=== PATIENT | female | born 1940 | race Caucasian/White ===

== ENCOUNTER 2017-02-22 08:49 | Emergency (ER) | payer OTHER ==
[2017-02-22 08:53] VITALS: TEMP 98.4; BMI 28.9
[2017-02-22] MEDS ORDERED: OXYMETAZOLINE 0.05% NASAL SOLUTION 15 ML BOTTLE NS ONE (09:03)
--- NOTE | 2017-02-22 09:53 | PDOC ---
History of Present Illness - General Chief Complaint: Nasal Bleeding Stated Complaint: NOSE BLEED Time Seen by Provider: 02/22/17 08:54 - History of Present Illness Initial Comments: 02/22/17 09:48 76-year-old female with a past medical history of hypertension, polymyalgia rheumatica, on ASA 81mg, lung ca and uterine ca in remission p/w nose bleeding from the R nostril since 1am. Patient denies any trauma or nose picking. She denies any clots, only drops of bright red blood. She has been using a towel to wipe the blood pressure has not placed any pressure on her nose. Does not feel the blood trickling back in her throat. She reports a nosebleed 3 weeks ago that resolved on its own after one hour. She denies any nosebleeds prior to that. She reports she was in her usual state of good health and is not on any new medications. She reports her blood pressure is typically well controlled. Denies fevers, chills, nausea, vomiting, diarrhea Denies chest pain or shortness of breath Denies headache, focal weakness or numbness, dizziness. PMD: Dr. Colindres Past History - Past Medical History Allergies/Adverse Reactions: Allergies Allergy/AdvReac Type Severity Reaction Status Date / Time No Known Allergies Allergy Verified 01/08/16 08:15 Home Medications: Ambulatory Orders Aspirin [Aspir-Low] 81 mg PO DAILY 12/06/13 Amox-Tr/K Cl [Augmentin - 875Mg Tablet] 1 tab PO BID #10 tablet 02/22/17 Anemia: No Asthma: No Cancer: Yes (UTERUS/LUNG) Cardiac Disorders: Yes (CAD,stents x2) CVA: No COPD: No CHF: No Dementia: No Diabetes: No (BORDERLINE- DIET CONTROLLED) GI Disorders: Yes (GERD) Disorders: No HTN: Yes Hypercholesterolemia: Yes Liver Disease: No Seizures: No Thyroid Disease: No - Surgical History Abdominal Surgery: Yes Appendectomy: No Cardiac Surgery: No (Angioplasty with Stents 09/2014) Cholecystectomy: Yes Lung Surgery: Yes (Left Lobectomy) Neurologic Surgery: No Orthopedic Surgery: No - Immunization History Td Vaccination: (UNKNOWN) Immunization Up to Date: Yes - Suicide/Smoking/Psychosocial Hx Smoking Status: No Smoking History: Former smoker Have you smoked in the past 12 months: No Number of Cigarettes Smoked Daily: 0 If you are a former smoker, when did you quit?: 2004 Information on smoking cessation initiated: No Hx Alcohol Use: No Drug/Substance Use Hx: No Substance Use Type: None Hx Substance Use Treatment: No Review of Systems - Review of Systems Comments:: 02/22/17 09:53 GENERAL/CONSTITUTIONAL: No fever or chills. No weakness. HEAD, EYES, EARS, NOSE AND THROAT: No change in vision. No ear pain or discharge. No sore throat. +nose bleed GASTROINTESTINAL: No nausea, vomiting, diarrhea or constipation. GENITOURINARY: No dysuria, frequency, or change in urination. CARDIOVASCULAR: No chest pain or shortness of breath. RESPIRATORY: No cough, wheezing, or hemoptysis. MUSCULOSKELETAL: No joint or muscle swelling or pain. No neck or back pain. SKIN: No rash NEUROLOGIC: No headache, vertigo, loss of consciousness, or change in strength/ sensation. ENDOCRINE: No increased thirst. No abnormal weight change. HEMATOLOGIC/LYMPHATIC: No anemia, easy bleeding, or history of blood clots. ALLERGIC/IMMUNOLOGIC: No hives or skin allergy. *Physical Exam - Vital Signs Last Vital Signs Temp Pulse Resp BP Pulse Ox 98.4 F 107 H 18 142/81 97 02/22/17 08:50 02/22/17 08:50 02/22/17 08:50 02/22/17 08:50 02/22/17 08:50 - Physical Exam Comments: 02/22/17 09:54 GENERAL: Awake, alert, and fully oriented, in no acute distress HEAD: No signs of trauma EYES: PERRLA, EOMI, sclera anicteric, conjunctiva clear ENT: Auricles normal inspection, hearing grossly normal, + bright oozing blood from R nostril, appears to be coming from anteriorly, oropharynx clear without active bleeding posteriorly. Moist mucosa NECK: Normal ROM, supple, no lymphadenopathy, JVD, or masses LUNGS: Breath sounds equal, clear to auscultation bilaterally. No wheezes, and no crackles HEART: Regular rate and rhythm, normal S1 and S2, no murmurs, rubs or gallops ABDOMEN: Soft, nontender, normoactive bowel sounds. No guarding, no rebound. No masses EXTREMITIES: Normal range of motion, no edema. No clubbing or cyanosis. No cords, erythema, or tenderness NEUROLOGICAL: Normal speech, cranial nerves intact, negative pronator drift, 5/ 5 strength in all 4 extremities, normal sensation to light touch in all 4 extremities, normal cerebellar exam, normal gait, normal reflexes and tone SKIN: Warm, Dry, normal turgor, no rashes or lesions noted. Medical Decision Making - Medical Decision Making 02/22/17 09:56 76-year-old female presents with epistaxis. Initially tachycardic in triage to 107, heart rate 94 on my evaluation. Likely anterior bleed, Afrin has been applied and clamp has been placed. Will reassess in 20 minutes. 02/22/17 10:41 Clamp initially with hemostasis, but rebled. Had patient blow her nose, bleeding still appears anterior with no bleeding in the back of the pt's oropharynx. Rhinorocket placed and inflated with sterile saline. Will observe. Also placed a call to Dr. Colindres's answering service to give him an update. 02/22/17 11:[address] No call back from Dr[address] Colindres. No bleeding since rhinorocket placed, posterior OP clear with no blood. Cuff on rhino rocket round and firm. Will DC patient to follow up with ENT in 2 days and with augmentin for ppx. I discussed the physical exam findings, ancillary test results and final diagnoses with the patient. I answered all of the patient's questions. The patient was satisfied with the care received and felt comfortable with the discharge plan and treatment plan. The patient will call their primary care physician within 24 hours to arrange follow-up and will return to the Emergency Department with any new, persistent or worsening symptoms. *DC/Admit/Observation/Transfer Diagnosis at time of Disposition: Anterior Epistaxis - Discharge Dispostion Disposition: HOME Condition at time of disposition: Stable - Prescriptions Prescriptions: Amox-Tr/K Cl [Augmentin - 875Mg Tablet] 1 tab PO BID #10 tablet - Referrals Referrals: George Colindres MD [Primary Care Provider] - Adrián Desouza MD [Staff Physician] - - Patient Instructions Printed Discharge Instructions: Nosebleed Additional Instructions: Follow up with Dr. Desouza in 2 days. Call today for an appointment. Follow up with Dr. Colindres in 2-3 days. Take your antibiotics as prescribed to prevent infection from the nose packing. Please seek medical care immediately if you begin to feel weak, unbalanced, dizzy, experience shortness of breath, have trouble standing, begin to experience an additional nose bleeding event, or have any new or concerning symptoms. - Attestations Physician Attestion: 02/22/17 11:50 I, Dr. Wilbur Lawrence MD, attest that this document has been prepared under my direction and personally reviewed by me in its entirety. I further attest, that it accurately reflects all work, treatment, procedures and medical decision -making performed by me.
[2017-02-22 11:02] VITALS: BP 101/65; PULSE 86
== END 2017-02-22 11:53 | disposition home or self-care (01) ==
LOC: FER 08:49
PROC: 2Y41X5Z Packing of Nasal Region using Packing Material (ICD-10-PCS; principal; 2017-02-22)
DX: R04.0 Epistaxis (principal); I10 Essential (primary) hypertension; M35.3 Polymyalgia rheumatica; Z79.82 Long term (current) use of aspirin; Z85.42 Personal history of malignant neoplasm of other parts of uterus; Z85.118 Personal history of other malignant neoplasm of bronchus and lung; K21.9 Gastro-esophageal reflux disease without esophagitis; E78.00 Pure hypercholesterolemia, unspecified
CPT/HCPCS: 99282-25

== ENCOUNTER 2018-04-26 09:11 | Emergency (ER) | payer OTHER ==
--- NOTE | 2018-04-26 09:18 | PDOC ---
History of Present Illness - General Chief Complaint: Eye Problem Stated Complaint: LEFT EYE REDNESS Time Seen by Provider: 04/26/18 09:13 History Source: Patient Exam Limitations: No Limitations - History of Present Illness Initial Comments: 04/26/18 09:13 77 y/o female with left eye redness and shut close this morning. No vision change or pain. Denies cold. Had a recent URI. No fever or chills. No discharge from left eye. Severity: mild Associated Symptoms: reports: denies symptoms Past History - Past Medical History Allergies/Adverse Reactions: Allergies Allergy/AdvReac Type Severity Reaction Status Date / Time No Known Allergies Allergy Verified 04/26/18 09:13 Home Medications: Ambulatory Orders Aspirin [Aspir-Low] 81 mg PO DAILY 12/06/13 Acetaminophen [Tylenol -] 1,000 mg PO Q8H PRN 04/26/18 Atorvastatin Ca [Lipitor] 10 mg PO HS 04/26/18 Benazepril HCl [Lotensin] 40 mg PO DAILY 04/26/18 Cholecalciferol (Vitamin D3) [Vitamin D] 2,000 unit PO DAILY 04/26/18 Loratadine [Claritin] 10 mg PO DAILY PRN 04/26/18 Sertraline HCl [Zoloft -] 50 mg PO DAILY 04/26/18 Tobramycin/Dexamethasone [Tobradex Eye Drops] 5 ml OP QID #5 drops.susp Anemia: No Asthma: No Cancer: Yes (UTERUS/LUNG) Cardiac Disorders: Yes (CAD,stents x2) CVA: No COPD: No CHF: No Dementia: No Diabetes: No (BORDERLINE- DIET CONTROLLED) GI Disorders: Yes (GERD) Disorders: No HTN: Yes Hypercholesterolemia: Yes Liver Disease: No Seizures: No Thyroid Disease: No - Surgical History Abdominal Surgery: Yes Appendectomy: No Cardiac Surgery: No (Angioplasty with Stents 09/2014) Cholecystectomy: Yes Lung Surgery: Yes (Left Lobectomy) Neurologic Surgery: No Orthopedic Surgery: No - Immunization History Td Vaccination: (UNKNOWN) Immunization Up to Date: Yes - Suicide/Smoking/Psychosocial Hx Smoking Status: No Smoking History: Former smoker Have you smoked in the past 12 months: No Number of Cigarettes Smoked Daily: 0 If you are a former smoker, when did you quit?: 2004 Hx Alcohol Use: No Drug/Substance Use Hx: No Substance Use Type: None Hx Substance Use Treatment: No Review of Systems - Review of Systems Able to Perform ROS?: Yes Is the patient limited Icelandic proficient: No Constitutional: No: Chills, Fever HEENTM: No: Eye Pain, Blurred Vision Respiratory: No: Cough, Shortness of Breath Cardiac (ROS): No: Chest Pain All Other Systems: Reviewed and Negative *Physical Exam - Physical Exam General Appearance: Yes: Nourished, Appropriately Dressed. No: Apparent Distress HEENT: positive: EOMI, CHELSY, Normal ENT Inspection, Normal Voice, Pharynx Normal , Other (left eye with mild erythema, no discharge noted, no acute angle glaucoma noted) Neck: positive: Trachea midline, Normal Thyroid, Supple. negative: Tender, Rigid Respiratory/Chest: positive: Lungs Clear, Normal Breath Sounds. negative: Chest Tender, Respiratory Distress, Accessory Muscle Use Cardiovascular: positive: Regular Rhythm, Regular Rate, S1, S2. negative: Edema , JVD, Murmur Vascular Pulses: Femoral (R): 4+, Femoral (L): 4+, Carotid (R): 4+, Carotid (L) : 4+, Dorsalis-Pedis (R): 4+, Doralis-Pedis (L): 4+ Gastrointestinal/Abdominal: positive: Normal Bowel Sounds, Flat, Soft. negative : Tender, Organomegaly, Pulsatile Mass Lymphatic: negative: Adenopathy, Tenderness, Other Musculoskeletal: positive: Normal Inspection. negative: CVA Tenderness Extremity: positive: Normal Capillary Refill, Normal Inspection, Normal Range of Motion Integumentary: positive: Normal Color, Dry, Warm Neurologic: positive: helix coil winder II-XII NML intact, Fully Oriented, Alert, Normal Mood/ Affect, Normal Response, Motor Strength 5/5 ED Treatment Course - ADDITIONAL ORDERS Additional order review: 04/26/18 09:16 Let eye conjunctivitis Keep clean Tobradex eye drops If worsen return to ER *DC/Admit/Observation/Transfer Diagnosis at time of Disposition: Conjunctivitis Qualifiers: Conjunctivitis type: acute Laterality: left Diagnosis at time of Disposition: (Ruled Out): Conjunctivitis due to Acanthamoeba - Discharge Dispostion Disposition: HOME Condition at time of disposition: Good Decision to Admit order: No - Referrals Referrals: George Colindres MD [Primary Care Provider] - - Patient Instructions Printed Discharge Instructions: DI for Conjunctivitis Additional Instructions: Keep clean Tobradex eye drops 1 drop 4x/day for 5 days to left eye If worsen return to ER - Post Discharge Activity
[2018-04-26 09:22] VITALS: BP 120/80; PULSE 100; TEMP 97.8; BMI 30.5
== END 2018-04-26 09:25 | disposition home or self-care (01) ==
LOC: FER 09:11
DX: B60.12 Conjunctivitis due to Acanthamoeba (principal); Z87.891 Personal history of nicotine dependence; I10 Essential (primary) hypertension; E78.00 Pure hypercholesterolemia, unspecified; K21.9 Gastro-esophageal reflux disease without esophagitis; R73.03 Prediabetes
CPT/HCPCS: 99281-25

== ENCOUNTER 2018-04-27 09:45 | Emergency (ER) | payer OTHER ==
--- NOTE | 2018-04-27 09:53 | PDOC ---
Attending Attestation - Resident Resident Name: [email or web address] - HPI HPI: 04/27/18 10:43 Pt presents to the ED complaining of a one day history of nausea, subjective fevers, myalgias, nasal discharge and sore throat. Also complains of diffuse, mild abdominal pain worse in the RLQ and diarrhea. Seen in the ED yesterday for conjunctivitis. - Physicial Exam PE: 04/27/18 10:45 Agree with resident exam. Patient is mildly tachycardic. Abdomen is soft, non distended and non tender on my exam. - Medical Decision Making 04/27/18 10:47 Pt presents to the ED complaining of subjective fever, nausea, diarrhea and non productive cough. Most likely seconardary to viral syndrome--will test for flu. Given her tachycardia and reports of fever, will check labs to evaluate for sepsis. Given her abdominal pain, will check CT abdomen pelvis to evaluate for intraabdominal pathology.
--- NOTE | 2018-04-27 10:09 | PDOC ---
History of Present Illness - General Chief Complaint: Respiratory Stated Complaint: DEHYDRATION Time Seen by Provider: 04/27/18 09:53 - History of Present Illness Initial Comments: 77 year old female with PMH of hypertension, polymyalgia rheumatica, depression , CAD (s/p stents x 2 , 2 years prior on ASA 81mg), lung ca (s/p L sided pneumonectomy) and uterine cancer (in remission) presenting with nausea, diarrhea, abdominal pain, cough, conjunctivitis, and myalgias since yesterday afternoon. Her symptoms started with some muscle pain yesterday and she began to lose energy and noticed dry heaves. Describes her abdominal pain as right lower quadrant crampy abdominal pain. She was also here yesterday for an erythematous left eye that was diagnosed as a conjunctivitis for which she is taking eye drops. Her daughter at bedside states that she felt warm this morning and received some Tylenol at 9 AM. Denies any actual vomiting, chest pain, headache, chest pain, or other symptoms. 04/27/18 10:09 Past History - Past Medical History Allergies/Adverse Reactions: Allergies Allergy/AdvReac Type Severity Reaction Status Date / Time No Known Allergies Allergy Verified 04/26/18 09:13 Home Medications: Ambulatory Orders Aspirin [Aspir-Low] 81 mg PO DAILY 12/06/13 Acetaminophen [Tylenol -] 1,000 mg PO Q8H PRN 04/26/18 Atorvastatin Ca [Lipitor] 10 mg PO HS 04/26/18 Benazepril HCl [Lotensin] 40 mg PO DAILY 04/26/18 Cholecalciferol (Vitamin D3) [Vitamin D] 2,000 unit PO DAILY 04/26/18 Loratadine [Claritin] 10 mg PO DAILY PRN 04/26/18 Sertraline HCl [Zoloft -] 50 mg PO DAILY 04/26/18 Tobramycin/Dexamethasone [Tobradex Eye Drops] 5 ml OP QID #5 drops.susp Ciprofloxacin [Cipro -] 500 mg PO Q12H 7 Days #14 tablet 04/27/18 Metronidazole 500 mg PO TID 7 Days #21 tablet 04/27/18 Anemia: No Asthma: No Cancer: Yes (UTERUS/LUNG) Cardiac Disorders: Yes (CAD,stents x2) CVA: No COPD: No CHF: No Dementia: No Diabetes: No (BORDERLINE- DIET CONTROLLED) GI Disorders: Yes (GERD) Disorders: No HTN: Yes Hypercholesterolemia: Yes Liver Disease: No Seizures: No Thyroid Disease: No - Surgical History Abdominal Surgery: Yes Appendectomy: No Cardiac Surgery: No (Angioplasty with Stents 09/2014) Cholecystectomy: Yes Lung Surgery: Yes (Left Lobectomy) Neurologic Surgery: No Orthopedic Surgery: No - Immunization History Td Vaccination: (UNKNOWN) Immunization Up to Date: Yes - Suicide/Smoking/Psychosocial Hx Smoking Status: No Smoking History: Former smoker Have you smoked in the past 12 months: No Number of Cigarettes Smoked Daily: 0 If you are a former smoker, when did you quit?: 2004 Hx Alcohol Use: No Drug/Substance Use Hx: No Substance Use Type: None Hx Substance Use Treatment: No Review of Systems - Review of Systems Constitutional: No: Chills, Diaphoresis HEENTM: No: Blurred Vision, Tearing Respiratory: No: Cough, Orthopnea, Shortness of Breath Cardiac (ROS): No: Chest Pain, Lightheadedness, Palpitations ABD/GI: Yes: Diarrhea, Nausea. No: Constipated, Vomiting : Yes: Frequency. No: Dysuria, Discharge, Hematuria Musculoskeletal: Yes: Joint Pain, Muscle Pain, Muscle Weakness. No: Back Pain Integumentary: No: Bruising, Erythema, Flushing, Lesions, Lumps Neurological: No: Headache, Numbness, Paresthesia Psychiatric: Yes: Depression. No: Anxiety Endocrine: No: Flushing, Intolerance to Heat, Increased Urine Hematologic/Lymphatic: No: Anemia, Blood Clots, Easy Bleeding *Physical Exam - Physical Exam General Appearance: Yes: Nourished, Appropriately Dressed. No: Apparent Distress HEENT: positive: EOMI, CHELSY, Normal ENT Inspection, Normal Voice, Other (dry mucous membranes) Neck: positive: Trachea midline, Normal Thyroid, Supple. negative: Tender, Rigid Respiratory/Chest: positive: Chest Tender, Lungs Clear. negative: Normal Breath Sounds (absent left sided lung sounds), Respiratory Distress, Accessory Muscle Use Cardiovascular: positive: Regular Rhythm, Regular Rate, Murmur, Tachycardia, Systolic Murmur. negative: Edema, JVD, Diastolic Murmur, Irregularly Irregular , Irregular Gastrointestinal/Abdominal: positive: Normal Bowel Sounds, Flat, Soft. negative : Tender Lymphatic: negative: Adenopathy, Tenderness Musculoskeletal: positive: Normal Inspection. negative: Other Extremity: positive: Normal Inspection. negative: Normal Range of Motion ( decreaed overall range of motion) Integumentary: positive: Normal Color, Dry, Warm Neurologic: positive: Fully Oriented, Alert, Normal Mood/Affect, Normal Response. negative: Motor Strength 5/5 (4/5) ED Treatment Course - LABORATORY CBC & Chemistry Diagram: 04/27/18 10:25 04/27/18 10:25 Medical Decision Making - Medical Decision Making 77 year old female presenting with right lower abdominal pain for the past day. WBC [address] abd/ pelvis demonstratinf right sided diverticulitis. UA/ flu negative. Patient tolerated PO flagyl and cipro. VSS after tylenol and IV fluids. Will DC with 7 days cipro/ flagyl and GI follow up. 04/27/18 13:42 *DC/Admit/Observation/Transfer Diagnosis at time of Disposition: Diverticulitis - Discharge Dispostion Disposition: HOME Condition at time of disposition: Improved Decision to Admit order: No - Prescriptions Prescriptions: Ciprofloxacin [Cipro -] 500 mg PO Q12H 7 Days #14 tablet Metronidazole 500 mg PO TID 7 Days #21 tablet - Referrals Referrals: George Colindres MD [Primary Care Provider] - Jerson Prabhakar DO [Staff Physician] - - Patient Instructions Printed Discharge Instructions: DI for Diverticulitis Additional Instructions: Please take your metronidazole 3 times a day and ciprofloxacin twice a day for 7 days. Please stay hydrated. Please folow up with the Gi doctor Vanna. Please return to our ED if you are having nausea, vomiting, diarrhea, or other symptoms. - Post Discharge Activity
[2018-04-27 10:10] VITALS: BMI 30.4
[2018-04-27] MEDS ORDERED: SODIUM CHLORIDE 0.9% 500 ML INFUS.BAG IV ONE (10:14)
[2018-04-27 10:41] LABS: HEMATOCRIT 32.9 % (32.4-45.2); HEMOGLOBIN 10.9 GM/dl (10.7-15.3); MCH 29.9 pg (25.7-33.7); MCHC 33.1 g/dl (32.0-36.0); MEAN CELL VOLUME 90.2 fl (80-96); MEAN PLT VOLUME 9.1 fl (7.5-11.1); PLATELET COUNT 264 K/MM3 (134-434); RBC 3.64 M/mm3 (3.60-5.2); RDW 13.1 % (11.6-15.6); WHITE BLOOD COUNT 14.6 K/mm3 (4.0-10.8)
[2018-04-27 10:57] LABS: INR 1.25 (0.82-1.09); PROTHROMBIN TIME (PATIENT) 13.9 SEC (10.2-13.0)
[2018-04-27 11:01] LABS: ALBUMIN 3.2 g/dl (3.5-5.0); ALK PHOS 73 U/L (32-92); ANION GAP 7 MMOL/L (8-16); BILIRUBIN,TOTAL 0.4 mg/dl (0.2-1.0); BLOOD UREA NITROGEN 19 mg/dl (7-18); CALCIUM 9.3 mg/dl (8.4-10.2); CHLORIDE 101 mmol/L (98-107); CO2 26 mmol/L (22-28); CREATININE 0.5 mg/dl (0.6-1.3); GLUCOSE,RANDOM 109 mg/dl (74-106); POTASSIUM 3.5 mmol/L (3.5-5.1); SGOT/AST 17 U/L (10-42); SGPT/ALT 11 U/L (10-40); SODIUM 134 mmol/L (136-145); TOT PROT 6.4 g/dl (6.4-8.3)
[2018-04-27] MEDS: SODIUM CHLORIDE 0.9% 500 ML INFUS.BAG IV ONE ×2 (11:15→12:06)
[2018-04-27 11:41] LABS: ANISOCYTOSIS 1+; PLATELET ESTIMATE ADEQUATE
[2018-04-27 11:42] LABS: OVALOCYTE 1+
[2018-04-27 12:15] LABS: URINE APPEARANCE Clear; URINE BILIRUBIN Negative (NEGATIVE); URINE COLOR Yellow; URINE GLUCOSE (UA) Negative (NEGATIVE); URINE KETONE Negative (NEGATIVE); URINE LEUK ESTERASE 1+ (NEGATIVE); URINE NITRITE Negative (NEGATIVE); URINE PROTEIN Negative (NEGATIVE); URINE UROBILINOGEN 0.2 (0.2-1.0)
[2018-04-27 12:46] LABS: EPI CELLS FEW /HPF; URINE RBC 0-2 /hpf (0-3)
[2018-04-27 12:54] VITALS: BP 117/50; PULSE 88; TEMP 99.3
[2018-04-27] MEDS ORDERED: CIPROFLOXACIN 500 MG TABLET (RESTRICTED TO ID) PO ONE (13:36)
[2018-04-27] MEDS ORDERED: metroNIDAZOLE 500 MG TABLET PO ONE (13:36)
[2018-04-27] MEDS ORDERED: CIPROFLOXACIN 250 MG TABLET (RESTRICTED TO ID) PO ONE (13:45)
[2018-04-27] MEDS ORDERED: metroNIDAZOLE 250 MG TABLET ONE (13:45)
== END 2018-04-27 14:15 | disposition home or self-care (01) ==
LOC: SUPCPDRO 09:45 → FER 09:45
PROC: 3E0337Z Introduction of Electrolytic and Water Balance Substance into Peripheral Vein, Percutaneous Approach (ICD-10-PCS; principal; 2018-04-27)
DX: K57.92 Diverticulitis of intestine, part unspecified, without perforation or abscess without bleeding (principal)
CPT/HCPCS: 36415; 74177-TC; 80053; 81003; 81015; 85025; 85610; 86850; 86900; 86901; 87040; 87804; 99282-25

== ENCOUNTER 2019-02-05 18:18 | Inpatient (IN) | payer OTHER ==
[2019-02-05 19:19] LABS: BASO % 0.6 % (0-2.0); EOS % 2.8 % (0-4.5); HEMATOCRIT 36.8 % (32.4-45.2); HEMOGLOBIN 11.8 GM/dl (10.7-15.3); LYMPH % 26.5 % (8-40); MCH 29.1 pg (25.7-33.7); MCHC 32.2 g/dl (32.0-36.0); MEAN CELL VOLUME 90.5 fl (80-96); MEAN PLT VOLUME 10.1 fl (7.5-11.1); MONO % 5.9 % (3.8-10.2); NEUT % 64.2 % (42.8-82.8); PLATELET COUNT 238 K/MM3 (134-434); RBC 4.06 M/mm3 (3.60-5.2); WHITE BLOOD COUNT 8.5 K/mm3 (4.0-10.8)
[2019-02-05 19:26] LABS: ALBUMIN 3.9 g/dl (3.4-5.0); BILIRUBIN,TOTAL 0.6 mg/dl (0.2-1); CALCIUM 9.8 mg/dl (8.5-10); CREATININE 0.4 mg/dl (0.55-1.3); POTASSIUM 3.9 mmol/L (3.5-5.1); TOT PROT 7.3 g/dl (6.4-8.2)
[2019-02-06] MEDS: DEXTROSE 5%-0.45% SALINE 1,000 ML IV SCH (01:40)
--- NOTE | 2019-02-06 01:57 | PDOC ---
Documentation entered by Cat Dobbs SCRIBE, acting as scribe for Kalina Sun MD. Kalina Sun MD: This documentation has been prepared by the mehuleRinku Aiswarya, SCRIBE, under my direction and personally reviewed by me in its entirety. I confirm that the documentation accurately reflects all work, treatment, procedures, and medical decision making performed by me. History of Present Illness - General Chief Complaint: Chest Pain Stated Complaint: CHEST PAIN Time Seen by Provider: 02/05/19 19:16 History Source: Patient Exam Limitations: No Limitations - History of Present Illness Initial Comments: 02/05/19 20:37 The patient is a 78 year old female, with a significant PMH of uterus and lung cancer (remission ), CAD, stents x2, GERD, diverticulitis, HTN,and HLD, who presents to the emergency department with chest pain that began today at 4 pm. The patient states she was watering the plants today when she had a sudden onset of anterior mid sternal chest pain that radiated to the left side. She endorses associated symptoms of flatulence and diarrhea ( began a few days ago) , mild relief with a Immodium. Patient notes pain is alleviated when sitting up and reports no prior episodes of chest pain in the past. She states chest pain has decreased upon arrival to the ER. The patient denies shortness of breath, headache and dizziness.Denies fever, chills, nausea, vomit, and constipation. Denies dysuria, frequency, urgency and hematuria. Allergies: NKDA Past surgical history:Abdominal ,angioplasty with stents 09/2014, cholecystectomy , left lobectomy Social history: Former smoker (quit smoking 20 years ago) PCP: Policy Specialist -Dr. Resendez. Past History - Past Medical History Allergies/Adverse Reactions: Allergies Allergy/AdvReac Type Severity Reaction Status Date / Time No Known Allergies Allergy Verified 02/05/19 18:21 Home Medications: Ambulatory Orders Aspirin [Aspir-Low] 81 mg PO DAILY 12/06/13 Acetaminophen [Tylenol -] 1,000 mg PO Q8H PRN 04/26/18 Atorvastatin Ca [Lipitor] 10 mg PO HS 04/26/18 Cholecalciferol (Vitamin D3) [Vitamin D] 2,000 unit PO DAILY 04/26/18 Loratadine [Claritin] 10 mg PO DAILY PRN 04/26/18 Sertraline HCl [Zoloft -] 50 mg PO DAILY 04/26/18 Anemia: No Asthma: No Cancer: Yes (UTERUS/LUNG) Cardiac Disorders: Yes (CAD,stents x2) CVA: No COPD: No CHF: No Dementia: No Diabetes: No (BORDERLINE- DIET CONTROLLED) GI Disorders: Yes (GERD DIVERTICULITIS) Disorders: No HTN: Yes Hypercholesterolemia: Yes Liver Disease: No Seizures: No Thyroid Disease: No - Surgical History Abdominal Surgery: Yes Appendectomy: No Cardiac Surgery: No (Angioplasty with Stents 09/2014) Cholecystectomy: Yes Lung Surgery: Yes (Left Lobectomy) Neurologic Surgery: No Orthopedic Surgery: No - Immunization History Td Vaccination: (UNKNOWN) Immunization Up to Date: Yes - Suicide/Smoking/Psychosocial Hx Smoking Status: No Smoking History: Former smoker Have you smoked in the past 12 months: No Number of Cigarettes Smoked Daily: 0 If you are a former smoker, when did you quit?: 20 YEARS AGO Information on smoking cessation initiated: No Hx Alcohol Use: No Drug/Substance Use Hx: No Substance Use Type: None Hx Substance Use Treatment: No Review of Systems - Review of Systems Able to Perform ROS?: Yes Comments:: 02/05/19 20:38 GENERAL/CONSTITUTIONAL: No fever or chills. No weakness. HEAD, EYES, EARS, NOSE AND THROAT: No change in vision. No ear pain or discharge. No sore throat. CARDIOVASCULAR: +Chest pain. No shortness of breath. RESPIRATORY: No cough, wheezing, or hemoptysis. GASTROINTESTINAL: No nausea, vomiting, diarrhea or constipation. GENITOURINARY: No dysuria, frequency, or change in urination. MUSCULOSKELETAL: No joint or muscle swelling or pain. No neck or back pain. SKIN: No rash NEUROLOGIC: No headache, vertigo, loss of consciousness, or change in strength/ sensation. ENDOCRINE: No increased thirst. No abnormal weight change. HEMATOLOGIC/LYMPHATIC: No anemia, easy bleeding, or history of blood clots. ALLERGIC/IMMUNOLOGIC: No hives or skin allergy. *Physical Exam - Vital Signs Last Vital Signs Temp Pulse Resp BP Pulse Ox 98.4 F 87 16 101/60 99 02/05/19 18:21 02/05/19 18:21 02/05/19 18:21 02/05/19 18:21 02/05/19 18:21 - Physical Exam Comments: 02/05/19 20:38 GENERAL: Awake, alert, and fully oriented, in no acute distress HEAD: No signs of trauma EYES: PERRLA, EOMI, sclera anicteric, conjunctiva clear ENT: Auricles normal inspection, hearing grossly normal, nares patent, oropharynx clear without exudates. Moist mucosa NECK: Normal ROM, supple, no lymphadenopathy, JVD, or masses LUNGS: No breath sounds to the left lung (left pneumonectomy). Right lung clear. No wheezes, and no crackles HEART: +2/6 systolic murmur left sternal border. ABDOMEN: Soft, nontender, normoactive bowel sounds. No guarding, no rebound. No masses EXTREMITIES: Normal range of motion, no edema. No clubbing or cyanosis. No cords, erythema, or tenderness NEUROLOGICAL: Cranial nerves II through XII grossly intact. Normal speech, normal gait SKIN: Warm, Dry, normal turgor, no rashes or lesions noted. ED Treatment Course - LABORATORY CBC & Chemistry Diagram: 02/05/19 18:45 02/05/19 18:45 - ADDITIONAL ORDERS Additional order review: 02/05/19 18:45 RBC 4.06 MCV 90.5 MCHC 32.2 RDW 14.0 MPV 10.1 Neutrophils % 64.2 Lymphocytes % 26.5 Monocytes % 5.9 Eosinophils % 2.8 Basophils % 0.6 - RADIOLOGY Radiology Studies Ordered: Category Date Time Status ABDOMEN & PELVIS CT WITH CONTR [CT] Stat CT Scan 02/05/19 20:57 Completed Medical Decision Making - Medical Decision Making 02/05/19 23:22 As noted above, this 78-year-old woman with a history of coronary artery disease , lung/uterine malignancy presents with several hour history of lower substernal chest pain with some radiation to the mid back but without other associated symptoms. Exam as noted. Twelve-lead electrocardiogram was performed: Normal sinus rhythm at 80 bpm; LDH voltage pattern is present. [place], intervals and waveforms show no evidence of abnormality. No significant change from previous EKG tracing. Laboratory evaluation notable for nonelevated troponin and mildly elevated lipase (423) Abdominal/pelvic CT performed to evaluate for acute early pancreatitis: Interpretation by Dr. Kaur of the radiology staff. In comparison to prior CT study of 12/3/18 is increase, bile duct dilatation (1.7 cm, previously 1.2 cm) is mild increased intrahepatic biliary dilatation as well as mild increased dilatation of the main pancreatic duct. No CBD stones or masses seen. No other significant acute abnormalities seen Results discussed with the patient and her daughter. She reports that most of her lower chest pain/back pain has resolved and she has developed no new symptoms. However, the patient has been NPO for approximately 12 hours, possibly decreasing inflammation in pancreas resulting in relief of pain. Because the issue of possible pancreatitis needs clarification , and because of her coronary artery disease requiring full rule out, admission is warranted Because gastroenterology consultation is not available at [facility] on weekends, the patient will be transferred to [facility] telemetry unit. Case discussed with BRIAN Morfin; patient admitted to Dr. diego lee *DC/Admit/Observation/Transfer Diagnosis at time of Disposition: Chest pain Qualifiers: Chest pain type: unspecified Qualified Code(s): R07.9 - Chest pain, unspecified - Discharge Dispostion Condition at time of disposition: Guarded Decision to Admit order: Yes - Referrals - Patient Instructions - Post Discharge Activity
--- NOTE | 2019-02-06 04:18 | HP ---
Admitting History and Physical - Primary Care Physician PCP: George Colindres - Admission Chief Complaint: Chest Pain, Diarrhea History of Present Illness: This is a 78 y/o woman with a PMhx of HTN, HLD, CAD s/p Stents x2, GERD, Diverticulitis, Uterine Ca, Lung Ca s/p Lobectomy (remission). Who presents to the [facility] with chest pain x 1600 yesterday. The patient states she was watering the plants yesterday, when she had a sudden onset of anterior mid sternal chest pain that radiated to the left side. She reports associated symptoms of flatulence and diarrhea (began a few days ago), mild relief with an Immodium. Patient reports the pain is alleviated when sitting up and reports no prior episodes of chest pain in the past. She states chest pain has decreased upon arrival to the ER. The patient denies shortness of breath, headache and dizziness. Denies fever, chills, nausea, vomit, and constipation. Denies dysuria, frequency,urgency and hematuria. History Source: Patient, Family Member Limitations to Obtaining History: No Limitations - Past Medical History Cardiovascular: Yes: CAD, HTN, Hyperlipdemia Pulmonary: Yes: Cancer (remission) Gastrointestinal: Yes: Diverticulitis, GERD Reproductive: Yes: Other (uterine ca (remission)) - Past Surgical History Past Surgical History: Yes: Cholecystectomy, Stent Additional Past Surgical History: Angioplasty Left Lobectomy - Smoking History Smoking history: Former smoker Have you smoked in the past 12 months: No Aproximately how many cigarettes per day: 0 If you are a former smoker, when did you quit?: 20 YEARS AGO - Alcohol/Substance Use Hx Alcohol Use: No History of Substance Use: reports: None - Social History Usual Living Arrangement: Yes: Alone ADL: Independent Occupation: retired History of Recent Travel: No Home Medications - Allergies Allergies/Adverse Reactions: Allergies Allergy/AdvReac Type Severity Reaction Status Date / Time No Known Allergies Allergy Verified 02/05/19 18:21 - Home Medications Home Medications: Ambulatory Orders Aspirin [Aspir-Low] 81 mg PO DAILY 12/06/13 Acetaminophen [Tylenol -] 1,000 mg PO Q8H PRN 04/26/18 Atorvastatin Ca [Lipitor] 10 mg PO HS 04/26/18 Cholecalciferol (Vitamin D3) [Vitamin D] 2,000 unit PO DAILY 04/26/18 Loratadine [Claritin] 10 mg PO DAILY PRN 04/26/18 Sertraline HCl [Zoloft -] 50 mg PO DAILY 04/26/18 Family Disease History - Family Disease History Family History: Unable to Obtain Review of Systems - Review of Systems Constitutional: reports: No Symptoms Eyes: reports: No Symptoms HENT: reports: No Symptoms Neck: reports: No Symptoms Cardiovascular: reports: Chest Pain Respiratory: reports: No Symptoms Gastrointestinal: reports: Diarrhea Genitourinary: reports: No Symptoms Breasts: reports: No Symptoms Reported Musculoskeletal: reports: No Symptoms Integumentary: reports: No Symptoms Neurological: reports: No Symptoms Endocrine: reports: No Symptoms Hematology/Lymphatic: reports: No Symptoms Psychiatric: reports: No Symptoms Pain Intensity: 4 Physical Examination Vital Signs: Vital Signs Temperature 98.6 F 02/06/19 00:47 Pulse Rate 79 02/06/19 00:47 Respiratory Rate 16 02/06/19 00:47 Blood Pressure 100/71 02/06/19 00:47 O2 Sat by Pulse Oximetry (%) 98 02/06/19 00:47 Constitutional: Yes: Well Nourished, No Distress, Calm, Obese Eyes: Yes: WNL, Conjunctiva Clear, EOM Intact, PERRL HENT: Yes: WNL, Atraumatic, Normocephalic Neck: Yes: WNL, Supple, Trachea Midline Cardiovascular: Yes: Regular Rate and Rhythm, Murmur, S1, S2 Respiratory: Yes: WNL, Regular, CTA Bilaterally Gastrointestinal: Yes: Normal Bowel Sounds, Soft, Abdomen, Obese. No: Tenderness, Tenderness, Epigastrium, Tenderness, Rebound Renal/: Yes: WNL Breast(s): Yes: WNL Musculoskeletal: Yes: WNL Extremities: Yes: WNL Edema: No Peripheral Pulses WNL: Yes Integumentary: Yes: WNL Neurological: Yes: WNL, Alert, Oriented ...Motor Strength: WNL Psychiatric: Yes: WNL, Alert, Oriented Labs: CBC, BMP 02/05/19 18:45 02/05/19 18:45 Laboratory Results - last 24 hr 02/05/19 02/05/19 02/05/19 18:45 18:45 18:45 WBC 8.5 RBC 4.06 Hgb 11.8 Hct 36.8 MCV 90.5 MCH 29.1 MCHC 32.2 RDW 14.0 Plt Count 238 MPV 10.1 Absolute Neuts (auto) 5.4 Neutrophils % 64.2 Lymphocytes % 26.5 Monocytes % 5.9 Eosinophils % 2.8 Basophils % 0.6 Sodium 137 Potassium 3.9 Chloride 100 Carbon Dioxide 26 Anion Gap 11 BUN 23.0 H Creatinine 0.4 L Est GFR (CKD-EPI)AfAm 114.01 Est GFR (CKD-EPI)NonAf 98.37 Random Glucose 95 Calcium 9.8 Total Bilirubin 0.6 AST 21 ALT 13 Alkaline Phosphatase 98 Creatine Kinase 38 Troponin I < 0.03 Total Protein 7.3 Albumin 3.9 Lipase 02/05/19 02/06/19 18:45 01:50 WBC RBC Hgb Hct MCV MCH MCHC RDW Plt Count MPV Absolute Neuts (auto) Neutrophils % Lymphocytes % Monocytes % Eosinophils % Basophils % Sodium Potassium Chloride Carbon Dioxide Anion Gap BUN Creatinine Est GFR (CKD-EPI)AfAm Est GFR (CKD-EPI)NonAf Random Glucose Calcium Total Bilirubin AST ALT Alkaline Phosphatase Creatine Kinase Troponin I < 0.02 Total Protein Albumin Lipase 423 H Current Medications Generic Name Dose Route Start Last Admin Trade Name Freq PRN Reason Stop Dose Admin Acetaminophen 650 mg 02/06/19 06:36 Tylenol - PO Q6H PRN PAIN LEVEL 6-10 Aspirin 81 mg 02/06/19 10:00 Ecotrin - PO DAILY HI Atorvastatin Calcium 10 mg 02/06/19 22:00 Lipitor - PO HS HI Dextrose/Sodium Chloride 1,000 mls @ 60 mls/hr 02/06/19 00:30 02/06/19 01:40 D5-1/2ns - IV 60 mls/hr ASDIR HI Administration Loratadine 10 mg 02/06/19 06:35 Claritin - PO DAILY PRN NASAL CONGESTION Non-Formulary Medication 2,000 unit 02/06/19 10:00 Cholecalciferol (Vitamin D3) [Vitamin D3] PO DAILY HI Non-Formulary Medication 240 mg 02/06/19 10:00 Diltiazem Hcl [Tiazac] PO DAILY HI Sertraline HCl 50 mg 02/06/19 10:00 Zoloft - PO DAILY HI Imaging - Results Chest X-ray: Pending Cat Scan: Report Reviewed, Image Reviewed EKG: Image Reviewed Problem List - Problems (1) Chest pain Assessment/Plan: r/o ACS HEART Score 4-5 Continue cardiac monitoring Serial Enzymes neg x1, trend Appreciate Cardiology consult Echo Asa EKG-reviewed Chest Xray-pending Code(s): R07.9 - CHEST PAIN, UNSPECIFIED Qualifiers: Chest pain type: unspecified Qualified Code(s): R07.9 - Chest pain, unspecified (2) Elevated lipase Assessment/Plan: CTAP report- CBD dilatation, increased mild intrahepatic biliary tract dilatation, mild dilatation of the pancreatic duct, small midline ventral epigastric hernia containing fat only, no evidence of pneumoperitoneum, abscess , free intraperitoneal fluid or bowel obstruction Appreciate GI consult NPO Monitor CBC, BMP Gentle IVF Code(s): R74.8 - ABNORMAL LEVELS OF OTHER SERUM ENZYMES (3) CAD (coronary artery disease) Assessment/Plan: Continue home meds EKG- reviewed Code(s): I25.10 - ATHSCL HEART DISEASE OF [place] CORONARY ARTERY W/O ANG PCTRS (4) HTN (hypertension) Assessment/Plan: stable Continue home meds Code(s): I10 - ESSENTIAL (PRIMARY) HYPERTENSION (5) HLD (hyperlipidemia) Assessment/Plan: stable Continue home meds Code(s): E78.5 - HYPERLIPIDEMIA, UNSPECIFIED Assessment/Plan This is a 78 y/o woman with a PMHx of HTN, HLD, CAD. Placed in Telemetry Observation for Chest Pain r/o ACS, Elevated Lipase, Biliary Tract Dilatation for further evaluation of their emergent condition. Plan: See Problem List FEN D51/2NS@60ml/hr Replete lytes prn NPO DVT ppx OOB SCDs Dispo: Observation Visit type - Emergency Visit Emergency Visit: Yes ED Registration Date: 02/05/19 Care time: The patient presented to the Emergency Department on the above date and was hospitalized for further evaluation of their emergent condition. - New Patient This patient is new to me today: Yes Date on this admission: 02/06/19 - Critical Care Critical Care patient: No
[2019-02-06] MEDS ORDERED: LORATADINE 10 MG TABLET PO PRN (06:35)
[2019-02-06] MEDS ORDERED: ACETAMINOPHEN 325 MG TABLET (FP) PO PRN (06:36)
[2019-02-06 07:09] LABS: BASO % 0.3 % (0-2.0); EOS % 1.9 % (0-4.5); HEMATOCRIT 33.9 % (32.4-45.2); HEMOGLOBIN 11.1 GM/dL (10.7-15.3); LYMPH % 14.9 % (8-40); MCH 29.1 pg (25.7-33.7); MCHC 32.7 g/dl (32.0-36.0); MEAN CELL VOLUME 89.1 fl (80-96); MEAN PLT VOLUME 9.8 fl (7.5-11.1); MONO % 7.7 % (3.8-10.2); NEUT % 75.2 % (42.8-82.8); PLATELET COUNT 208 K/MM3 (134-434); RDW 14.6 % (11.6-15.6); WHITE BLOOD COUNT 6.4 K/mm3 (4.0-10.0)
[2019-02-06 08:00] LABS: ANION GAP 7 MMOL/L (8-16); BLOOD UREA NITROGEN 15.5 mg/dL (7-18); CALCIUM 9.7 mg/dL (8.5-10.1); CHLORIDE 104 mmol/L (98-107); CO2 30 mmol/L (21-32); CREATININE 0.5 mg/dL (0.55-1.3); GLUCOSE,RANDOM 96 mg/dL (74-106); MAGNESIUM 2.1 mg/dL (1.8-2.4); PHOSPHOROUS 3.6 mg/dL (2.5-4.9); POTASSIUM 4.4 mmol/L (3.5-5.1); SODIUM 141 mmol/L (136-145)
--- NOTE | 2019-02-06 09:05 | HOSP ---
Physical Examination Vital Signs: Seen and examined. Denies any cp pain fever chills n/v/d. Pt resting in chair with no signs or symptoms of distress Vital Signs Temperature 98.3 F 02/06/19 06:00 Pulse Rate 83 02/06/19 06:00 Respiratory Rate 18 02/06/19 06:00 Blood Pressure 139/58 L 02/06/19 06:00 O2 Sat by Pulse Oximetry (%) 96 02/06/19 04:35 Constitutional: Yes: Well Nourished, No Distress, Calm, Obese Eyes: Yes: WNL, Conjunctiva Clear, EOM Intact, PERRL HENT: Yes: WNL, Atraumatic, Normocephalic Neck: Yes: WNL, Supple, Trachea Midline Cardiovascular: Yes: Regular Rate and Rhythm, Murmur, S1, S2 Respiratory: Yes: WNL, Regular, CTA Bilaterally Gastrointestinal: Yes: Normal Bowel Sounds, Soft, Abdomen, Obese. No: Tenderness, Tenderness, Epigastrium, Tenderness, Rebound Renal/: Yes: WNL Breast(s): Yes: WNL Musculoskeletal: Yes: WNL Extremities: Yes: WNL Edema: No Peripheral Pulses WNL: Yes Integumentary: Yes: WNL Neurological: Yes: WNL, Alert, Oriented ...Motor Strength: WNL Psychiatric: Yes: WNL, Alert, Oriented Labs: CBC, BMP 02/06/19 06:04 02/06/19 06:04
--- NOTE | 2019-02-06 09:11 | CON.CARD ---
Consult Consult Specialty:: Cardiology Referred by:: Dr. Tavarez Reason for Consultation:: Chest pain - History of Present Illness Chief Complaint: epigastric pain and "burping" History of Present Illness: 78F CAD s/p PCIs > 1 year ago, hx lung CA s/p resection, presents with epigastric pain and belching and she was concerned it "was my heart" No SOB. No recent exertional angina. Lipase elevated. CT w/ dilated hepatic ducts, increased from prior. ECG benign and TnI neg x3 - History Source History Provided By: Patient - Past Medical History Cardio/Vascular: Yes: CAD, HTN, Hyperlipdemia Pulmonary: Yes: Cancer (remission) Gastrointestinal: Yes: Diverticulitis, GERD - Past Surgical History Past Surgical History: Yes: Cholecystectomy, Stent - Alcohol/Substance Use Hx Alcohol Use: No History of Substance Use: reports: None - Smoking History Smoking history: Former smoker Have you smoked in the past 12 months: No Aproximately how many cigarettes per day: 0 If you are a former smoker, when did you quit?: 20 YEARS AGO - Social History ADL: Independent Occupation: retired History of Recent Travel: No Home Medications - Allergies Allergies/Adverse Reactions: Allergies Allergy/AdvReac Type Severity Reaction Status Date / Time No Known Allergies Allergy Verified 02/05/19 18:21 - Home Medications Home Medications: Ambulatory Orders Aspirin [Aspir-Low] 81 mg PO DAILY 12/06/13 Acetaminophen [Tylenol -] 1,000 mg PO Q8H PRN 04/26/18 Atorvastatin Ca [Lipitor] 10 mg PO HS 04/26/18 Cholecalciferol (Vitamin D3) [Vitamin D] 2,000 unit PO DAILY 04/26/18 Loratadine [Claritin] 10 mg PO DAILY PRN 04/26/18 Sertraline HCl [Zoloft -] 50 mg PO DAILY 04/26/18 Family Disease History - Family Disease History Family History: Unremarkable (not pertinent to this presentation) Review of Systems Findings/Remarks: see HPI - Review of Systems Constitutional: reports: No Symptoms, Unintentional Wgt. Loss HENT: reports: No Symptoms Neck: reports: No Symptoms Cardiovascular: reports: Chest Pain Respiratory: reports: No Symptoms Gastrointestinal: reports: Abdominal Pain, Indigestion Genitourinary: denies: No Symptoms, Burning, Discharge, Dysuria, Flank Pain, Frequency, Hematuria, Incontinence, Lesions, Menses, Pain, Testicular Mass, Testicular Pain, Testicular Swelling, Urgency, Vaginal Bleeding, Other Breasts: denies: No Symptoms Reported, See HPI, Breast Implants, Discharge from Nipple, Lumps, Pain, Skin Changes, Other Musculoskeletal: denies: No Symptoms, Back Pain, Crepitus, Decreased ROM, Extremity Pain, Joint Pain, Joint Swelling, Muscle Pain, Muscle Cramps, Muscle Weakness, Other Integumentary: denies: No Symptoms, Blister, Bruising, Change in Color, Eczema, Erythema, Incision, Lesions, Lump, Pallor, Pruritis, Rash, Wound, Other Neurological: denies: No Symptoms, Change in LOC, Change in Speech, Confusion, Dizziness, Headache, Incoordination, Numbness, Parasthesia, Pre-Existing Deficit , Seizure, Syncope, Tremors, Unsteady Gait, Weakness, Other Endocrine: denies: No Symptoms, Excessive Sweating, Flushing, Increased Hunger, Increased Thirst, Intolerance to Cold, Intolerance to Heat, Unexplained Weight Gain, Unexplained Weight Loss, Other Hematology/Lymphatic: denies: No Symptoms, Easily Bruised, Excessive Bleeding, Swollen Glands, Other - Risk Factors Known Risk Factors: Yes: Smoking, Other (known CAD s/p PCI > 1 year ago) Vital Signs: Vital Signs Temperature 98.3 F 02/06/19 06:00 Pulse Rate 83 02/06/19 06:00 Respiratory Rate 18 02/06/19 06:00 Blood Pressure 139/58 L 02/06/19 06:00 O2 Sat by Pulse Oximetry (%) 96 02/06/19 04:35 Constitutional: Yes: Calm Eyes: Yes: Conjunctiva Clear Respiratory: Yes: Other (Left old surgical incision, (Resection CA) w/ decreased breath sounds/ contra side clear, no rales or wheezing) Gastrointestinal: Yes: Soft (no rebound or guarding.) Cardiovascular: Yes: Regular Rate and Rhythm JVD: No Carotid Bruit: No Heart Sounds: Yes: S1, S2 (rrr) Murmur: Yes: Systolic Murmur Edema: No Peripheral Pulses WNL: Yes Neurological: Yes: Alert, Oriented - Other Data Labs, Other Data: CBC, BMP 02/06/19 06:04 02/06/19 06:04 Troponin, BNP 09/02/06/19 02/06/19 18:45 01:50 06:04 Troponin I < 0.03 < 0.02 < 0.02 B-Natriuretic Peptide 02/06/19 06:04 Troponin I B-Natriuretic Peptide 1578.9 H Troponin, BNP 02/05/19 02/06/19 02/06/19 18:45 01:50 06:04 Troponin I < 0.03 < 0.02 < 0.02 B-Natriuretic Peptide 02/06/19 06:04 Troponin I B-Natriuretic Peptide 1578.9 H Laboratory Tests 02/05/19 02/05/19 02/05/19 18:45 18:45 18:45 WBC Hct Plt Count AST 21 ALT 13 Alkaline Phosphatase 98 Troponin I < 0.03 Lipase 423 H 02/06/19 02/06/19 02/06/19 01:50 06:04 06:04 WBC 6.4 Hct 33.9 Plt Count 208 AST ALT Alkaline Phosphatase Troponin I < 0.02 < 0.02 Lipase NSR 80, LVH Stress Echo: Pending Imaging - Results Cat Scan: Report Reviewed, Image Reviewed EKG: Image Reviewed Assessment/Plan IMP: 1. Epigastric pain with elevated lipase and hepatic ductal dilatation 2. Chest pain secondary to above, same process, with no evidence of ACS 3. CAD w/ prior PCIs (>1 year), systolic murmur 4. HTN 5. HLD 6. Hx Lung CA REC: 1.GI eval, MRCP 2. Echo to eval murmur, suspect MR. 3. BP well controlled, cont home meds 4.No further cardiac w/u planned at this time beyond echo. Will follow, thank you
[2019-02-06] MEDS ORDERED: DILTIAZEM HCL 240 MG PO SCH (10:00)
[2019-02-06] MEDS: CHOLECALCIFEROL (VIT D3) 1,000 UNIT (25 MCG) TABLET PO SCH (10:41)
[2019-02-06] MEDS: ASPIRIN COATED 81 MG TABLET.EC PO SCH (10:41)
[2019-02-06] MEDS: SERTRALINE HCL 50 MG TABLET (FP) PO SCH (10:41)
[2019-02-06 11:55] LABS: ALBUMIN 3.5 g/dl (3.4-5.0); ALK PHOS 201 U/L (45-117); BILIRUBIN,DIRECT 0.5 mg/dL (0.0-0.2); BILIRUBIN,TOTAL 0.8 mg/dL (0.2-1); SGOT/AST 701 U/L (15-37); SGPT/ALT 455 U/L (13-61); TOT PROT 6.4 g/dl (6.4-8.2)
--- NOTE | 2019-02-06 15:15 | EKG ---
Test Reason : Blood Pressure : / mmHG Vent. Rate : 080 BPM Atrial Rate : 080 BPM P-R Int : 172 ms QRS Dur : 098 ms QT Int : 392 ms P-R-T Axes : 048 034 079 degrees QTc Int : 452 ms NORMAL SINUS RHYTHM VOLTAGE CRITERIA FOR LEFT VENTRICULAR HYPERTROPHY NONSPECIFIC ST AND T WAVE ABNORMALITY ABNORMAL ECG NO PREVIOUS ECGS AVAILABLE Confirmed by MD GUERRIER MOYSES ([id number]) on 02/06/2019 3:15:18 PM Referred By: DEB CONLEY Confirmed By:ALLIE GUERRIER MD
--- NOTE | 2019-02-06 19:43 | CON.GI ---
Consult Consult Specialty:: GI Referred by:: Hospitalist Service Reason for Consultation:: Abnormal liver chemistries, lower chest pain, elevated Lipase - History of Present Illness Chief Complaint: Lower chest pain, gas History of Present Illness: 78F in [place] up until yesterday, when she developed lower chest pain. The pain got worse after eating. She denied associated dysphagia, odynophagia, change in bowel habits. Initial LFTs were unrmearkable. They byron today. lipase was marginally elevated. CT scan revealed both increase in previously noted CBD dilatiaon as well as mildly dilated pancreatic duct. She is s/p cholecystectomy x multiple years prior. 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 Chaitanya Prieto, who has performed EGD and colonoscopies. She currently denies abdominal pain. She does complain of gas. She was evaluated by cardiology who felt that this was not cardiac in origin. - Past Medical History Cardio/Vascular: Yes: CAD, HTN, Hyperlipdemia Pulmonary: Yes: Cancer (remission) Gastrointestinal: Yes: Diverticulitis, GERD Heme/Onc: Yes: Other (Uterine cancer, Lung cancer) - Past Surgical History Past Surgical History: Yes: Cholecystectomy Additional Surgical History: Cardiac stent - Alcohol/Substance Use Hx Alcohol Use: No History of Substance Use: reports: None - Smoking History Smoking history: Former smoker Have you smoked in the past 12 months: No Aproximately how many cigarettes per day: 0 If you are a former smoker, when did you quit?: 20 YEARS AGO - Social History ADL: Independent Occupation: retired Place of : [employer] [facility] History of Recent Travel: No Home Medications - Allergies Allergies/Adverse Reactions: Allergies Allergy/AdvReac Type Severity Reaction Status Date / Time No Known Allergies Allergy Verified 02/05/19 18:21 - Home Medications Home Medications: Ambulatory Orders Aspirin [Aspir-Low] 81 mg PO DAILY 12/06/13 Acetaminophen [Tylenol -] 1,000 mg PO Q8H PRN 04/26/18 Atorvastatin Ca [Lipitor] 10 mg PO HS 04/26/18 Cholecalciferol (Vitamin D3) [Vitamin D] 2,000 unit PO DAILY 04/26/18 Loratadine [Claritin] 10 mg PO DAILY PRN 04/26/18 Sertraline HCl [Zoloft -] 50 mg PO DAILY 04/26/18 Family Disease History - Family Disease History Family Disease History: Other: Father (: 43: complications during cardiac cath), Mother (: 80: "a few things"), Brother (4, : "hrt problems"), Sister (2, 1 alive), Son (2, 1 killed), Daughter (1) Other Family History: No family history of colorectal cancer Physical Exam-GI Vital Signs: Vital Signs Temperature 98.2 F 02/06/19 14:00 Pulse Rate 66 02/06/19 14:00 Respiratory Rate 16 02/06/19 14:00 Blood Pressure 128/48 L 02/06/19 14:00 O2 Sat by Pulse Oximetry (%) 97 02/06/19 09:00 Constitutional: Yes: Calm Eyes: No: Sclera Icterus Cardiovascular: Yes: Regular Rate and Rhythm Respiratory: Yes: CTA Bilaterally Gastrointestinal Inspection: Yes: Scars (Long obliquie RUQ scar). No: Distention ...Auscultate: Yes: Normoactive Bowel Sounds ...Palpate: No: Hepatomegaly, Splenomegaly, Tenderness ...Percussion: No: Tympanitic Edema: LLE: Trace, RLE: Trace Neurological: Yes: Alert Labs: Hepatic Panel Total Bilirubin 0.8 mg/dL (0.2-1) 02/06/19 06:04 Direct Bilirubin 0.5 mg/dL (0.0-0.2) H 02/06/19 06:04 AST 701 U/L (15-37) H 02/06/19 06:04 ALT 455 U/L (13-61) H 02/06/19 06:04 Alkaline Phosphatase 201 U/L (45-117) H 02/06/19 06:04 Albumin 3.5 g/dl (3.4-5.0) 02/06/19 06:04 CBC, BMP 02/06/19 06:04 02/06/19 06:04 Problem List - Problems (1) Chest pain Assessment/Plan: Lower chest pain that worsened post prandially in setting of worsened dilated biliary tract and rising liver chemistries. Concern would be for choledocholithiasis. With dilated pancreatic duct, albeit her complaints seem to be both acute in onset and pain related, pancreatic malignancy would need to remain in differential as well. Discussed findings with Ms. Hoyos. She will be having an MRI with and without contrast with MRCP tonight. pending results, discussed the possibiltiy of needing ERCP for therapeutic purposes. For now: NPO except meds IV Hydration per primary team Initiated IV Abx and placed ID consult I discontinued tylenol in setting of rising liver chemistries Monitor daily labs: CBC/CMP Code(s): R07.9 - CHEST PAIN, UNSPECIFIED Qualifiers: Chest pain type: unspecified Qualified Code(s): R07.9 - Chest pain, unspecified
[2019-02-06] MEDS ORDERED: PIPERACILLIN/TAZOB 3.375 GM 3.375 GM in DEXTROSE 5%-WATER - 50 ML IVPB SCH (19:45)
[2019-02-06] MEDS ORDERED: PIPERACILLIN/TAZOBACTAM 3.375 GM VIAL IVPB ONE (21:22)
[2019-02-06] MEDS ORDERED: DEXTROSE 5%-WATER - 50 ML IVPB ONE (21:22)
[2019-02-06] MEDS: ATORVASTATIN CA 10 MG TABLET (FP) PO SCH (21:51)
[2019-02-06] MEDS: PIPERACILLIN/TAZOB 3.375 GM 3.375 GM in DEXTROSE 5%-WATER - 50 ML IVPB SCH (21:51)
[2019-02-07] MEDS ORDERED: PIPERACILLIN/TAZOBACTAM 3.375 GM VIAL IVPB ONE ×2 (00:57→21:55)
[2019-02-07] MEDS ORDERED: DEXTROSE 5%-WATER - 50 ML IVPB ONE ×2 (00:57→21:55)
[2019-02-07] MEDS: PIPERACILLIN/TAZOB 3.375 GM 3.375 GM in DEXTROSE 5%-WATER - 50 ML IVPB SCH ×3 (02:27→21:57)
[2019-02-07 06:48] LABS: BASO % 0.3 % (0-2.0); EOS % 3.2 % (0-4.5); HEMATOCRIT 33.1 % (32.4-45.2); HEMOGLOBIN 10.8 GM/dL (10.7-15.3); LYMPH % 16.3 % (8-40); MCH 29.1 pg (25.7-33.7); MCHC 32.7 g/dl (32.0-36.0); MEAN CELL VOLUME 89.3 fl (80-96); MEAN PLT VOLUME 9.8 fl (7.5-11.1); NEUT % 72.2 % (42.8-82.8); PLATELET COUNT 211 K/MM3 (134-434); RBC 3.71 M/mm3 (3.60-5.2); RDW 14.5 % (11.6-15.6); WHITE BLOOD COUNT 6.9 K/mm3 (4.0-10.0)
[2019-02-07 07:05] LABS: INR 1.08 (0.83-1.09); PROTHROMBIN TIME (PATIENT) 12.8 SEC (9.7-13.0)
[2019-02-07 07:14] LABS: ALBUMIN 3.2 g/dl (3.4-5.0); BILIRUBIN,TOTAL 0.9 mg/dL (0.2-1); CALCIUM 9.6 mg/dL (8.5-10.1); CREATININE 0.5 mg/dL (0.55-1.3); TOT PROT 6.2 g/dl (6.4-8.2)
--- NOTE | 2019-02-07 08:55 | PN ---
Progress Note, Physician Chief Complaint: Pt sitting at edge of bed with no complaint offered History of Present Illness: This is a 78 y/o woman with a PMhx of HTN, HLD, CAD s/p Stents x2, GERD, Diverticulitis, Uterine Ca, Lung Ca s/p Lobectomy (remission). Who presents to the [place] ED with chest pain. The patient states she was watering the plants when she had a sudden onset of anterior mid sternal chest pain that radiated to the left side. She reports associated symptoms of flatulence and diarrhea (began a few days ago), mild relief with an Immodium. Patient reports the pain is alleviated when sitting up and reports no prior episodes of chest pain in the past. She states chest pain has decreased upon arrival to the ER. The patient denies shortness of breath, headache and dizziness. Denies fever, chills, nausea, vomit, and constipation. Denies dysuria, frequency,urgency and hematuria. - Current Medication List Current Medications: Active Medications Aspirin (Ecotrin -) 81 mg PO DAILY [facility] Last Admin: 02/06/19 10:41 Dose: 81 mg Atorvastatin Calcium (Lipitor -) 10 mg PO HS [facility] Last Admin: 02/06/19 21:51 Dose: 10 mg Cholecalciferol (Vitamin D3 -) 2,000 unit PO DAILY [facility] Last Admin: 02/06/19 10:41 Dose: 2,000 unit Diltiazem HCl (Cardizem Cd -) 240 mg PO DAILY [facility] Last Admin: 02/06/19 10:42 Dose: 240 mg Dextrose/Sodium Chloride (D5-1/2ns -) 1,000 mls @ 60 mls/hr IV ASDIR [facility] Last Admin: 02/06/19 01:40 Dose: 60 mls/hr Piperacillin Sod/Tazobactam (Sod 3.375 gm/ Dextrose) 50 mls @ 100 mls/hr IVPB Q8H-IV HI; Protocol Piperacillin Sod/Tazobactam (Sod 3.375 gm/ Dextrose) 50 mls @ 100 mls/hr IVPB Q8H-IV HI; Protocol Stop: 02/07/19 10:29 Last Admin: 02/07/19 02:27 Dose: 100 mls/hr Loratadine (Claritin -) 10 mg PO DAILY PRN PRN Reason: NASAL CONGESTION Sertraline HCl (Zoloft -) 50 mg PO DAILY [facility] Last Admin: 02/06/19 10:41 Dose: 50 mg - Objective Vital Signs: Vital Signs Temperature 98 F 02/07/19 05:00 Pulse Rate 73 02/07/19 05:00 Respiratory Rate 20 02/07/19 05:00 Blood Pressure 97/57 L 02/07/19 05:00 O2 Sat by Pulse Oximetry (%) 97 02/06/19 21:00 Constitutional: Yes: Well Nourished, No Distress, Calm Eyes: Yes: WNL, Conjunctiva Clear HENT: Yes: WNL, Atraumatic, Normocephalic Neck: Yes: WNL, Supple, Trachea Midline Cardiovascular: Yes: WNL, Regular Rate and Rhythm, Murmur Respiratory: Yes: WNL, Regular, CTA Bilaterally Gastrointestinal: Yes: WNL, Normal Bowel Sounds ...Rectal Exam: Yes: Deferred Genitourinary: Yes: WNL Breast(s): Yes: WNL Musculoskeletal: Yes: WNL Extremities: Yes: WNL Edema: No Peripheral Pulses WNL: Yes Integumentary: Yes: WNL Neurological: Yes: WNL, Alert, Oriented ...Motor Strength: WNL Psychiatric: Yes: WNL Labs: CBC, BMP 02/07/19 05:40 02/07/19 05:40 INR, PTT INR 1.08 (0.83-1.09) 02/07/19 05:40 - ....Imaging MRI: Report Reviewed (MRCP/Abd) Problem List - Problems (1) Uterine cancer Code(s): C55 - MALIGNANT NEOPLASM OF UTERUS, PART UNSPECIFIED (2) Lung cancer Assessment/Plan: s/p lobectomy Code(s): C34.90 - MALIGNANT NEOPLASM OF UNSP PART OF UNSP BRONCHUS OR LUNG (3) CAD (coronary artery disease) Assessment/Plan: S/P PCIs >1 year ago No c/o chest pain, SOB. Trop neg x3 pain does not appear to be cardiac in nature appreciate cardiology consultation TTE ordered for am tele monitoring hold cardizem c/w asa when taking PO Code(s): I25.10 - ATHSCL HEART DISEASE OF [place] CORONARY ARTERY W/O ANG PCTRS (4) Elevated lipase Assessment/Plan: GI consultation appreciated MRI/MRCP results pending possible ERCP NPO trend lipase Code(s): R74.8 - ABNORMAL LEVELS OF OTHER SERUM ENZYMES (5) HTN (hypertension) Assessment/Plan: SBO 100-120's hold cardizem Code(s): I10 - ESSENTIAL (PRIMARY) HYPERTENSION (6) Diverticulitis Code(s): K57.92 - DVTRCLI OF INTEST, PART UNSP, W/O PERF OR ABSCESS W/O BLEED (7) Abdominal pain Assessment/Plan: pending further GI testing zofran prn NPO c/w zosyn appreciate ID consultation Code(s): R10.9 - UNSPECIFIED ABDOMINAL PAIN (8) HLD (hyperlipidemia) Assessment/Plan: c/w atrovastatin when no longer NPO Code(s): E78.5 - HYPERLIPIDEMIA, UNSPECIFIED (9) Prophylactic measure Assessment/Plan: FEN IVF NPO until after ERCP monitor electrolytes DVT heparin sq Dispo maintain as inpatient full code discharge planning Code(s): Z29.9 - ENCOUNTER FOR PROPHYLACTIC MEASURES, UNSPECIFIED (10) Systolic murmur Assessment/Plan: TTE ordered for am appreciate cardiology consultation Code(s): R01.1 - CARDIAC MURMUR, UNSPECIFIED Visit type - Emergency Visit Emergency Visit: Yes ED Registration Date: 02/06/19 Care time: The patient presented to the Emergency Department on the above date and was hospitalized for further evaluation of their emergent condition. - New Patient This patient is new to me today: Yes Date on this admission: 02/07/19 - Critical Care Critical Care patient: No - Discharge Referral Referred to [facility] Med P.C.: No
--- NOTE | 2019-02-07 10:09 | PN ---
Progress Note, Physician Chief Complaint: no CP or SOB TELE: NSR, rare single APCs GI input noted History of Present Illness: BP running low - Current Medication List Current Medications: Active Medications Aspirin (Ecotrin -) 81 mg PO DAILY [facility] Last Admin: 02/06/19 10:41 Dose: 81 mg Atorvastatin Calcium (Lipitor -) 10 mg PO HS [facility] Last Admin: 02/06/19 21:51 Dose: 10 mg Cholecalciferol (Vitamin D3 -) 2,000 unit PO DAILY [facility] Last Admin: 02/06/19 10:41 Dose: 2,000 unit Diltiazem HCl (Cardizem Cd -) 240 mg PO DAILY [facility] Last Admin: 02/06/19 10:42 Dose: 240 mg Dextrose/Sodium Chloride (D5-1/2ns -) 1,000 mls @ 60 mls/hr IV ASDIR [facility] Last Admin: 02/06/19 01:40 Dose: 60 mls/hr Piperacillin Sod/Tazobactam (Sod 3.375 gm/ Dextrose) 50 mls @ 100 mls/hr IVPB Q8H-IV HI; Protocol Piperacillin Sod/Tazobactam (Sod 3.375 gm/ Dextrose) 50 mls @ 100 mls/hr IVPB Q8H-IV HI; Protocol Stop: 02/07/19 10:29 Last Admin: 02/07/19 02:27 Dose: 100 mls/hr Loratadine (Claritin -) 10 mg PO DAILY PRN PRN Reason: NASAL CONGESTION Sertraline HCl (Zoloft -) 50 mg PO DAILY [facility] Last Admin: 02/06/19 10:41 Dose: 50 mg - Objective Vital Signs: Vital Signs Temperature 98.1 F 02/07/19 09:00 Pulse Rate 73 02/07/19 09:00 Respiratory Rate 20 02/07/19 09:00 Blood Pressure 101/55 L 02/07/19 09:00 O2 Sat by Pulse Oximetry (%) 97 02/07/19 09:00 Constitutional: Yes: No Distress, Calm Eyes: Yes: Conjunctiva Clear, EOM Intact Cardiovascular: Yes: Regular Rate and Rhythm Respiratory: Yes: CTA Bilaterally Gastrointestinal: Yes: Soft (no rebound or guarding.) Edema: No Neurological: Yes: Alert, Oriented ...Motor Strength: WNL Labs: CBC, BMP 02/07/19 05:40 02/07/19 05:40 INR, PTT INR 1.08 (0.83-1.09) 02/07/19 05:40 Laboratory Tests 02/05/19 02/07/19 18:45 05:40 AST 236 H ALT 306 H Alkaline Phosphatase 214 H Total Protein 6.2 L Albumin 3.2 L HDL Cholesterol 69 H Lipase 423 H - ....Imaging EKG: Image Reviewed Assessment/Plan Assessment/Plan IMP: 1. Epigastric pain with elevated lipase and hepatic ductal dilatation 2. Chest pain secondary to above, same process, with no evidence of ACS 3. CAD w/ prior PCIs (>1 year), systolic murmur 4. HTN 5. HLD 6. Hx Lung CA REC: 1.GI eval, MRCP; abx as per primary team and GI 2. Echo to eval murmur, suspect MR. Chronic valve disease may be the cause of the elevated BNP; clinically euvolemic. 3. BP running low this AM (90-100mmHg systolic). Hold Cardizem, continue tele. 4.No further cardiac w/u planned at this time beyond echo.
[2019-02-07] MEDS: DEXTROSE 5%-0.45% SALINE 1,000 ML IV SCH (11:01)
[2019-02-07] MEDS: SERTRALINE HCL 50 MG TABLET (FP) PO SCH (11:01)
[2019-02-07] MEDS: ASPIRIN COATED 81 MG TABLET.EC PO SCH (11:02)
[2019-02-07] MEDS: CHOLECALCIFEROL (VIT D3) 1,000 UNIT (25 MCG) TABLET PO SCH (11:02)
--- NOTE | 2019-02-07 16:20 | PN.GI ---
GI Progress Note Subjective: No acute events No abdominal pain MRI performed: No prelim report available for review in the [facility] system Cardiology has evaluated the patient and echo has been ordered for tomorrow morning - Objective Vital Signs: Vital Signs Temperature 98.1 F 02/07/19 09:00 Pulse Rate 73 02/07/19 09:00 Respiratory Rate 20 02/07/19 09:00 Blood Pressure 101/55 L 02/07/19 09:00 O2 Sat by Pulse Oximetry (%) 97 02/07/19 09:00 Constitutional: Calm Eyes: No: Sclera Icterus Cardiovascular: Yes: Regular Rate and Rhythm Respiratory: Yes: CTA Bilaterally Gastrointestinal Inspection: No: Distention ...Auscultate: Yes: Normoactive Bowel Sounds ...Palpate: No: Tenderness Edema: LLE: 1+, RLE: 1+ Neurological: Yes: Alert Labs: CBC, BMP 02/07/19 05:40 02/07/19 05:40 INR, PTT INR 1.08 (0.83-1.09) 02/07/19 05:40 Problem List - Problems (1) Chest pain Assessment/Plan: Atypical post-prandial chest pain associated with dyspeptic symptoms and elevated transaminases / ALP. Also with increased biliary ductal dilatation. Suspicion for biliary source of pain. Acuity of complaints points towards passage of / retained CBD stone / sludge. Discussed with Carson Romain and we discussed potential ERCP for further evaluation. Discussed potential risks of the procedure like but not limited to bleeding, perforation requiring surgery to repair, infection, sedation medication effects, Pancreatitis (5-10% of the cases) all of which could be potentiallly life threatening. She has agreed to the procedure if it was felt to be clinically indicated. For now: Await MRI/MRCP result Monitor liver chemistries Await echo result. Ordered for tomorrow morning by cardiologiy Clear liquid trial today. NPO after midnight except meds IV Abx Held aspirin for now Code(s): R07.9 - CHEST PAIN, UNSPECIFIED Qualifiers: Chest pain type: unspecified Qualified Code(s): R07.9 - Chest pain, unspecified
--- NOTE | 2019-02-07 17:54 | PN ---
Progress Note (short form) - Note Progress Note: ID CONSULT DICTATED R/O BILIARY SEPSIS AWAIT C/S CONTINUE EMPIRIC ZOSYN
[2019-02-07] MEDS: ATORVASTATIN CA 10 MG TABLET (FP) PO SCH (21:57)
--- NOTE | 2019-02-07 22:39 | CONS ---
DATE OF CONSULTATION: DATE OF DICTATION: 02/07/2019 The patient is an 78-year-old female who is evaluated for possible biliary sepsis, admitted to the hospital on for chest pain postprandial chest discomfort. She was admitted to the hospital, where initial workup revealed elevated liver enzymes. She underwent a CAT scan of the abdomen and pelvis, which showed increased extrahepatic and intrahepatic biliary tract dilatation. The patient is status post cholecystectomy. Concern was expressed over the possibility of biliary tract disease. She was admitted to the hospital and seen in consultation by GI and cardiology. Her hospital course was significant for continued abdominal discomfort. She denied any associated fever or chills. No complaints of nausea or vomiting. An MRCP was ordered and showed no evidence of choledocholithiasis. There was, however, increased extrahepatic and intrahepatic biliary tract dilatation, as seen on the CAT scan. Cultures were obtained and she was empirically treated with Zosyn. At the present time, she is awake and alert, she has no complaints of abdominal pain, denies any nausea or vomiting. No complaints of fever or chills. Past medical history positive for lung cancer, uterine cancer, coronary artery disease, gastroesophageal reflux, hypertension, hyperlipidemia, diverticulitis. PAST SURGICAL HISTORY: Status post coronary artery stent, cholecystectomy, and lung lobectomy. No known allergies. Medications at the present time include Lipitor, Cardizem, Claritin, Zoloft, Zosyn. SOCIAL HISTORY: Resides in the community. She is a former smoker. SYSTEMS REVIEW: Neurologic: No loss of consciousness, seizure activity, or focal weakness. Cardiac: As per HPI. Respiratory: Negative for cough or sputum production. Gastrointestinal: Negative vomiting or diarrhea. Genitourinary: Negative for urinary tract infection. LABORATORY DATA: White count 6.9, hematocrit 33.1, platelets 211. BUN 12, creatinine 0.5, total bilirubin 0.9, alkaline phosphatase 214, AST 236, ALT 306. PHYSICAL EXAMINATION: General: She is awake and alert, she is not acutely toxic appearing. Vital Signs: Temperature 98.1. Blood pressure 101/55. Pulse 73, regular. Respirations 20 per minute. Eyes: Sclerae anicteric. Heart Sounds: S1, S2. Lungs: Clear. Abdomen: Obese. No tenderness elicited. No epigastric or right upper quadrant tenderness. No rebound or rigidity. Extremities: Positive for edema. IMPRESSION: 1. Abdominal pain syndrome, elevated liver enzymes. Rule out biliary tract disease. 2. Rule out sepsis secondary to biliary tract source. Await culture results. Empiric coverage of biliary tract pathogens with Zosyn pending sepsis workup. Serial liver function tests. GI followup. TERESO GE M.D. [id number]
[2019-02-08] MEDS ORDERED: DEXTROSE 5%-WATER - 50 ML IVPB ONE ×2 (02:10→10:12)
[2019-02-08] MEDS ORDERED: PIPERACILLIN/TAZOBACTAM 3.375 GM VIAL IVPB ONE ×2 (02:10→10:12)
[2019-02-08] MEDS: PIPERACILLIN/TAZOB 3.375 GM 3.375 GM in DEXTROSE 5%-WATER - 50 ML IVPB SCH ×2 (02:28→10:16)
[2019-02-08] MEDS: DEXTROSE 5%-0.45% SALINE 1,000 ML IV SCH (02:34)
[2019-02-08 05:01] LABS: URINE APPEARANCE CLEAR; URINE BILIRUBIN NEGATIVE (NEGATIVE); URINE COLOR YELLOW; URINE GLUCOSE (UA) NEGATIVE (NEGATIVE); URINE KETONE NEGATIVE (NEGATIVE); URINE LEUK ESTERASE NEGATIVE (NEGATIVE); URINE NITRITE NEGATIVE (NEGATIVE); URINE PROTEIN NEGATIVE (NEGATIVE)
[2019-02-08 07:01] LABS: BASO % 0.3 % (0-2.0); EOS % 2.1 % (0-4.5); HEMATOCRIT 34.9 % (32.4-45.2); HEMOGLOBIN 11.4 GM/dL (10.7-15.3); LYMPH % 13.8 % (8-40); MCH 29.2 pg (25.7-33.7); MCHC 32.6 g/dl (32.0-36.0); MEAN CELL VOLUME 89.6 fl (80-96); MEAN PLT VOLUME 9.8 fl (7.5-11.1); MONO % 8.5 % (3.8-10.2); NEUT % 75.3 % (42.8-82.8); PLATELET COUNT 216 K/MM3 (134-434); RDW 14.5 % (11.6-15.6); WHITE BLOOD COUNT 8.1 K/mm3 (4.0-10.0)
[2019-02-08 07:19] LABS: ALBUMIN 3.4 g/dl (3.4-5.0); BILIRUBIN,TOTAL 0.8 mg/dL (0.2-1); BLOOD UREA NITROGEN 8.5 mg/dL (7-18); CALCIUM 9.6 mg/dL (8.5-10.1); CREATININE 0.5 mg/dL (0.55-1.3); POTASSIUM 3.9 mmol/L (3.5-5.1); TOT PROT 6.4 g/dl (6.4-8.2)
--- NOTE | 2019-02-08 07:53 | PN ---
Progress Note, Physician Chief Complaint: Pt sitting at edge of bed with no complaint offered History of Present Illness: This is a 78 y/o woman with a PMhx of HTN, HLD, CAD s/p Stents x2, GERD, Diverticulitis, Uterine Ca, Lung Ca s/p Lobectomy (remission). Who presents to the [place] ED with chest pain. The patient states she was watering the plants when she had a sudden onset of anterior mid sternal chest pain that radiated to the left side. She reports associated symptoms of flatulence and diarrhea (began a few days ago), mild relief with an Immodium. Patient reports the pain is alleviated when sitting up and reports no prior episodes of chest pain in the past. She states chest pain has decreased upon arrival to the ER. The patient denies shortness of breath, headache and dizziness. Denies fever, chills, nausea, vomit, and constipation. Denies dysuria, frequency,urgency and hematuria. - Current Medication List Current Medications: Active Medications Atorvastatin Calcium (Lipitor -) 10 mg PO HS [facility] Last Admin: 02/07/19 21:57 Dose: 10 mg Cholecalciferol (Vitamin D3 -) 2,000 unit PO DAILY [facility] Last Admin: 02/07/19 11:02 Dose: 2,000 unit Diltiazem HCl (Cardizem Cd -) 240 mg PO DAILY [facility] Last Admin: 02/07/19 11:02 Dose: Not Given Dextrose/Sodium Chloride (D5-1/2ns -) 1,000 mls @ 60 mls/hr IV ASDIR [facility] Last Admin: 02/08/19 02:34 Dose: 60 mls/hr Piperacillin Sod/Tazobactam (Sod 3.375 gm/ Dextrose) 50 mls @ 100 mls/hr IVPB Q8H-IV HI; Protocol Last Admin: 02/08/19 02:28 Dose: 100 mls/hr Loratadine (Claritin -) 10 mg PO DAILY PRN PRN Reason: NASAL CONGESTION Sertraline HCl (Zoloft -) 50 mg PO DAILY [facility] Last Admin: 02/07/19 11:01 Dose: 50 mg - Objective Vital Signs: Vital Signs Temperature 99.2 F 02/08/19 04:47 Pulse Rate 98 H 02/08/19 04:47 Respiratory Rate 20 09/16/19 04:47 Blood Pressure 132/61 09/16/19 04:47 O2 Sat by Pulse Oximetry (%) 97 02/07/19 21:00 Constitutional: Yes: Well Nourished, No Distress, Calm Eyes: Yes: WNL, Conjunctiva Clear HENT: Yes: WNL, Atraumatic, Normocephalic Neck: Yes: WNL, Supple, Trachea Midline Cardiovascular: Yes: WNL, Regular Rate and Rhythm, Murmur (systolic) Respiratory: Yes: WNL, Regular, CTA Bilaterally Gastrointestinal: Yes: WNL, Normal Bowel Sounds ...Rectal Exam: Yes: Deferred Genitourinary: Yes: WNL Breast(s): Yes: WNL Musculoskeletal: Yes: WNL (BL knees), Joint Stiffness Edema: No Peripheral Pulses WNL: Yes Integumentary: Yes: WNL Neurological: Yes: WNL, Alert, Oriented ...Motor Strength: WNL Psychiatric: Yes: WNL Labs: CBC, BMP 02/08/19 06:00 02/08/19 06:00 INR, PTT INR 1.08 (0.83-1.09) 02/07/19 05:40 - ....Imaging MRI: Report Reviewed (No MRCP evidenc e of choleducolitsiasis) Problem List - Problems (1) Uterine cancer Code(s): C55 - MALIGNANT NEOPLASM OF UTERUS, PART UNSPECIFIED (2) Lung cancer Assessment/Plan: s/p lobectomy Code(s): C34.90 - MALIGNANT NEOPLASM OF UNSP PART OF UNSP BRONCHUS OR LUNG (3) CAD (coronary artery disease) Assessment/Plan: S/P PCIs >1 year ago No c/o chest pain, SOB. Trop neg x3 pain does not appear to be cardiac in nature appreciate cardiology consultation tele monitoring hold cardizem c/w asa when taking PO TTE resulted: EF 65-700%, mod to severe MR/TR ST ordered for AM Code(s): I25.10 - ATHSCL HEART DISEASE OF [place] CORONARY ARTERY W/O ANG PCTRS (4) Elevated lipase Assessment/Plan: GI consultation appreciated MRCP negative possible ERCP NPO trend lipase, 363 Code(s): R74.8 - ABNORMAL LEVELS OF OTHER SERUM ENZYMES (5) HTN (hypertension) Assessment/Plan: SBO 100-120's hold cardizem Code(s): I10 - ESSENTIAL (PRIMARY) HYPERTENSION (6) Diverticulitis Code(s): K57.92 - DVTRCLI OF INTEST, PART UNSP, W/O PERF OR ABSCESS W/O BLEED (7) Abdominal pain Assessment/Plan: resolved zofran prn resume diet and then NPO after MN for ST c/w zosyn appreciate ID consultation Code(s): R10.9 - UNSPECIFIED ABDOMINAL PAIN (8) HLD (hyperlipidemia) Assessment/Plan: c/w atrovastatin when no longer NPO Code(s): E78.5 - HYPERLIPIDEMIA, UNSPECIFIED (9) Prophylactic measure Assessment/Plan: FEN IVF NPO after MN for ST monitor electrolytes DVT heparin sq Dispo maintain as inpatient full code discharge planning Code(s): Z29.9 - ENCOUNTER FOR PROPHYLACTIC MEASURES, UNSPECIFIED (10) Systolic murmur Assessment/Plan: TTE resulted: EF 65-700%, mod to severe MR/TR ST ordered for AM appreciate cardiology consultation Code(s): R01.1 - CARDIAC MURMUR, UNSPECIFIED Visit type - Emergency Visit Emergency Visit: Yes ED Registration Date: 02/06/19 Care time: The patient presented to the Emergency Department on the above date and was hospitalized for further evaluation of their emergent condition. - New Patient This patient is new to me today: No - Critical Care Critical Care patient: No - Discharge Referral Referred to [facility] Med P.C.: No
[2019-02-08] MEDS ORDERED: LIDOCAINE 5% TOPICAL PATCH TP ONE ×2 (08:59)
--- NOTE | 2019-02-08 09:11 | PN ---
Progress Note, Physician Chief Complaint: cp History of Present Illness: pt denies abd pain at any time to me. states she went to ER due to L shoulder pain radiating to sternum--similar to prior UA pain no more cp since admit denies sob including at time of cp episode no palp, diaph - Current Medication List Current Medications: Active Medications Atorvastatin Calcium (Lipitor -) 10 mg PO HS [facility] Last Admin: 02/07/19 21:57 Dose: 10 mg Cholecalciferol (Vitamin D3 -) 2,000 unit PO DAILY HI Last Admin: 02/07/19 11:02 Dose: 2,000 unit Diltiazem HCl (Cardizem Cd -) 240 mg PO DAILY [facility] Last Admin: 02/07/19 11:02 Dose: Not Given Dextrose/Sodium Chloride (D5-1/2ns -) 1,000 mls @ 60 mls/hr IV ASDIR HI Last Admin: 02/08/19 02:34 Dose: 60 mls/hr Piperacillin Sod/Tazobactam (Sod 3.375 gm/ Dextrose) 50 mls @ 100 mls/hr IVPB Q8H-IV HI; Protocol Last Admin: 02/08/19 02:28 Dose: 100 mls/hr Lidocaine (Lidoderm Patch -) 1 patch TP DAILY [facility] Lidocaine (Lidoderm Patch -) 1 patch TP DAILY ONE Stop: 02/08/19 09:00 Loratadine (Claritin -) 10 mg PO DAILY PRN PRN Reason: NASAL CONGESTION Miscellaneous (Lidoderm Patch Removal) 1 each MC ONCE@2200 ONE Stop: 02/08/19 22:01 Miscellaneous (Lidoderm Patch Removal) 1 each MC DAILY@2200 [facility] Sertraline HCl (Zoloft -) 50 mg PO DAILY [facility] Last Admin: 02/07/19 11:01 Dose: 50 mg - Objective Vital Signs: Vital Signs Temperature 99.2 F 02/08/19 04:47 Pulse Rate 98 H 02/08/19 04:47 Respiratory Rate 18 02/08/19 08:05 Blood Pressure 132/61 02/08/19 04:47 O2 Sat by Pulse Oximetry (%) 96 02/08/19 08:05 Constitutional: Yes: Well Nourished, No Distress, Calm Cardiovascular: Yes: Regular Rate and Rhythm, JVD, Murmur (HSM apex), S1, S2. No: Gallop Respiratory: Yes: Regular, CTA Bilaterally. No: Accessory Muscle Use, Rales, Wheezes Extremities: No: Cold Edema: No Neurological: Yes: Alert, Oriented Psychiatric: No: Agitated Labs: CBC, BMP 02/08/19 06:00 02/08/19 06:00 INR, PTT INR 1.08 (0.83-1.09) 02/07/19 05:40 Assessment/Plan tele: NSR IMP: -Epigastric pain with elevated lipase and hepatic ductal dilatation. MRCP no stones, biliary duct and pancreatic duct dilatation -Chest pain, similar to prior angina sx's (remote). no isch ECG changes, trop neg x 3 -CAD w/ prior PCIs (remote) -[id number] MR (chronic, normal LV size/fxn on serial echoes), + JVD on exam though no sob, lungs clear on CXR -HTN -HLD -Hx Lung CA -arthritis REC: -rec pharm MPI -GI followup--hold aspirin until clear there are no invasive procedures planned -follow up echo (note known history of significant MR as above) -BP running low this AM (90-100mmHg systolic)--held Cardizem
[2019-02-08] MEDS: CHOLECALCIFEROL (VIT D3) 1,000 UNIT (25 MCG) TABLET PO SCH (10:16)
[2019-02-08] MEDS: SERTRALINE HCL 50 MG TABLET (FP) PO SCH (10:16)
[2019-02-08] MEDS: LIDOCAINE 5% TOPICAL PATCH TP SCH (12:40)
--- NOTE | 2019-02-08 13:18 | PN ---
Progress Note (short form) - Note Progress Note: GI f/u Patient seen and examined Labs reviewed Patient feels well. No chset discomfort or abdominal sx Vital Signs Temp 99 F 02/08/19 10:00 Pulse 95 H 02/08/19 10:00 Resp 18 02/08/19 10:00 BP 137/64 02/08/19 10:00 Pulse Ox 96 02/08/19 08:05 NAD Anicteric abd soft NT ND CBC, BMP 02/08/19 06:00 02/08/19 06:00 Hepatic Panel Total Bilirubin 0.8 mg/dL (0.2-1) 02/08/19 06:00 Direct Bilirubin 0.5 mg/dL (0.0-0.2) H 02/06/19 06:04 AST 100 U/L (15-37) H 02/08/19 06:00 ALT 205 U/L (13-61) H 02/08/19 06:00 Alkaline Phosphatase 200 U/L (45-117) H 02/08/19 06:00 Albumin 3.4 g/dl (3.4-5.0) 02/08/19 06:00 MRCP report reviewed, dilated CBD and PD, small pancreatic cysts, no biliary obstruction identified. Impression: seems likely to have been a passed stone. - continue to trend LFTs until they normalize - will stop abx - resume diet
--- NOTE | 2019-02-08 15:27 | ECHO ---
Name: YAZMIN MCKEON Exam:Adult Echocardiogram Study Date: 02/08/2019 02:16 PM Age: 78 yrs Reason For Study: systolic murmur Height: 62 in Weight: 164 lb BSA: 1.8 m2 MMode/2D Measurements & Calculations IVSd: 0.99 cm Ao root diam: 3.2 cm LVIDd: 5.6 cm LA dimension: 4.2 cm LVIDs: 3.4 cm ACS: 1.4 cm LVPWd: 1.2 cm IVSs: 1.1 cm LVPWs: 1.6 cm EDV(Teich): 154.4 ml ESV(Teich): 46.4 ml LVOT diam: 1.8 cm Doppler Measurements & Calculations MV E max rodo: 114.0 cm/sec Ao V2 max: 184.6 cm/sec MV A max rodo: 123.4 cm/sec Ao max P.6 mmHg MV E/A: 0.92 Ao V2 mean: 120.2 cm/sec Ao mean P.8 mmHg Ao V2 VTI: 29.6 cm JAYRO(I,D): 1.7 cm2 JAYRO(V,D): 1.5 cm2 LV V1 max P.0 mmHg MR max rodo: 592.9 cm/sec LV V1 mean P.2 mmHg MR max P.7 mmHg LV V1 max: 111.9 cm/sec LV V1 mean: 69.3 cm/sec LV V1 VTI: 19.3 cm SV(LVOT): 49.3 ml TR max rodo: 281.4 cm/sec TR max P.8 mmHg Med Peak E' Rodo: 5.5 cm/sec Med E/e': 20.8 Lat Peak E' Rodo: 8.8 cm/sec Lat E/e': 13.0 Procedure A complete two-dimensional transthoracic echocardiogram was performed (2D, M-mode, Doppler and color flow Doppler). Left Ventricle The left ventricle is normal in size. Left ventricular systolic function is normal. Ejection Fraction = 65- 70%. No regional wall motion abnormalities noted. Right Ventricle The right ventricle is normal size. The right ventricular systolic function is normal. Atria The left atrium is mildly dilated. The right atrium is mildly dilated. Mitral Valve There is moderate to severe mitral annular calcification. There is moderate to severe mitral regurgit ation. Tricuspid Valve The tricuspid valve is normal in structure and function. There is moderate to severe tricuspid regurg itation. Pulmonary artery systolic pressure is at least 39 mmHg if RA pressure is assumed 3 mmHg. Aortic Valve There is mild to moderate aortic sclerosis.;. No aortic regurgitation is present. Pulmonic Valve The pulmonic valve is not well visualized. Great Vessels The aortic root is normal size. Pericardium/Pleura There is no pericardial effusion. Interpretation Summary The left ventricle is normal in size. Left ventricular systolic function is normal. No regional wall motion abnormalities noted. Ejection Fraction = 65-70%. The right ventricular systolic function is normal. The left atrium is mildly dilated. There is moderate to severe mitral annular calcification. There is moderate to severe mitral regurgitation. There is moderate to severe tricuspid regurgitation. Pulmonary artery systolic pressure is at least 39 mmHg if RA pressure is assumed 3 mmHg There is mild to moderate aortic sclerosis. There is no pericardial effusion. Sanford Ocampo MD 02/08/2019 03:27 PM
[2019-02-08] MEDS ORDERED: ACETAMINOPHEN 325 MG TABLET (FP) PO PRN (15:32)
[2019-02-08] MEDS: LIDOCAINE PATCH REMOVAL MC SCH (21:58)
[2019-02-08] MEDS: ATORVASTATIN CA 10 MG TABLET (FP) PO SCH (21:58)
[2019-02-08] MEDS ORDERED: LIDOCAINE PATCH REMOVAL MC ONE (22:00)
[2019-02-09] MEDS: DEXTROSE 5%-0.45% SALINE 1,000 ML IV SCH (01:07)
[2019-02-09] MEDS ORDERED: PT OWN MED DRAWER 7, Y5N ONE (08:16)
[2019-02-09] MEDS ORDERED: REGADENOSON 0.4 MG/5 ML PRE-FILLED SYRINGE IVPUSH ONE ×2 (08:59→09:15)
--- NOTE | 2019-02-09 12:10 | PN ---
Progress Note (short form) - Note Progress Note: s: no chest pain, palps, dizziness, dyspnea, arm pain. feels at baseline. Current Medications Acetaminophen (Tylenol -) 650 mg PO Q6H PRN PRN Reason: Fever Or Pain Last Admin: 02/08/19 16:00 Dose: 650 mg Atorvastatin Calcium (Lipitor -) 10 mg PO HS COUNTS INCLUDE 234 BEDS AT THE [facility] Last Admin: 02/08/19 21:58 Dose: 10 mg Cholecalciferol (Vitamin D3 -) 2,000 unit PO DAILY COUNTS INCLUDE 234 BEDS AT THE [facility] Last Admin: 02/08/19 10:16 Dose: 2,000 unit Diltiazem HCl (Cardizem Cd -) 240 mg PO DAILY COUNTS [facility]CLUDE 234 BEDS AT THE [facility] Last Admin: 02/07/19 11:02 Dose: Not Given Dextrose/Sodium Chloride (D5-1/2ns -) 1,000 mls @ 60 mls/hr IV ASDIR COUNTS INCLUDE 234 BEDS AT THE [facility] Last Admin: 02/09/19 01:07 Dose: 60 mls/hr Lidocaine (Lidoderm Patch -) 1 patch TP DAILY COUNTS [facility]CLUDE 234 BEDS AT THE [facility] Last Admin: 02/08/19 12:40 Dose: 1 patch Loratadine (Claritin -) 10 mg PO DAILY PRN PRN Reason: NASAL CONGESTION Miscellaneous (Lidoderm Patch Removal) 1 each MC DAILY@2200 COUNTS [facility]CLUDE 234 BEDS AT THE [facility] Last Admin: 02/08/19 21:58 Dose: 1 each Sertraline HCl (Zoloft -) 50 mg PO DAILY COUNTS INCLUDE 234 BEDS AT THE [facility] Last Admin: 02/08/19 10:16 Dose: 50 mg Vital Signs Period Temp Pulse Resp BP Sys/Santa Pulse Ox Last 24 Hr 98.4 F-100.1 F 90-97 20-20 108-139/58-87 98-98 Constitutional: Yes: Well Nourished, No Distress, Calm Cardiovascular: Yes: Regular Rate and Rhythm, JVD, Murmur (HSM apex), S1, S2. No: Gallop Respiratory: Yes: Regular, CTA Bilaterally. No: Accessory Muscle Use, Rales, Wheezes Extremities: No: Cold Edema: No Neurological: Yes: Alert, Oriented Psychiatric: No: Agitated no jaundice, diaphoresis Assessment/Plan tele: OREN echo 01/2019 nl LV/RV function, LA mildly dilated, mod to severe MAC, mod to severe MR, mod to severe TR, PASP at least 39 mmHg IMP: -Epigastric pain with elevated lipase and hepatic ductal dilatation. MRCP no stones, biliary duct and pancreatic duct dilatation -Chest pain, similar to prior angina sx's (remote). no isch ECG changes, trop neg x 3 -CAD w/ prior PCIs (remote) -[id number] MR (chronic, normal LV size/fxn on serial echoes), + JVD on exam though no sob, lungs clear on CXR -HTN -HLD -Hx Lung CA -arthritis REC: -pharm MPI done this AM - pending -GI followup- restart aspirin if no procedures are planned -follow up echo shows moderate to severe MR with nl LV function - outpatient follow up -BP stable, cardizem was held. monitor BP
[2019-02-09 12:23] LABS: BASO % 0.7 % (0-2.0); EOS % 0.4 % (0-4.5); HEMATOCRIT 34.5 % (32.4-45.2); HEMOGLOBIN 11.3 GM/dL (10.7-15.3); LYMPH % 15.6 % (8-40); MCH 29.4 pg (25.7-33.7); MCHC 32.8 g/dl (32.0-36.0); MEAN CELL VOLUME 89.8 fl (80-96); MEAN PLT VOLUME 9.7 fl (7.5-11.1); MONO % 7.4 % (3.8-10.2); NEUT % 75.9 % (42.8-82.8); PLATELET COUNT 222 K/MM3 (134-434); RBC 3.84 M/mm3 (3.60-5.2); RDW 14.6 % (11.6-15.6); WHITE BLOOD COUNT 8.7 K/mm3 (4.0-10.0)
[2019-02-09] MEDS: LIDOCAINE 5% TOPICAL PATCH TP SCH (12:44)
[2019-02-09] MEDS: CHOLECALCIFEROL (VIT D3) 1,000 UNIT (25 MCG) TABLET PO SCH (12:44)
[2019-02-09] MEDS: SERTRALINE HCL 50 MG TABLET (FP) PO SCH (12:45)
[2019-02-09 12:57] LABS: ALBUMIN 3.5 g/dl (3.4-5.0); BILIRUBIN,TOTAL 0.7 mg/dL (0.2-1); BLOOD UREA NITROGEN 12.2 mg/dL (7-18); CREATININE 0.5 mg/dL (0.55-1.3); MAGNESIUM 1.9 mg/dL (1.8-2.4)
--- NOTE | 2019-02-09 13:37 | PN ---
Progress Note, Physician Chief Complaint: denies any pain, denies nausea or vomiting. reports eating better today. History of Present Illness: Patient is a 78 y/o woman with a PMhx of HTN, HLD, CAD s/p Stents x 2, GERD, Diverticulitis, Uterine Ca, Lung Ca s/p Lobectomy (remission). Who presents to the [place] ED with chest pain. The patient states she was watering the plants when she had a sudden onset of anterior mid sternal chest pain that radiated to the left side. She reports associated symptoms of flatulence and diarrhea (began a few days ago), mild relief with an Immodium. Patient reports the pain is alleviated when sitting up and reports no prior episodes of chest pain in the past. She is s/p stress test and her results are pending. She is comfortable at rest and tolerating room air. - Current Medication List Current Medications: Active Medications Acetaminophen (Tylenol -) 650 mg PO Q6H PRN PRN Reason: Fever Or Pain Last Admin: 02/08/19 16:00 Dose: 650 mg Atorvastatin Calcium (Lipitor -) 10 mg PO HS [facility] Last Admin: 02/08/19 21:58 Dose: 10 mg Cholecalciferol (Vitamin D3 -) 2,000 unit PO DAILY [facility] Last Admin: 02/09/19 12:44 Dose: 2,000 unit Diltiazem HCl (Cardizem Cd -) 240 mg PO DAILY [facility] Last Admin: 02/07/19 11:02 Dose: Not Given Lidocaine (Lidoderm Patch -) 1 patch TP DAILY [facility] Last Admin: 02/09/19 12:44 Dose: 1 patch Loratadine (Claritin -) 10 mg PO DAILY PRN PRN Reason: NASAL CONGESTION Miscellaneous (Lidoderm Patch Removal) 1 each MC DAILY@2200 [facility] Last Admin: 02/08/19 21:58 Dose: 1 each Sertraline HCl (Zoloft -) 50 mg PO DAILY [facility] Last Admin: 02/09/19 12:45 Dose: 50 mg - Objective Vital Signs: Vital Signs Temperature 99.0 F 02/09/19 06:00 Pulse Rate 94 H 02/09/19 06:00 Respiratory Rate 20 02/09/19 09:00 Blood Pressure 131/67 02/09/19 06:00 O2 Sat by Pulse Oximetry (%) 98 02/09/19 09:00 Constitutional: Yes: Well Nourished, No Distress Eyes: Yes: WNL HENT: Yes: Atraumatic Neck: Yes: Supple Cardiovascular: Yes: Regular Rate and Rhythm Respiratory: Yes: Regular, CTA Bilaterally Gastrointestinal: Yes: Normal Bowel Sounds ...Rectal Exam: Yes: Deferred Musculoskeletal: Yes: WNL Extremities: Yes: WNL Edema: Yes Edema: LLE: Trace, RLE: Trace Peripheral Pulses WNL: Yes Integumentary: Yes: WNL Neurological: Yes: Alert, Oriented Psychiatric: Yes: Alert, Oriented Labs: CBC, BMP 02/09/19 11:55 02/09/19 11:55 INR, PTT INR 1.08 (0.83-1.09) 02/07/19 05:40 Problem List - Problems (1) Chest pain Assessment/Plan: chest pain resolved troponins negative Code(s): R07.9 - CHEST PAIN, UNSPECIFIED Qualifiers: Chest pain type: unspecified Qualified Code(s): R07.9 - Chest pain, unspecified (2) Abdominal pain Assessment/Plan: resolved. tolerating diet. Code(s): R10.9 - UNSPECIFIED ABDOMINAL PAIN (3) CAD (coronary artery disease) Assessment/Plan: S/P PCIs >1 year ago No c/o chest pain, SOB. Trop neg x3 appreciate cardiology consultation tele monitoring hold cardizem c/w asa when taking PO TTE resulted: EF 65-700%, mod to severe MR/TR ST pending. Code(s): I25.10 - ATHSCL HEART DISEASE OF [place] CORONARY ARTERY W/O ANG PCTRS (4) HLD (hyperlipidemia) Assessment/Plan: on statin therapy Code(s): E78.5 - HYPERLIPIDEMIA, UNSPECIFIED (5) HTN (hypertension) Assessment/Plan: monitor bp. restart cardizem per cardiology. Code(s): I10 - ESSENTIAL (PRIMARY) HYPERTENSION (6) Systolic murmur Assessment/Plan: TTE resulted: EF 65-700%, mod to severe MR/TR stress test done and pending appreciate cardiology consultation Code(s): R01.1 - CARDIAC MURMUR, UNSPECIFIED (7) Elevated LFTs Assessment/Plan: trending down. no abdominal pain will need outpatient follow up. Code(s): R94.5 - ABNORMAL RESULTS OF LIVER FUNCTION STUDIES (8) Prophylactic measure Assessment/Plan: low salt diet monitor electrolytes SCDs Dispo maintain as inpatient full code Code(s): Z29.9 - ENCOUNTER FOR PROPHYLACTIC MEASURES, UNSPECIFIED Visit type - Emergency Visit Emergency Visit: Yes ED Registration Date: 02/06/19 Care time: The patient presented to the Emergency Department on the above date and was hospitalized for further evaluation of their emergent condition. - New Patient This patient is new to me today: Yes Date on this admission: 02/09/19 - Critical Care Critical Care patient: No - Discharge Referral Referred to [facility] Med P.C.: No
--- NOTE | 2019-02-09 14:50 | PN.GI ---
GI Progress Note Subjective: No acute events No abdominal pain Tolerating PO - Objective Vital Signs: Vital Signs Temperature 99.0 F 02/09/19 06:00 Pulse Rate 94 H 02/09/19 06:00 Respiratory Rate 20 02/09/19 09:00 Blood Pressure 131/67 02/09/19 06:00 O2 Sat by Pulse Oximetry (%) 98 02/09/19 09:00 Constitutional: Calm Eyes: No: Sclera Icterus Cardiovascular: Yes: Regular Rate and Rhythm Respiratory: Yes: CTA Bilaterally Gastrointestinal Inspection: No: Distention ...Auscultate: Yes: Normoactive Bowel Sounds ...Palpate: Yes: Soft. No: Tenderness Edema: No (No LE edema) Labs: CBC, BMP 02/09/19 11:55 02/09/19 11:55 INR, PTT INR 1.08 (0.83-1.09) 02/07/19 05:40 Problem List - Problems (1) Chest pain Assessment/Plan: Abnl LFTs: Suspected passed CBD stone. LFTs continue to normalize If continued clinical improvement, OK with D/C home and will plan for referral for outpatient EUS If recurrent episodes of abdominal pain with rise in LFTs, will need ERCP to assess biliary tract I discontinued acetaminophen Code(s): R07.9 - CHEST PAIN, UNSPECIFIED Qualifiers: Chest pain type: unspecified Qualified Code(s): R07.9 - Chest pain, unspecified
[2019-02-09] MEDS: LIDOCAINE PATCH REMOVAL MC SCH (22:39)
[2019-02-09] MEDS: ATORVASTATIN CA 10 MG TABLET (FP) PO SCH (22:39)
[2019-02-10 08:05] LABS: BASO % 0.4 % (0-2.0); EOS % 1.4 % (0-4.5); HEMATOCRIT 32.8 % (32.4-45.2); HEMOGLOBIN 10.8 GM/dL (10.7-15.3); LYMPH % 14.1 % (8-40); MCH 29.7 pg (25.7-33.7); MEAN PLT VOLUME 9.9 fl (7.5-11.1); MONO % 9.4 % (3.8-10.2); NEUT % 74.7 % (42.8-82.8); PLATELET COUNT 209 K/MM3 (134-434); RBC 3.65 M/mm3 (3.60-5.2); RDW 14.4 % (11.6-15.6); WHITE BLOOD COUNT 8.6 K/mm3 (4.0-10.0)
[2019-02-10 09:02] LABS: BILIRUBIN,TOTAL 0.6 mg/dL (0.2-1); BLOOD UREA NITROGEN 16.7 mg/dL (7-18); CALCIUM 9.5 mg/dL (8.5-10.1); CREATININE 0.4 mg/dL (0.55-1.3); MAGNESIUM 1.9 mg/dL (1.8-2.4); POTASSIUM 4.5 mmol/L (3.5-5.1); TOT PROT 6.2 g/dl (6.4-8.2)
--- NOTE | 2019-02-10 09:37 | PN.GI ---
GI Progress Note Subjective: Pt seen/examined, feeling well, tolerating regular diet. Denies chest or abdominal pain. Denies n/v. - Objective Vital Signs: Vital Signs Temperature 98 F 02/10/19 08:40 Pulse Rate 102 H 02/10/19 08:40 Respiratory Rate 18 02/10/19 08:40 Blood Pressure 98/58 L 02/10/19 08:40 O2 Sat by Pulse Oximetry (%) 97 02/09/19 21:00 Constitutional: Well Nourished, No Distress, Calm Cardiovascular: Yes: WNL, Regular Rate and Rhythm Respiratory: Yes: WNL, Regular, CTA Bilaterally ...Palpate: Yes: Other (Abd soft, nt, nd) Labs: CBC, BMP 02/10/19 06:49 02/10/19 06:49 INR, PTT INR 1.08 (0.83-1.09) 02/07/19 05:40 Problem List - Problems (1) Elevated LFTs Assessment/Plan: 78yo female h/o CAD s/p PCI presenting with atypical lower chest pain with elevated LFTs. MRCP revealing dilated CBD and PD, small pancreatic cysts, no CBD stones seen. LFTs downtrending. Possibly passed stone. -Continue to monitor LFT trend to ensure normalization -Diet as tolerated -DC planning per primary team. Recommend outpatient GI follow up. Code(s): R94.5 - ABNORMAL RESULTS OF LIVER FUNCTION STUDIES
[2019-02-10] MEDS: LIDOCAINE 5% TOPICAL PATCH TP SCH (09:47)
[2019-02-10] MEDS: CHOLECALCIFEROL (VIT D3) 1,000 UNIT (25 MCG) TABLET PO SCH (09:47)
[2019-02-10] MEDS: SERTRALINE HCL 50 MG TABLET (FP) PO SCH (09:47)
[2019-02-10] MEDS ORDERED: LIDOCAINE 5% TOPICAL PATCH TP SCH (11:30)
--- NOTE | 2019-02-10 15:05 | DS ---
Physical Exam: SUBJECTIVE: Patient seen and examined at the bedside. denies pain, denies any malaise verbalized understanding that she should have her liver enzymes monitored closely with her PCP and see a GI specialist. She agrees to follow up with cardiology also. OBJECTIVE: Vital Signs Period Temp Pulse Resp BP Sys/Santa Pulse Ox Last 24 Hr 98 F-99.1 F 93-110 18-20 90-119/58-73 97-97 PHYSICAL EXAM GENERAL: The patient is awake, alert, and fully oriented, in no acute distress. HEAD: Normal with no signs of trauma. EYES: PERRL, extraocular movements intact, sclera anicteric, conjunctiva clear. ENT: Ears normal, nares patent, oropharynx clear without exudates, moist mucous membranes. NECK: Trachea midline, full range of motion, supple. LUNGS: Breath sounds equal, clear to auscultation bilaterally, no wheezes, no crackles, no accessory muscle use. HEART: Regular rate and rhythm ABDOMEN: Soft, nontender, nondistended, normoactive bowel sounds, no guarding, no rebound, no hepatosplenomegaly, no masses. EXTREMITIES: no edema. NEUROLOGICAL: Normal speech, gait not observed. PSYCH: Normal mood, normal affect. SKIN: Warm, dry, normal turgor, no rashes or lesions noted. LABS Laboratory Results - last 24 hr 02/10/19 02/10/19 06:49 06:49 WBC 8.6 RBC 3.65 Hgb 10.8 Hct 32.8 MCV 90.0 MCH 29.7 MCHC 33.0 RDW 14.4 Plt Count 209 MPV 9.9 Absolute Neuts (auto) 6.5 Neutrophils % 74.7 Lymphocytes % 14.1 Monocytes % 9.4 Eosinophils % 1.4 D Basophils % 0.4 Nucleated RBC % 0 Sodium 141 Potassium 4.5 Chloride 104 Carbon Dioxide 31 Anion Gap 5 L BUN 16.7 Creatinine 0.4 L Est GFR (CKD-EPI)AfAm 114.01 Est GFR (CKD-EPI)NonAf 98.37 Random Glucose 93 Calcium 9.5 Magnesium 1.9 Total Bilirubin 0.6 AST 28 ALT 87 H Alkaline Phosphatase 136 H Total Protein 6.2 L Albumin 3.0 L HOSPITAL COURSE: Date of Admission:02/06/19 Date of Discharge: 02/10/19 Minutes to complete discharge: 60 Discharge Summary Reason For Visit: CHEST PAIN Current Active Problems Abdominal pain (Acute) CAD (coronary artery disease) (Acute) Chest pain (Acute) Elevated LFTs (Acute) Elevated lipase (Acute) HLD (hyperlipidemia) (Acute) HTN (hypertension) (Acute) Lung cancer (Acute) Prophylactic measure (Acute) Systolic murmur (Acute) Uterine cancer (Acute) Condition: Good - Instructions Diet, Activity, Other Instructions: Please follow up with Dr. Colindres for a repeat liver enzymes next week. You have been referred to gastroentrology as your MRCP revealed dilated common bile duct. and small pancreatic cysts. Please follow up with cardiology. Thank you for allowing us to care for you Referrals: George Colindres MD [Primary Care Provider] - Marco Rendon MD [Staff Physician] - Chaitanya Prieto MD [Staff Physician] - Disposition: HOME - Home Medications Comprehensive Discharge Medication List: Ambulatory Orders Aspirin [Aspir-Low] 81 mg PO DAILY 12/06/13 Acetaminophen [Tylenol .Extra-Strength -] 1,000 mg PO Q8H PRN 04/26/18 Atorvastatin Ca [Lipitor] 10 mg PO HS 04/26/18 Cholecalciferol (Vitamin D3) [Vitamin D3] 2,000 unit PO DAILY 04/26/18 Loratadine [Claritin] 10 mg PO DAILY PRN 04/26/18 Sertraline HCl [Zoloft -] 50 mg PO DAILY 04/26/18 Diltiazem Cd [Cardizem Cd -] 240 mg PO DAILY cap.cd.24h 02/10/19 Problem List - Problems (1) Chest pain Assessment/Plan: chest pain resolved troponins negative Code(s): R07.9 - CHEST PAIN, UNSPECIFIED Qualifiers: Chest pain type: unspecified Qualified Code(s): R07.9 - Chest pain, unspecified (2) Abdominal pain Assessment/Plan: resolved. tolerating diet. Code(s): R10.9 - UNSPECIFIED ABDOMINAL PAIN (3) CAD (coronary artery disease) Assessment/Plan: S/P PCIs >1 year ago No c/o chest pain, SOB. Trop neg x3 appreciate cardiology consultation tele monitoring hold cardizem c/w asa when taking PO TTE resulted: EF 65-700%, mod to severe MR/TR ST shows mild areas of ischemia, cardiology consulted and cleared for d/c. outpatient cardiology follow up. She see Dr. Rendon. Code(s): I25.10 - ATHSCL HEART DISEASE OF [place] CORONARY ARTERY W/O ANG PCTRS (4) HLD (hyperlipidemia) Assessment/Plan: on statin therapy Code(s): E78.5 - HYPERLIPIDEMIA, UNSPECIFIED (5) HTN (hypertension) Assessment/Plan: monitor bp. restart cardizem per cardiology. Code(s): I10 - ESSENTIAL (PRIMARY) HYPERTENSION (6) Systolic murmur Assessment/Plan: TTE resulted: EF 65-700%, mod to severe MR/TR appreciate cardiology consultation Code(s): R01.1 - CARDIAC MURMUR, UNSPECIFIED (7) Elevated LFTs Assessment/Plan: trending down. no abdominal pain will need outpatient follow up. cleared for d/c by GI with follow up outpatient Code(s): R94.5 - ABNORMAL RESULTS OF LIVER FUNCTION STUDIES (8) Prophylactic measure Code(s): Z29.9 - ENCOUNTER FOR PROPHYLACTIC MEASURES, UNSPECIFIED This patient is new to me today: No Emergency Visit: Yes ED Registration Date: 02/06/19 Care time: The patient presented to the Emergency Department on the above date and was hospitalized for further evaluation of their emergent condition. Critical Care patient: No - Discharge Referral Referred to [facility] No
--- NOTE | 2019-02-10 15:31 | PN ---
Progress Note (short form) - Note Progress Note: s: no chest pain, palps, dizziness, dyspnea, arm pain. feels at baseline. Current Medications Generic Name Dose Route Start Last Admin Trade Name Jeannette PRN Reason Stop Dose Admin Atorvastatin Calcium 10 mg 02/06/19 22:00 02/09/19 22:39 Lipitor - PO 10 mg HS HI Administration Cholecalciferol 2,000 unit 02/06/19 10:00 02/10/19 09:47 Vitamin D3 - PO 2,000 unit DAILY [facility] Administration Diltiazem HCl 240 mg 02/06/19 10:00 02/10/19 09:47 Cardizem Cd - PO 240 mg DAILY [facility] Administration Lidocaine 2 patch 02/10/19 11:30 02/10/19 12:06 Lidoderm Patch - TP 2 patch DAILY [facility] Administration Loratadine 10 mg 02/06/19 06:35 Claritin - PO DAILY PRN NASAL CONGESTION Miscellaneous 1 each 02/10/19 22:00 Lidoderm Patch Removal MC DAILY@2200 HI Sertraline HCl 50 mg 02/06/19 10:00 02/10/19 09:47 Zoloft - PO 50 mg DAILY [facility] Administration Vital Signs Period Temp Pulse Resp BP Sys/Santa Pulse Ox Last 24 Hr 98 F-99.1 F 93-110 18-20 90-119/58-73 97-97 Constitutional: Yes: Well Nourished, No Distress, Calm Cardiovascular: Yes: Regular Rate and Rhythm, JVD, Murmur (HSM apex), S1, S2. No: Gallop Respiratory: Yes: Regular, CTA Bilaterally. No: Accessory Muscle Use, Rales, Wheezes Extremities: No: Cold Edema: No Neurological: Yes: Alert, Oriented Psychiatric: No: Agitated no jaundice, diaphoresis CBC, BMP 02/10/19 06:49 02/10/19 06:49 Assessment/Plan tele: echo 01/2019 nl LV/RV function, LA mildly dilated, mod to severe MAC, mod to severe MR, mod to severe TR, PASP at least 39 mmHg IMP: -Epigastric pain with elevated lipase and hepatic ductal dilatation. MRCP no stones, biliary duct and pancreatic duct dilatation -Chest pain, similar to prior angina sx's (remote). no isch ECG changes, trop neg x 3 -CAD w/ prior PCIs (remote) -[id number] MR (chronic, normal LV size/fxn on serial echoes), + JVD on exam though no sob, lungs clear on CXR -HTN -HLD -Hx Lung CA -arthritis REC: -pharm MPI done here shows low risk findings, continue medical management -GI followup- restart aspirin if no procedures are planned -follow up echo shows moderate to severe MR with nl LV function - outpatient follow up -BP stable -cardiac abdi ok for dc
[2019-02-10 15:39] VITALS: BP 137/89; PULSE 96; TEMP 98.6
[2019-02-10] MEDS ORDERED: LIDOCAINE PATCH REMOVAL MC SCH (22:00)
== END 2019-02-10 16:44 | disposition home or self-care (01) | DRG 445 ==
LOC: FER 18:18 → J4W 02-06 01:01 → OBSVTOIN 02-06 07:00
PROVIDERS: ADMIT Internal Medicine; ATTEND Nurse Practitioner Family
DX: K83.8 Other specified diseases of biliary tract (principal); K86.2 Cyst of pancreas; R10.9 Unspecified abdominal pain; C55 Malignant neoplasm of uterus, part unspecified; I25.10 Atherosclerotic heart disease of native coronary artery without angina pectoris; I10 Essential (primary) hypertension; E78.5 Hyperlipidemia, unspecified; Z85.118 Personal history of other malignant neoplasm of bronchus and lung; K80.50 Calculus of bile duct without cholangitis or cholecystitis without obstruction; I34.0 Nonrheumatic mitral (valve) insufficiency; K86.89 Other specified diseases of pancreas; R79.89 Other specified abnormal findings of blood chemistry; R94.5 Abnormal results of liver function studies; Z98.61 Coronary angioplasty status; K21.9 Gastro-esophageal reflux disease without esophagitis; R74.0 Nonspecific elevation of levels of transaminase and lactic acid dehydrogenase [LDH]; R07.89 Other chest pain; E66.9 Obesity, unspecified; Z68.30 Body mass index [BMI] 30.0-30.9, adult
CPT/HCPCS: 36415; 71045-TC-FY; 74177-TC; 74183-TC; 78452-TC; 80048; 80053; 80061; 80076; 81003; 82550; 83690; 83721; 83735; 83880; 84100; 84443; 84484; 85025; 85610; 86850; 86900; 86901; 93005; 93017; 93306-TC; 99284-25; A9502; A9579; G0378; J2785

== ENCOUNTER 2019-12-28 09:46 | Inpatient (IN) | payer OTHER ==
--- NOTE | 2019-12-28 09:56 | PDOC ---
Rapid Medical Evaluation Time Seen by Provider: 12/28/19 09:51 Medical Evaluation: Allergies Allergy/AdvReac Type Severity Reaction Status Date / Time No Known Allergies Allergy Verified 12/28/19 09:54 12/28/19 09:54 I have performed a brief in-person evaluation of this patient. The patient presents with a chief complaint of:SOB on and off x several days w/ palpitations, no CP. H/o HTN, HLD, CAD w/ stents (cards is [place]), on asa, lung ca s/p resection, uterine ca s/p surgery. PMD: Dr Colindres Pertinent physical exam findings:stable, NAD I have ordered the following:ekg/cxr/labs The patient will proceed to the ED for further evaluation. Discharge Disposition - Diagnosis SOB (shortness of breath) - Referrals - Patient Instructions - Post Discharge Activity
--- NOTE | 2019-12-28 10:44 | PDOC ---
Documentation entered by Issa Ambrocio SCRIBE, acting as scribe for Stef Royal MD. Stef Royal MD: This documentation has been prepared by the Lolly joaquin Xhesika, SCRIBE, under my direction and personally reviewed by me in its entirety. I confirm that the documentation accurately reflects all work, treatment, procedures, and medical decision making performed by me. History of Present Illness - General Chief Complaint: Shortness of Breath Stated Complaint: SOB Time Seen by Provider: 12/28/19 09:51 History Source: Patient Exam Limitations: No Limitations - History of Present Illness Initial Comments: 12/28/19 10:23 The patient is a 79 year old female, with a significant PMH of uterus and lung cancer (left lobectomy, in remission ), CAD, stents x2, GERD, diverticulitis, HTN,and HLD, who presents to the emergency department with intermittent SOB and palpitations for the past several days. Pt states 4-5 days ago she felt tired walking around but, today when she woke up she endorsed SOB when walking a short distance from her bed, prompting her arrival to the ED. The patient denies chest pain, abdominal pain, headache and dizziness. Denies fever, chills, nausea, vomit, diarrhea and constipation. Denies dysuria, frequency, urgency, hematuria or rectal bleeding. Allergies: NKDA Past surgical history:Abdominal ,angioplasty with stents 09/2014, cholecystectomy, left lobectomy Social history: Former smoker (quit smoking 20 years ago) PCP: Dr. Col[facility] Coach: Dr. Rendon. Past History - Medical History Allergies/Adverse Reactions: Allergies Allergy/AdvReac Type Severity Reaction Status Date / Time No Known Allergies Allergy Verified 12/28/19 09:54 Home Medications: Ambulatory Orders Aspirin [Aspir-Low] 81 mg PO DAILY 12/06/13 Acetaminophen [Tylenol .Extra-Strength -] 1,000 mg PO Q8H PRN 04/26/18 Atorvastatin Ca [Lipitor] 10 mg PO HS 04/26/18 Cholecalciferol (Vitamin D3) [Vitamin D3] 2,000 unit PO DAILY 04/26/18 Loratadine [Claritin] 10 mg PO DAILY PRN 04/26/18 Sertraline HCl [Zoloft -] 50 mg PO DAILY 04/26/18 Diltiazem Cd [Cardizem Cd -] 240 mg PO DAILY cap.cd.24h 02/10/19 Benazepril HCl 40 mg PO DAILY 12/29/19 Anemia: No Asthma: No Cancer: Yes (UTERUS/LUNG) Cardiac Disorders: Yes (CAD,stents x2) CVA: No COPD: No CHF: No Dementia: No Diabetes: No (BORDERLINE- DIET CONTROLLED) GI Disorders: Yes (GERD DIVERTICULITIS) Disorders: No HTN: Yes Hypercholesterolemia: Yes Liver Disease: No Seizures: No Thyroid Disease: No - Surgical History Abdominal Surgery: Yes Appendectomy: No Cardiac Surgery: No (Angioplasty with Stents 09/2014) Cholecystectomy: Yes Lung Surgery: Yes (Left Lobectomy) Neurologic Surgery: No Orthopedic Surgery: No - Immunization History Td Vaccination: (UNKNOWN) Immunization Up to Date: Yes - Psycho-Social/Smoking History Smoking Status: No Smoking History: Never smoked Have you smoked in the past 12 months: No Number of Cigarettes Smoked Daily: 0 If you are a former smoker, when did you quit?: 20 YEARS AGO - Substance Abuse Hx (Audit-C & DAST Scrn) How often the patient has a drink containing alcohol: Never Score: In Men: 4 or > Positive; In Women: 3 or > Positive: 0 Screen Result (Pos requires Nsg. Audit-10AR): Negative In the last yr the pt used illegal drug/Rx for NonMed reason: No Score: Yes response is considered Positive: 0 Screen Result (Positive result requires Nsg. DAST-10): Negative Review of Systems - Review of Systems Able to Perform ROS?: Yes Comments:: 12/28/19 10:27 Constitutional - Pt denies Fever, Chills, weakness, HEENT: denies vision changes, sore throat Respiratory: Denies cough, hemoptysis. +intermittent SOB Cardiac: denies chest pain, light headedness, leg swelling. + Palpitations Abd/GI: denies abd pain, nausea, vomiting, blood per rectum, melena, diarrhea : denies dysuria, frequency, discharge Musculskelatal - denies back pain, joint swelling skin - denies bruising, erythema, rash neurological: denies headache, numbness, focal weakness, tingling, ataxia, weakness hematologic: denies anemia, easy bruising, easy bleeding *Physical Exam - Vital Signs Last Vital Signs Temp Pulse Resp BP Pulse Ox 98.2 F 91 H 20 166/97 95 12/28/19 09:55 12/28/19 09:55 12/28/19 09:55 12/28/19 09:55 12/28/19 09:55 - Physical Exam 12/28/19 10:37 GENERAL: The patient is awake, alert, and fully oriented, Nontoxic - in no acute distress. HEAD: Normocephalic, atraumatic. EYES: extraocular movements intact, sclera anicteric, conjunctiva clear. ENT: Normal voice, Moist mucous membranes. NECK: Normal range of motion, supple without lymphadenopathy, JVD, or masses. LUNGS: deminished breath sounds to the L lung HEART: +irregular heart rate. no murmur, rub or gallop. ABDOMEN: Soft, nontender, normoactive bowel sounds. No guarding, no rebound. No masses. EXTREMITIES: Normal range of motion, no edema. No clubbing or cyanosis. No cords, erythema, or tenderness. NEUROLOGICAL: No facial asymmetry. PSYCH: Normal mood, normal affect. SKIN: Warm, Dry, normal turgor, no rashes or lesions noted. Heart Score/ECG Review - ECG Impressions Comment:: 12/28/19 10:42 Twelve-lead EKG was performed and reviewed by me. Irregularly irregular, rate of 103 T wave inversions and slight depressions in the lateral leads ED Treatment Course - LABORATORY CBC & Chemistry Diagram: 12/31/19 06:00 12/31/19 06:00 Medical Decision Making - Medical Decision Making 12/28/19 10:40 suspect new onset afib vs chf will obtain cxr, labs, pt placed on cardiac montiro ekg noted for afib, rate controlled at 103 pt noted mildly hypoxic, corrects with 2 L of NC 12/28/19 16:02 pts increasd WOB after CT there was possible R heart strai on bedside echo, so we obtained a CTA. after CTA, pt had increased WOB due to laying down - placed on bipap to assist wob pt admitted for further manbagement Discharge - Discharge Information Problems reviewed: Yes Clinical Impression/Diagnosis: SOB (shortness of breath), Hypoxia Atrial fibrillation Qualifiers: Atrial fibrillation type: unspecified Qualified Code(s): I48.91 - Unspecified atrial fibrillation CHF (congestive heart failure) Qualifiers: Heart failure type: unspecified Heart failure chronicity: acute Qualified Code(s): I50.9 - Heart failure, unspecified Condition: Guarded - Follow up/Referral - Patient Discharge Instructions - Post Discharge Activity
[2019-12-28 10:48] LABS: BASO % 0.7 % (0-2.0); EOS % 0.5 % (0-4.5); HEMATOCRIT 36.7 % (32.4-45.2); HEMOGLOBIN 11.9 GM/dL (10.7-15.3); LYMPH % 14.6 % (8-40); MCHC 32.4 g/dl (32.0-36.0); MEAN CELL VOLUME 92.5 fl (80-96); MEAN PLT VOLUME 10.5 fl (7.5-11.1); MONO % 6.9 % (3.8-10.2); NEUT % 77.3 % (42.8-82.8); PLATELET COUNT 206 K/MM3 (134-434); RBC 3.97 M/mm3 (3.60-5.2); RDW 14.7 % (11.6-15.6); WHITE BLOOD COUNT 9.2 K/mm3 (4.0-10.0)
[2019-12-28 11:09] LABS: ALBUMIN 3.8 g/dl (3.4-5.0); ALK PHOS 104 U/L (45-117); ANION GAP 6 MMOL/L (8-16); BILIRUBIN,TOTAL 0.8 mg/dL (0.2-1); BLOOD UREA NITROGEN 14.9 mg/dL (7-18); CALCIUM 10.2 mg/dL (8.5-10.1); CHLORIDE 106 mmol/L (98-107); CO2 28 mmol/L (21-32); CREATININE 0.6 mg/dL (0.55-1.3); GLUCOSE,RANDOM 105 mg/dL (74-106); POTASSIUM 4.1 mmol/L (3.5-5.1); SGOT/AST 14 U/L (15-37); SGPT/ALT 18 U/L (13-61); SODIUM 139 mmol/L (136-145); TOT PROT 7.1 g/dl (6.4-8.2)
--- NOTE | 2019-12-28 12:02 | PDOC ---
History of Present Illness - General History Source: Patient Exam Limitations: No Limitations - History of Present Illness Initial Comments: 12/28/19 12:15 The patient is a 79 year old female, with a significant PMH of uterus and lung cancer (left lobectomy, in remission ), CAD, stents x2, GERD, diverticulitis, HTN,and HLD, who presents to the emergency department with intermittent SOB and palpitations for the past several days. Pt states 4-5 days ago she felt tired walking around but, today when she woke up she endorsed SOB when walking a short distance from her bed, prompting her arrival to the ED. The patient denies chest pain, abdominal pain, headache and dizziness. Denies fever, chills, nausea, vomit, diarrhea and constipation. Denies dysuria, frequency, urgency, hematuria or rectal bleeding. <Larry Oviedo - Last Filed: 12/28/19 12:15> <Stef Royal - Last Filed: 12/28/19 17:23> - General Chief Complaint: Shortness of Breath Stated Complaint: SOB Time Seen by Provider: 12/28/19 09:51 Past History - Medical History Anemia: No Asthma: No Cancer: Yes (UTERUS/LUNG) Cardiac Disorders: Yes (CAD,stents x2) CVA: No COPD: No CHF: No Dementia: No Diabetes: No (BORDERLINE- DIET CONTROLLED) GI Disorders: Yes (GERD DIVERTICULITIS) Disorders: No HTN: Yes Hypercholesterolemia: Yes Liver Disease: No Seizures: No Thyroid Disease: No - Surgical History Abdominal Surgery: Yes Appendectomy: No Cardiac Surgery: No (Angioplasty with Stents 09/2014) Cholecystectomy: Yes Lung Surgery: Yes (Left Lobectomy) Neurologic Surgery: No Orthopedic Surgery: No - Immunization History Td Vaccination: (UNKNOWN) Immunization Up to Date: Yes - Psycho-Social/Smoking History Smoking Status: No Smoking History: Never smoked Have you smoked in the past 12 months: No Number of Cigarettes Smoked Daily: 0 If you are a former smoker, when did you quit?: 20 YEARS AGO - Substance Abuse Hx (Audit-C & DAST Scrn) How often the patient has a drink containing alcohol: Never Score: In Men: 4 or > Positive; In Women: 3 or > Positive: 0 Screen Result (Pos requires Nsg. Audit-10AR): Negative In the last yr the pt used illegal drug/Rx for NonMed reason: No Score: Yes response is considered Positive: 0 Screen Result (Positive result requires Nsg. DAST-10): Negative <Larry Oviedo - Last Filed: 12/28/19 12:15> <Stef Royal - Last Filed: 12/28/19 17:23> - Medical History Allergies/Adverse Reactions: Allergies Allergy/AdvReac Type Severity Reaction Status Date / Time No Known Allergies Allergy Verified 12/28/19 09:54 Home Medications: Ambulatory Orders Aspirin [Aspir-Low] 81 mg PO DAILY 12/06/13 Acetaminophen [Tylenol .Extra-Strength -] 1,000 mg PO Q8H PRN 04/26/18 Atorvastatin Ca [Lipitor] 10 mg PO HS 04/26/18 Cholecalciferol (Vitamin D3) [Vitamin D3] 2,000 unit PO DAILY 04/26/18 Loratadine [Claritin] 10 mg PO DAILY PRN 04/26/18 Sertraline HCl [Zoloft -] 50 mg PO DAILY 04/26/18 Diltiazem Cd [Cardizem Cd -] 240 mg PO DAILY cap.cd.24h 02/10/19 *Physical Exam - Vital Signs Last Vital Signs Temp Pulse Resp BP Pulse Ox 98.2 F 100 H 24 H 124/85 99 12/28/19 09:55 12/28/19 10:10 12/28/19 10:10 12/28/19 10:10 12/28/19 10:10 <Larry Oviedo - Last Filed: 12/28/19 12:15> - Vital Signs Last Vital Signs Temp Pulse Resp BP Pulse Ox 98.2 F 92 H 19 142/90 100 12/28/19 09:55 12/28/19 13:02 12/28/19 13:02 12/28/19 13:02 12/28/19 13:02 <Stef Royal - Last Filed: 12/28/19 17:23> ED Treatment Course - LABORATORY CBC & Chemistry Diagram: 12/28/19 10:15 12/28/19 10:15 - ADDITIONAL ORDERS Additional order review: Laboratory Results 12/28/19 10:15 Sodium 139 Potassium 4.1 Chloride 106 Carbon Dioxide 28 Anion Gap 6 L BUN 14.9 Creatinine 0.6 Est GFR (CKD-EPI)AfAm 99.07 Est GFR (CKD-EPI)NonAf 85.48 Random Glucose 105 Calcium 10.2 H Total Bilirubin 0.8 AST 14 L ALT 18 Alkaline Phosphatase 104 Creatine Kinase 32 Troponin I < 0.02 Total Protein 7.1 Albumin 3.8 12/28/19 10:15 RBC 3.97 MCV 92.5 MCHC 32.4 RDW 14.7 MPV 10.5 Neutrophils % 77.3 Lymphocytes % 14.6 Monocytes % 6.9 Eosinophils % 0.5 Basophils % 0.7 <Larry Oviedo - Last Filed: 12/28/19 12:15> - LABORATORY CBC & Chemistry Diagram: 12/28/19 10:15 12/28/19 10:15 - ADDITIONAL ORDERS Additional order review: Laboratory Results 12/28/19 10:15 Sodium 139 Potassium 4.1 Chloride 106 Carbon Dioxide 28 Anion Gap 6 L BUN 14.9 Creatinine 0.6 Est GFR (CKD-EPI)AfAm 99.07 Est GFR (CKD-EPI)NonAf 85.48 Random Glucose 105 Calcium 10.2 H Total Bilirubin 0.8 AST 14 L ALT 18 Alkaline Phosphatase 104 Creatine Kinase 32 Troponin I < 0.02 B-Natriuretic Peptide 4601.7 H Total Protein 7.1 Albumin 3.8 12/28/19 10:15 RBC 3.97 MCV 92.5 MCHC 32.4 RDW 14.7 MPV 10.5 Neutrophils % 77.3 Lymphocytes % 14.6 Monocytes % 6.9 Eosinophils % 0.5 Basophils % 0.7 - Medications Given in the ED: ED Medications Discontinued Medications Generic Name Dose Route Start Last Admin Trade Name Marcioq PRN Reason Stop Dose Admin Furosemide 40 mg 12/28/19 15:24 12/28/19 16:05 Lasix Injection - IVPUSH 12/28/19 15:25 40 mg ONCE ONE Administration Ondansetron HCl 4 mg 12/28/19 16:07 12/28/19 16:30 Zofran Injection IVPUSH 12/28/19 16:08 4 mg ONCE ONE Administration <Stef Royal - Last Filed: 12/28/19 17:23> Discharge <Larry Oviedo - Last Filed: 12/28/19 12:15> - Discharge Information Problems reviewed: Yes - Admission Yes <Stef Royal - Last Filed: 12/28/19 17:23> - Discharge Information Clinical Impression/Diagnosis: SOB (shortness of breath), Hypoxia Atrial fibrillation Qualifiers: Atrial fibrillation type: unspecified Qualified Code(s): I48.91 - Unspecified atrial fibrillation CHF (congestive heart failure) Qualifiers: Heart failure type: unspecified Heart failure chronicity: acute Qualified Code(s): I50.9 - Heart failure, unspecified Condition: Guarded
[2019-12-28 12:35] LABS: N-TERMINAL BNP 4601.7 pg/ml (5-450)
--- NOTE | 2019-12-28 14:14 | EKG ---
Test Reason : Blood Pressure : / mmHG Vent. Rate : 103 BPM Atrial Rate : 089 BPM P-R Int : 000 ms QRS Dur : 092 ms QT Int : 346 ms P-R-T Axes : 000 029 218 degrees QTc Int : 453 ms ATRIAL FIBRILLATION WITH RAPID VENTRICULAR RESPONSE WITH PREMATURE VENTRICULAR OR ABERRANTLY CONDUCTED COMPLEXES ABNORMAL ECG WHEN COMPARED WITH ECG OF 05-FEB-2019 18:35, ATRIAL FIBRILLATION HAS REPLACED SINUS RHYTHM T WAVE INVERSION NOW EVIDENT IN INFERIOR LEADS T WAVE INVERSION NOW EVIDENT IN ANTEROLATERAL LEADS Confirmed by Delvin Balbuena ([id number]) on 12/28/2019 2:13:41 PM Referred By: Confirmed By:Delvin Balbuena
[2019-12-28] MEDS ORDERED: FUROSEMIDE 40 MG/4 ML INJECTABLE VIAL IVPUSH ONE (15:24)
[2019-12-28] MEDS ORDERED: FUROSEMIDE 40 MG/4 ML INJECTABLE VIAL ONE (15:47)
[2019-12-28] MEDS ORDERED: ONDANSETRON 4 MG/2 ML VIAL IVPUSH ONE (16:07)
--- NOTE | 2019-12-28 16:14 | PN ---
Teaching Attending Note Name of Resident: Archie Roblero ATTENDING PHYSICIAN STATEMENT I saw and evaluated the patient. I reviewed the resident's note and discussed the case with the resident. I agree with the resident's findings and plan as documented. SUBJECTIVE: 79 year old pleasant obese female with known history of diverticuliti s, CAD sp cardiac stenting x 2, cholecystectomy, GERD, hyperlipidemia, uterine and lung CA sp left lobectomy who presents to the ED complaining of worsening shortness of breath x few days, worse with any activity. She denied cindy chest pains, cough, fever At the ED she was in severe respiratory distress needing bilevel positive airway pressure support. bus monitor showed atrial fibrillation in rapid ventricular response. OBJECTIVE: Gen appears appropriate for stated age, in moderate resp distress HEENT: EOMI, no oral lesions neck: supple, no JVD elevation Chest: ronchi and crackles on right with radiation to the left lung field CVS: Tachycardic, irregular, no murmurs abd; soft, nontender, nondistended, +BS ext; trace edema, feet are warm and dry dough sheeter; normal strength bilateral upper and lower extremities. Cranial nerves III=- XII intact ASSESSMENT AND PLAN: 1. SOB secondary to CHF Exacerbation - oxygen support (unable to tolerate bipap, now on mask and saturating well) - cardiology consultation - serial troponins - continuous cardiac monitoring - last echo 01/2019 - cont aspirin, lipid profile, check lipid profile - cont statin 2. Atrial fibrillation in RVR - [id number] score=5 - start apixaban if no CI 3. Lung CA sp left lobectomy in remission - there is mild pleural effusion and a lung nodule seen on imaging - pulm consultation 4. DVT prophylaxis - apixaban SAM Draper and Dr Roblero
--- NOTE | 2019-12-28 16:54 | HP ---
Admitting History and Physical - Admission History of Present Illness: 79 year old female with PMH of Uterine CA (resection 40 years ago), Lung CA (resection 30 years ago), CAD (2x stents 4-5 years ago, not on AC), HTN, and HLD presented to the ER with 4 days of SOB with acutely worsening SOB, palpitations, and nausea since this morning. Ambulates with a cane, endorses decreased level of exertion (SOB at minimal exertion), orthopnea, PND, and uses 1 pillow at night. Was found to have AFib on CXR, CTA was negative for PE but did show evidence of mild pulmonary congestion, and a small R sided pleural effusion. She was found to have a BNP of 4.6k - Past Medical History Cardiovascular: Yes: CAD, HTN, Hyperlipdemia Pulmonary: Yes: Cancer (remission) Gastrointestinal: Yes: Diverticulitis, GERD Heme/Onc: Yes: Other (Uterine cancer, Lung cancer) - Past Surgical History Past Surgical History: Yes: Cholecystectomy - Smoking History Smoking history: Never smoked Have you smoked in the past 12 months: No Aproximately how many cigarettes per day: 0 If you are a former smoker, when did you quit?: 20 YEARS AGO - Alcohol/Substance Use Hx Alcohol Use: No History of Substance Use: reports: None - Social History ADL: Independent Occupation: retired History of Recent Travel: No Home Medications - Allergies Allergies/Adverse Reactions: Allergies Allergy/AdvReac Type Severity Reaction Status Date / Time No Known Allergies Allergy Verified 01/06/20 09:11 - Home Medications Home Medications: Ambulatory Orders Acetaminophen [Tylenol .Extra-Strength -] 1,000 mg PO Q8H PRN 04/26/18 Atorvastatin Ca [Lipitor] 10 mg PO HS 04/26/18 Cholecalciferol (Vitamin D3) [Vitamin D3] 2,000 unit PO DAILY 04/26/18 Loratadine [Claritin] 10 mg PO DAILY PRN 04/26/18 Sertraline HCl [Zoloft -] 50 mg PO DAILY 04/26/18 Diltiazem Cd [Cardizem Cd -] 240 mg PO DAILY cap.cd.24h 02/10/19 Benazepril HCl 40 mg PO DAILY 12/29/19 Apixaban [Eliquis -] 5 mg PO BID #60 tablet 01/01/20 Furosemide [Lasix] 40 mg PO DAILY #30 tablet 01/11/20 Physical Examination Vital Signs: Vital Signs Temperature 98.2 F 12/28/19 09:55 Pulse Rate 92 H 12/28/19 13:02 Respiratory Rate 19 12/28/19 13:02 Blood Pressure 142/90 12/28/19 13:02 O2 Sat by Pulse Oximetry (%) 100 12/28/19 13:02 Eyes: Yes: WNL, Conjunctiva Clear, EOM Intact HENT: Yes: Atraumatic Neck: Yes: Trachea Midline Cardiovascular: Yes: Pulse Irregular Respiratory: Yes: Poor Air Entry (No air entry on the L (Hx of lobectomy)), Rales (Crackles at L base) Gastrointestinal: Yes: WNL, Normal Bowel Sounds, Soft Extremities: Yes: WNL Edema: No Neurological: Yes: WNL ...Motor Strength: WNL Labs: CBC, BMP 12/28/19 10:15 12/28/19 10:15 Assessment/Plan 79 year old female with PMH of Uterine CA, Lung CA, CAD (2x stents 4-5 years ago, not on AC), HTN, and HLD presented to the ER with 4 days of SOB with acutely worsening SOB, palpitations, and nausea since this morning. Found to have AFib on EKG, admitted for management of AFib and suspected CHF exacerbation. #SOB - Will consider CHF exacerbation due to elevated BNP, mild congestion on CT, and crackles on physical exam - Last Echo 02/11 with EF 65-70% and severe MR, TR - Lasix 40mg IV daily, will monitor response - Tele monitoring, daily weighs, I/Os #Afib - CHADs VASc 5, not currently on AC - Tele monitoring - Echo as per Cardio, Cardiac consult (Dr. Rendon) - TSH - Continue home Cardizem #Pleural Effusion - Small, will consult pulm for recs regarding drainage vs observation #Hx of HTN/HLD - Continue home meds #FEN - Na controlled diet #Prophylaxis - Lovenox #Dispo - Tele monitoring Visit type - Medication Review Med list reviewed for High Risk Meds patients 65 and older: Yes - Emergency Visit Emergency Visit: No - New Patient This patient is new to me today: No - Critical Care Critical Care patient: No ATTENDING PHYSICIAN STATEMENT I saw and evaluated the patient. I reviewed the resident's note and discussed the case with the resident. I agree with the resident's findings and plan as documented. SUBJECTIVE: OBJECTIVE: ASSESSMENT AND PLAN:
[2019-12-28] MEDS ORDERED: dilTIAZem HCL 60 MG TABLET PO ONE ×2 (18:24)
--- NOTE | 2019-12-28 18:34 | HP ---
CHIEF COMPLAINT: Heart palpitations and shortness of breath PCP: Dr. George Colindres HISTORY OF PRESENT ILLNESS: 79 year old female patient with past medical history that includes Lung Cancer s/p Left Lobectomy, Uterine Cancer s/p Hysterectomy, CAD with 2 stents on Aspirin, GERD, Diverticulitis, HTN, and HLD, who presented to the Emergency Room with shortness of breath and palpitations that have been on and off for the past several days. The palpitations last only a few seconds when they occur. The patient reports feeling shortness of breath that is worse when she lies down compared to when she sits up during her episodes; however, she denies having any problems with shortness of breath before these episodes of palpitations began. At her baseline, she reports having no shortness of breath on exertion and having no shortness of breath when lying down at night. She sleeps on 1 pillow. When asked about obstructive sleep apnea symptoms, the patient also reports dozing off during the day sometimes, as well as some fatigue, but denied waking up gasping for air or snoring. When asked about her history of lung cancer, the patient reports that she sees the Oncologist Dr. Reyes every [address] months, [address] Reyes did not tell her that she has any problems found from her last visit. She denies any recent weight loss. ECG found AFib with RVR. Labs showed a BNP of 4,601. CXR showed coarse lung changes in the right lung and opacification of the left hemithorax. CT Chest/Thorax found a small right pleural effusion and a nonspecific 1.7 x 1.3 cm right lower lobe pulmonary nodule. ER course was notable for: (1) Oxygen (2) AFib with RVR on ECG (3) BNP 4,601 (4) CXR (5) CT Chest/Thorax (6) Lasix Recent Travel: PAST MEDICAL HISTORY: Hx of Lung Cancer, Hx of Uterine Cancer, CAD, GERD, Hx of Diverticulitis, HTN, HLD PAST SURGICAL HISTORY: Cholecystectomy Hysterectomy Left Lung Lobectomy 2 stents in cardiac cath Social History: Smoking: Smoked in past. 30-40 pack year smoking history Alcohol: Denies Drugs: Denies Allergies No Known Allergies Allergy (Verified 12/28/19 09:54) HOME MEDICATIONS: Home Medications Medication Instructions Recorded Aspirin [Aspir-Low] 81 mg PO DAILY 12/06/13 Acetaminophen [Tylenol 1,000 mg PO Q8H PRN 04/26/18 .Extra-Strength -] Atorvastatin Ca [Lipitor] 10 mg PO HS 04/26/18 Cholecalciferol (Vitamin D3) 2,000 unit PO DAILY 04/26/18 [Vitamin D3] Loratadine [Claritin] 10 mg PO DAILY PRN 04/26/18 Sertraline HCl [Zoloft -] 50 mg PO DAILY 04/26/18 Diltiazem Cd [Cardizem Cd -] 240 mg PO DAILY cap.cd.24h 02/10/19 REVIEW OF SYSTEMS CONSTITUTIONAL: Absent: fever, chills, weight change CARDIOVASCULAR: Absent: peripheral edema RESPIRATORY: shortness of breath worse when lying down Absent: GASTROINTESTINAL: Absent: nausea, vomiting, diarrhea, constipation GENITOURINARY: Absent: dysuria ENDOCRINE: Absent: unexplained weight gain, unexplained weight loss NEUROLOGIC: Absent: headache Obstructive Sleep Apnea Screen: fatigue, dozing off during the day Absent: snoring, waking up gasping for air PHYSICAL EXAMINATION Vital Signs - 24 hr 12/28/19 12/28/19 12/28/19 09:55 10:10 13:02 Temperature 98.2 F Pulse Rate 91 H 100 H Pulse Rate [ 100 H 92 H Apical] Respiratory 20 24 H 19 Rate Blood Pressure 166/97 Blood Pressure 124/85 142/90 [Left Arm] O2 Sat by Pulse 95 90 L 100 Oximetry (%) 12/28/19 12/28/19 12/28/19 16:05 17:00 17:29 Temperature Pulse Rate Pulse Rate [ 106 H 94 H Apical] Respiratory 32 H 22 H Rate Blood Pressure Blood Pressure 175/84 H 140/72 [Left Arm] O2 Sat by Pulse 100 100 99 Oximetry (%) GENERAL: Awake, alert, and fully oriented, in no acute distress. HEAD: Normal with no signs of trauma. EYES: Pupils equal, round and reactive to light, extraocular movements intact, s clera anicteric, conjunctiva clear. No lid lag. EARS, NOSE, THROAT: Ears normal, nares patent, oropharynx clear without exudates. Moist mucous membranes. NECK: Normal range of motion, supple without lymphadenopathy, JVD, or masses. LUNGS: Breath sounds equal, clear to auscultation bilaterally. No wheezes, and no crackles. No accessory muscle use. HEART: Regular rate and rhythm, normal S1 and S2 without murmur, rub or gallop. ABDOMEN: Soft, nontender, not distended, normoactive bowel sounds, no guarding, no rebound, no masses. No hepatomegaly or splenomegaly. MUSCULOSKELETAL: Normal range of motion at all joints. No bony deformities or tenderness. No CVA tenderness. UPPER EXTREMITIES: 2+ pulses, warm, well-perfused. No cyanosis. No clubbing. No peripheral edema. LOWER EXTREMITIES: 2+ pulses, warm, well-perfused. No calf tenderness. No peripheral edema. NEUROLOGICAL: Cranial nerves II-XII intact. Normal speech. Normal gait. PSYCHIATRIC: Cooperative. Good eye contact. Appropriate mood and affect. SKIN: Warm, dry, normal turgor, no rashes or lesions noted, normal capillary refill. Laboratory Results - last 24 hr 12/28/19 12/28/19 10:15 10:15 WBC 9.2 RBC 3.97 Hgb 11.9 Hct 36.7 MCV 92.5 MCH 30.0 MCHC 32.4 RDW 14.7 Plt Count 206 MPV 10.5 Absolute Neuts (auto) 7.1 Neutrophils % 77.3 Lymphocytes % 14.6 Monocytes % 6.9 Eosinophils % 0.5 Basophils % 0.7 Nucleated RBC % 0 Sodium 139 Potassium 4.1 Chloride 106 Carbon Dioxide 28 Anion Gap 6 L BUN 14.9 Creatinine 0.6 Est GFR (CKD-EPI)AfAm 99.07 Est GFR (CKD-EPI)NonAf 85.48 Random Glucose 105 Calcium 10.2 H Total Bilirubin 0.8 AST 14 L ALT 18 Alkaline Phosphatase 104 Creatine Kinase 32 Troponin I < 0.02 B-Natriuretic Peptide 4601.7 H Total Protein 7.1 Albumin 3.8 ASSESSMENT/PLAN: 79 year old female patient with past medical history that includes Lung Cancer s/p Left Lobectomy, Uterine Cancer s/p Hysterectomy, CAD with 2 stents on Aspirin, GERD, Diverticulitis, HTN, and HLD, who presented to the Emergency Room with shortness of breath and palpitations that have been on and off for the past several days. 1. New onset CHF > BNP 4,601 > Shortness of breath worse when lying down > CT Chest/Thorax found a small right pleural effusion > Afebrile with a WBC count within normal limits - Daily Weights - Strict I/O's - Cardio consultation - ECHO as per Cardio - Lasix 2. AFib with RVR > Heart rate was tachycardic when the patient came to the ER > Heart rate is now 92 > ECG found AFib with RVR > CHADSVASC score 5 - Continue Diltiazem - Apixaban 5mg BID (if no contraindications for this dose) - Tele 3. Right Pleural Effusion Possibly Secondary to Right Pulmonary Nodule found on CT > 1.7 x 1.3 cm Right Pulmonary Nodule found on CT Chest/Thorax - Consult Pulmonology regarding if a thoracocentesis to look for malignancy on cytology should be done inpatient or outpatient or not at all 4. Right Pulmonary Nodule on CT - Outpatient follow up with Dr. Reyes 5. HTN - Continue Diltiazem 6. HLD - Continue Lipitor # FEN - Monitor Electrolytes. Sodium Controlled Diet. DVT PPx - Lovenox Family Medical History Family Hx Coronary Artery Disease: Father, Brother Visit type - Medication Review Med list reviewed for High Risk Meds patients 65 and older: Yes - Emergency Visit Emergency Visit: Yes ED Registration Date: 12/28/19 Care time: The patient presented to the Emergency Department on the above date and was hospitalized for further evaluation of their emergent condition. - New Patient This patient is new to me today: Yes Date on this admission: 12/28/19 - Critical Care Critical Care patient: No ATTENDING PHYSICIAN STATEMENT I saw and evaluated the patient. I reviewed the resident's note and discussed the case with the resident. I agree with the resident's findings and plan as documented. SUBJECTIVE: OBJECTIVE: ASSESSMENT AND PLAN:
[2019-12-28] MEDS ORDERED: dilTIAZem HCL 60 MG TABLET ONE (18:47)
[2019-12-28] MEDS ORDERED: ATORVASTATIN CA 10 MG TABLET (FP) ONE (22:41)
[2019-12-28] MEDS: ATORVASTATIN CA 10 MG TABLET (FP) PO SCH (22:48)
[2019-12-29 02:07] LABS: INR 1.11 (0.83-1.09); PROTHROMBIN TIME (PATIENT) 13.1 SEC (9.7-13.0)
[2019-12-29 02:10] LABS: ACTIVATED PTT 28.7 SECONDS (25.2-36.5)
[2019-12-29 03:42] VITALS: BMI 29.5
[2019-12-29 07:52] LABS: BASO % 0.4 % (0-2.0); EOS % 0.8 % (0-4.5); HEMATOCRIT 36.6 % (32.4-45.2); HEMOGLOBIN 11.7 GM/dL (10.7-15.3); LYMPH % 11.1 % (8-40); MCH 29.5 pg (25.7-33.7); MEAN CELL VOLUME 92.3 fl (80-96); MEAN PLT VOLUME 10.6 fl (7.5-11.1); MONO % 8.8 % (3.8-10.2); NEUT % 78.9 % (42.8-82.8); PLATELET COUNT 213 K/MM3 (134-434); RBC 3.96 M/mm3 (3.60-5.2); RDW 14.9 % (11.6-15.6); WHITE BLOOD COUNT 10.6 K/mm3 (4.0-10.0)
[2019-12-29 08:37] LABS: CHLORIDE 105 mmol/L (98-107); POTASSIUM 4.7 mmol/L (3.5-5.1); SODIUM 141 mmol/L (136-145)
[2019-12-29 08:56] LABS: ALBUMIN 3.6 g/dl (3.4-5.0); ALK PHOS 97 U/L (45-117); ANION GAP 7 MMOL/L (8-16); BILIRUBIN,TOTAL 0.8 mg/dL (0.2-1); BLOOD UREA NITROGEN 17.8 mg/dL (7-18); CALCIUM 9.8 mg/dL (8.5-10.1); CO2 29 mmol/L (21-32); CREATININE 0.6 mg/dL (0.55-1.3); GLUCOSE,RANDOM 92 mg/dL (74-106); PHOSPHOROUS 3.9 mg/dL (2.5-4.9); SGOT/AST 19 U/L (15-37); SGPT/ALT 23 U/L (13-61); TOT PROT 6.8 g/dl (6.4-8.2)
[2019-12-29] MEDS: CHOLECALCIFEROL (VIT D3) 1,000 UNIT (25 MCG) TABLET PO SCH (09:01)
[2019-12-29] MEDS: SERTRALINE HCL 50 MG TABLET (FP) PO SCH (09:01)
[2019-12-29] MEDS: FUROSEMIDE 40 MG/4 ML INJECTABLE VIAL IVPUSH SCH (09:01)
[2019-12-29] MEDS ORDERED: ENOXAPARIN NA (PORCINE) 40 MG/0.4 ML DISP.SYRIN SQ SCH (10:00)
[2019-12-29] MEDS ORDERED: ASPIRIN COATED 81 MG TABLET.EC PO SCH (10:00)
--- NOTE | 2019-12-29 11:10 | PN ---
Progress Note (short form) - Note Progress Note: PULMONARY CONSULTATION DICTATED 12/29/19 IMP ACUTE RESPIRATORY FAILURE ACUTE ON CHRONIC CHF AFIB WITH RVR H/O LUNG CA S/P L PNEUMONECTOMY H/O UTERINE CA HTN HLD RLL NODULE R/O MALIGNANT GERD PLAN SUPPLEMENTAL O2 NIPPV NEEDED LASIX RATE CONTROL DAILY WTS AC MONITOR LYTES,RENAL FUNCTION ECHO PET SCAN OUTPATIENT DR KRAUS Problem List - Problems (1) Atrial fibrillation Code(s): I48.91 - UNSPECIFIED ATRIAL FIBRILLATION Qualifiers: Atrial fibrillation type: unspecified Qualified Code(s): I48.91 - Unspecified atrial fibrillation (2) CHF (congestive heart failure) Code(s): I50.9 - HEART FAILURE, UNSPECIFIED Qualifiers: Heart failure type: unspecified Heart failure chronicity: acute Qualified Code(s): I50.9 - Heart failure, unspecified (3) Hypoxia Code(s): R09.02 - HYPOXEMIA (4) SOB (shortness of breath) Code(s): R06.02 - SHORTNESS OF BREATH (5) CAD (coronary artery disease) Code(s): I25.10 - ATHSCL HEART DISEASE OF [place] CORONARY ARTERY W/O ANG PCTRS (6) HLD (hyperlipidemia) Code(s): E78.5 - HYPERLIPIDEMIA, UNSPECIFIED (7) HTN (hypertension) Code(s): I10 - ESSENTIAL (PRIMARY) HYPERTENSION (8) Lung cancer Code(s): C34.90 - MALIGNANT NEOPLASM OF UNSP PART OF UNSP BRONCHUS OR LUNG (9) Uterine cancer Code(s): C55 - MALIGNANT NEOPLASM OF UTERUS, PART UNSPECIFIED
--- NOTE | 2019-12-29 12:04 | CON.CARD ---
Cardiology Consult (text) - Consultation Consultation Note: Consult Specialty:: Cardiology Referred by:: Medicine Reason for Consultation:: new afib, CHF - History of Present Illness Chief Complaint: palps, dyspnea History of Present Illness: 79f h/o CAD s/p PCI, hx lung cancer s/p resection p/w palpitations, dyspnea. Sees Dr. Rendon for cardio. Had been under a lot of stress the last few days so assumed she was stressed out when feeling racing heart but then had a hard time breathing even walking around in the house so came to the ER. No orthopnea, edema, chest pain. Noted to have afib with RVR. Was initially on Bipap in the ER, now breathing improved. patient notes no prior history of afib, not on blood thinners in the past. no history of significant bleeding. - History Source History Provided By: Patient - Past Medical History Cardio/Vascular: Yes: CAD, HTN, Hyperlipdemia Pulmonary: Yes: Cancer (remission) Gastrointestinal: Yes: Diverticulitis, GERD - Past Surgical History Past Surgical History: Yes: Cholecystectomy, Stent - Alcohol/Substance Use Hx Alcohol Use: No History of Substance Use: reports: None - Smoking History Smoking history: Former smoker Have you smoked in the past 12 months: No Aproximately how many cigarettes per day: 0 If you are a former smoker, when did you quit?: 20 YEARS AGO - Social History ADL: Independent Occupation: retired History of Recent Travel: No Home Medications - Allergies Allergies/Adverse Reactions: Allergies Allergy/AdvReac Type Severity Reaction Status Date / Time No Known Allergies Allergy Verified 12/28/19 09:54 Home Medications Medication Instructions Recorded Aspirin [Aspir-Low] 81 mg PO DAILY 12/06/13 Acetaminophen [Tylenol 1,000 mg PO Q8H PRN 04/26/18 .Extra-Strength -] Atorvastatin Ca [Lipitor] 10 mg PO HS 04/26/18 Cholecalciferol (Vitamin D3) 2,000 unit PO DAILY 04/26/18 [Vitamin D3] Loratadine [Claritin] 10 mg PO DAILY PRN 04/26/18 Sertraline HCl [Zoloft -] 50 mg PO DAILY 04/26/18 Diltiazem Cd [Cardizem Cd -] 240 mg PO DAILY cap.cd.24h 02/10/19 Family Disease History - Family Disease History Family History: Unremarkable (not pertinent to this presentation) Review of Systems Findings/Remarks: see HPI - Review of Systems Constitutional: reports: No Symptoms, Unintentional Wgt. Loss HENT: reports: No Symptoms Neck: reports: No Symptoms Cardiovascular: reports: Chest Pain Respiratory: reports: No Symptoms Gastrointestinal: reports: Abdominal Pain, Indigestion Genitourinary: denies: No Symptoms, Burning, Discharge, Dysuria, Flank Pain, Frequency, Hematuria, Incontinence, Lesions, Menses, Pain, Testicular Mass, Testicular Pain, Testicular Swelling, Urgency, Vaginal Bleeding, Other Breasts: denies: No Symptoms Reported, See HPI, Breast Implants, Discharge from Nipple, Lumps, Pain, Skin Changes, Other Musculoskeletal: denies: No Symptoms, Back Pain, Crepitus, Decreased ROM, Extremity Pain, Joint Pain, Joint Swelling, Muscle Pain, Muscle Cramps, Muscle Weakness, Other Integumentary: denies: No Symptoms, Blister, Bruising, Change in Color, Eczema, Erythema, Incision, Lesions, Lump, Pallor, Pruritis, Rash, Wound, Other Neurological: denies: No Symptoms, Change in LOC, Change in Speech, Confusion, Dizziness, Headache, Incoordination, Numbness, Parasthesia, Pre-Existing Deficit, Seizure, Syncope, Tremors, Unsteady Gait, Weakness, Other Endocrine: denies: No Symptoms, Excessive Sweating, Flushing, Increased Hunger, Increased Thirst, Intolerance to Cold, Intolerance to Heat, Unexplained Weight Gain, Unexplained Weight Loss, Other Hematology/Lymphatic: denies: No Symptoms, Easily Bruised, Excessive Bleeding, Swollen Glands, Other - Risk Factors Known Risk Factors: Yes: Smoking, Other (known CAD s/p PCI > 1 year ago) Vital Signs Period Temp Pulse Resp BP Sys/Santa Pulse Ox Last 24 Hr 97.9 F-98.7 F 61-106 18-32 101-175/48-90 95-100 Constitutional: Yes: Calm Eyes: Yes: Conjunctiva Clear Respiratory: Yes: Other (Left old surgical incision, (Resection CA) w/ decreased breath sounds/ contra side clear, no rales or wheezing) Gastrointestinal: Yes: Soft (no rebound or guarding.) Cardiovascular: Yes: Regular Rate and Rhythm JVD: No Carotid Bruit: No Heart Sounds: Yes: S1, S2 (rrr) Murmur: Yes: Systolic Murmur Edema: No Peripheral Pulses WNL: Yes Neurological: Yes: Alert, Oriented no jaundice, diaphoresis not agitated Laboratory Last Values WBC 10.6 K/mm3 (4.0-10.0) H 12/29/19 06:14 RBC 3.96 M/mm3 (3.60-5.2) 12/29/19 06:14 Hgb 11.7 GM/dL (10.7-15.3) 12/29/19 06:14 Hct 36.6 % (32.4-45.2) 12/29/19 06:14 MCV 92.3 fl (80-96) 12/29/19 06:14 MCH 29.5 pg (25.7-33.7) 12/29/19 06:14 MCHC 32.0 g/dl (32.0-36.0) 12/29/19 06:14 RDW 14.9 % (11.6-15.6) 12/29/19 06:14 Plt Count 213 K/MM3 (134-434) 12/29/19 06:14 MPV 10.6 fl (7.5-11.1) 12/29/19 06:14 Absolute Neuts (auto) 8.3 K/mm3 (1.5-8.0) H 12/29/19 06:14 Neutrophils % 78.9 % (42.8-82.8) 12/29/19 06:14 Lymphocytes % 11.1 % (8-40) D 12/29/19 06:14 Monocytes % 8.8 % (3.8-10.2) 12/29/19 06:14 Eosinophils % 0.8 % (0-4.5) 12/29/19 06:14 Basophils % 0.4 % (0-2.0) 12/29/19 06:14 Nucleated RBC % 0 % (0-0) 12/29/19 06:14 PT with INR 13.10 SEC (9.7-13.0) H 12/29/19 01:30 INR 1.11 (0.83-1.09) H 12/29/19 01:30 PTT (Actin FS) 28.7 SECONDS (25.2-36.5) 12/29/19 01:30 Sodium 141 mmol/L (136-145) 12/29/19 06:14 Potassium 4.7 mmol/L (3.5-5.1) 12/29/19 06:14 Chloride 105 mmol/L (98-107) 12/29/19 06:14 Carbon Dioxide 29 mmol/L (21-32) 12/29/19 06:14 Anion Gap 7 MMOL/L (8-16) L 12/29/19 06:14 BUN 17.8 mg/dL (7-18) 12/29/19 06:14 Creatinine 0.6 mg/dL (0.55-1.3) 12/29/19 06:14 Est GFR (CKD-EPI)AfAm 99.07 12/29/19 06:14 Est GFR (CKD-EPI)NonAf 85.48 12/29/19 06:14 Random Glucose 92 mg/dL (74-106) 12/29/19 06:14 Calcium 9.8 mg/dL (8.5-10.1) 12/29/19 06:14 Phosphorus 3.9 mg/dL (2.5-4.9) 12/29/19 06:14 Magnesium 2.0 mg/dL (1.8-2.4) 12/29/19 06:14 Total Bilirubin 0.8 mg/dL (0.2-1) 12/29/19 06:14 AST 19 U/L (15-37) 12/29/19 06:14 ALT 23 U/L (13-61) 12/29/19 06:14 Alkaline Phosphatase 97 U/L (45-117) 12/29/19 06:14 Creatine Kinase 42 U/L (26-192) 12/29/19 06:14 Troponin I < 0.02 ng/ml (0.00-0.05) 12/29/19 06:14 B-Natriuretic Peptide 4601.7 pg/ml (5-450) H 12/28/19 10:15 Total Protein 6.8 g/dl (6.4-8.2) 12/29/19 06:14 Albumin 3.6 g/dl (3.4-5.0) 12/29/19 06:14 TSH 1.47 uIU/ml (0.358-3.74) 12/29/19 06:14 COVID-19 (DELILAH) Not detected (Not Detected) 12/28/19 18:05 CTA chest: no PE, s/p L side pneumonectomy, mild interstitial pulmonary vascular congestion with associated small right pleural effusion, cardiomegaly, pulm nodule EKG: afib, anterolateral TWI (new) echo 01/2019 nl LV/RV function, LA mildly dilated, mod to severe MAC, mod to severe MR, mod to severe TR, PASP at least 39 mmHg mibi 01/2019 med sized, mild severity reversible defect in mid anterior wall and small fixed defect in mid inferior wall with mild marylou-infarct ischemia, nl wall motion tele: afib, rate controlled 79f h/o CAD s/p PCI, hx lung cancer s/p resection p/w palpitations, dyspnea, new afib, CHF afib - cont cardizem - monitoring on tele - rates improved - check echo - start eliquis 5 mg BID (age >80, however Cr <1.5 and wt >60 kg) acute on chronic diastolic HF - repeat echo ordered - nl EF in 2018 - cont IV lasix HTN - cont cardizem HLD - cont statin CAD - cont statin, dc aspirin, starting AC as above history of lung cancer - manage per primary
[2019-12-29] MEDS: APIXABAN 5 MG TABLET PO SCH (12:24)
[2019-12-29 13:46] LABS: URINE APPEARANCE CLEAR; URINE BILIRUBIN NEGATIVE (NEGATIVE); URINE COLOR YELLOW; URINE GLUCOSE (UA) NEGATIVE (NEGATIVE); URINE KETONE NEGATIVE (NEGATIVE); URINE LEUK ESTERASE NEGATIVE (NEGATIVE); URINE NITRITE NEGATIVE (NEGATIVE); URINE PROTEIN NEGATIVE (NEGATIVE); URINE UROBILINOGEN 0.2 mg/dL (0.2-1.0)
[2019-12-29] MEDS: ACETAMINOPHEN 500 MG TABLET (FP) PO PRN (13:48)
--- NOTE | 2019-12-29 14:27 | PN ---
Physical Exam: SUBJECTIVE: Patient seen and examined at bedside in the morning. The patient reports no chest pain, abdominal pain, numbness, weakness, or diaphoresis. The patient says that her palpitations and shortness of breath only started for the first time 2 days ago. She continues to feel the palpitations again when she moves, but reports that she doesn't feel palpitations when she doesn't move, so she tries to stay still. The tele monitor shows that she is still in atrial fibrillation, but at a rate of 83 bpm while I was in the room. OBJECTIVE: Vital Signs Period Temp Pulse Resp BP Sys/[place] Pulse Ox Last 24 Hr 97.9 F-98.7 F 61-106 18-32 101-175/48-84 95-100 GENERAL: Awake, alert, and fully oriented, in no acute distress. Mild fatigue. HEAD: Normal with no signs of trauma. EYES: Extraocular movements intact. No lid lag. EARS, NOSE, THROAT: Ears normal, nares patent, oropharynx clear without exudates. Moist mucous membranes. NECK: Normal range of motion, supple without lymphadenopathy or masses. LUNGS: No breath sounds in left lung. Decreased breath sounds in right lung. No accessory muscle use. HEART: Systolic murmur heard best at apex. Irregular rhythm, normal S1 and S2. JVD present on hepatojugular reflex test. ABDOMEN: Soft, nontender, High BMI but nondistended, normoactive bowel sounds, no guarding, no rebound, no masses. MUSCULOSKELETAL: Normal range of motion at all joints. No bony deformities or tenderness. UPPER EXTREMITIES: 2+ pulses, warm, well-perfused. No cyanosis. No clubbing. Mild to minimal peripheral edema. LOWER EXTREMITIES: 2+ pulses, warm, well-perfused. No calf tenderness. Mild to minimal peripheral edema. NEUROLOGICAL: Normal speech. Normal gait. PSYCHIATRIC: Cooperative. Good eye contact. Appropriate mood and affect. SKIN: Warm, dry, normal turgor, no rashes or lesions noted, normal capillary refill. Laboratory Results - last 24 hr 12/28/19 12/28/19 12/29/19 11:00 18:05 01:30 WBC RBC Hgb Hct MCV MCH MCHC RDW Plt Count MPV Absolute Neuts (auto) Neutrophils % Lymphocytes % Monocytes % Eosinophils % Basophils % Nucleated RBC % PT with INR 13.10 H INR 1.11 H PTT (Actin FS) 28.7 Sodium Potassium Chloride Carbon Dioxide Anion Gap BUN Creatinine Est GFR (CKD-EPI)AfAm Est GFR (CKD-EPI)NonAf Random Glucose Calcium Phosphorus Magnesium Total Bilirubin AST ALT Alkaline Phosphatase Creatine Kinase Troponin I Total Protein Albumin TSH Urine Color Yellow Urine Appearance Clear Urine pH 5.0 Ur Specific [place] 1.009 L Urine Protein Negative Urine Glucose (UA) Negative Urine Ketones Negative Urine Blood Negative Urine Nitrite Negative Urine Bilirubin Negative Urine Urobilinogen 0.2 Ur Leukocyte Esterase Negative COVID-19 (DELILAH) Not detected 12/29/19 12/29/19 12/29/19 01:30 06:14 06:14 WBC 10.6 H RBC 3.96 Hgb 11.7 Hct 36.6 MCV 92.3 MCH 29.5 MCHC 32.0 RDW 14.9 Plt Count 213 MPV 10.6 Absolute Neuts (auto) 8.3 H Neutrophils % 78.9 Lymphocytes % 11.1 D Monocytes % 8.8 Eosinophils % 0.8 Basophils % 0.4 Nucleated RBC % 0 PT with INR INR PTT (Actin FS) Sodium 141 Potassium 4.7 Chloride 105 Carbon Dioxide 29 Anion Gap 7 L BUN 17.8 Creatinine 0.6 Est GFR (CKD-EPI)AfAm 99.07 Est GFR (CKD-EPI)NonAf 85.48 Random Glucose 92 Calcium 9.8 Phosphorus 3.9 Magnesium 2.0 Total Bilirubin 0.8 AST 19 ALT 23 Alkaline Phosphatase 97 Creatine Kinase 42 42 Troponin I < 0.02 < 0.02 Total Protein 6.8 Albumin 3.6 TSH 1.47 Urine Color Urine Appearance Urine pH Ur Specific [place] Urine Protein Urine Glucose (UA) Urine Ketones Urine Blood Urine Nitrite Urine Bilirubin Urine Urobilinogen Ur Leukocyte Esterase COVID-19 (DELILAH) Active Medications Generic Name Dose Route Start Last Admin Trade Name Freq PRN Reason Stop Dose Admin Acetaminophen 1,000 mg 12/28/19 17:59 12/29/19 13:48 Tylenol - PO 1,000 mg Q8H PRN Administration PAIN LEVEL 7 - 10 Apixaban 5 mg 12/29/19 12:15 12/29/19 12:24 Eliquis - PO 5 mg BID HI Administration Atorvastatin Calcium 10 mg 12/28/19 22:00 12/28/19 22:48 Lipitor - PO 10 mg HS HI Administration Cholecalciferol 2,000 unit 12/29/19 10:00 12/29/19 09:01 Vitamin D3 - PO 2,000 unit DAILY HI Administration Diltiazem HCl 240 mg 12/29/19 10:00 12/29/19 09:01 Cardizem Cd - PO 240 mg DAILY HI Administration Furosemide 40 mg 12/29/19 10:00 12/29/19 09:01 Lasix Injection - IVPUSH 40 mg DAILY HI Administration Sertraline HCl 50 mg 12/29/19 10:00 12/29/19 09:01 Zoloft - PO 50 mg DAILY HI Administration ASSESSMENT/PLAN: 79 year old female patient with past medical history that includes Lung Cancer s/p Left Lung Resection (all of the left lung per the patient), Uterine Cancer s/p Hysterectomy, CAD with 2 stents on Aspirin, GERD, Diverticulitis, HTN, and HLD, who presented to the Emergency Room with shortness of breath and palpitations that have been on and off for the past several days. 1. New onset CHF > BNP 4,601 > Shortness of breath worse when lying down > CT Chest/Thorax found a small right pleural effusion > Afebrile with a WBC count within normal limits > ECHO from 01/2019 showed mod-severe MAC, mod-severe MR, mod-severe TR, PASP at least 39 mmHg - Daily weights - Strict I/O's - Lasix - ECHO ordered 2. AFib likely secondary to valvular problems vs pulmonary HTN > AFib on the tele monitors > heart rate 83 bpm > CHADSVASC score 5 - Diltiazem - Apixaban 3. Right Pulmonary Nodule on CT - Outpatient PET scan per Pulm 4. HTN - Diltiazem 5. HLD - Lipitor # FEN - Monitor Electrolytes. Sodium Controlled Diet. DVT PPx - Eliquis Dispo - Waiting for ECHO to be done. Possible question if the patient has AFib secondary to Valvular Dysfunction, which would change the patient's anticoagulation choice for her AFib. Visit type - Emergency Visit Emergency Visit: Yes ED Registration Date: 12/28/19 Care time: The patient presented to the Emergency Department on the above date and was hospitalized for further evaluation of their emergent condition. - New Patient This patient is new to me today: No - Critical Care Critical Care patient: No - Discharge Referral Referred to [facility] Med P.C[facility] No - Medication Review Med list reviewed for High Risk Meds patients 65 and older: Yes ATTENDING PHYSICIAN STATEMENT I saw and evaluated the patient. I reviewed the resident's note and discussed the case with the resident. I agree with the resident's findings and plan as documented. SUBJECTIVE: OBJECTIVE: ASSESSMENT AND PLAN:
--- NOTE | 2019-12-29 14:46 | PN ---
Teaching Attending Note Name of Resident: Norman Draper ATTENDING PHYSICIAN STATEMENT I saw and evaluated the patient. I reviewed the resident's note and discussed the case with the resident. I agree with the resident's findings and plan as documented. SUBJECTIVE: Patient states her breathing is much better no longer having palpitations OBJECTIVE: Vital Signs Period Temp Pulse Resp BP Sys/Santa Pulse Ox Last 24 Hr 97.9 F-98.7 F 61-106 18-32 101-175/48-84 95-100 GENERAL: Awake, alert, and fully oriented, in no acute distress. HEAD: Normal with no signs of trauma. EYES: Pupils equal, round and reactive to light, extraocular movements intact, sclera anicteric, conjunctiva clear. No lid lag. EARS, NOSE, THROAT: Ears normal, nares patent, oropharynx clear without exudates. Moist mucous membranes. NECK: Normal range of motion,, +JVD, LUNGS: No lung sounds on L side, Scattered crackles on R. Side HEART: Irregular Regular rate and rhythm, ABDOMEN: Soft, nontender, not distended, normoactive bowel sounds, no guarding, no rebound, no masses. No hepatomegaly or splenomegaly. MUSCULOSKELETAL: Normal range of motion at all joints. No bony deformities or tenderness. No CVA tenderness. UPPER EXTREMITIES: 2+ pulses, warm, well-perfused. No cyanosis. No clubbing. Cap refill <2 seconds. No peripheral edema. LOWER EXTREMITIES: 2+ pulses, warm, well-perfused. No calf tenderness. No peripheral edema. NEUROLOGICAL: Cranial nerves II-XII intact. Normal speech. Normal gait. PSYCHIATRIC: Cooperative. Good eye contact. Appropriate mood and affect. SKIN: Warm, dry, normal turgor, no rashes or lesions noted. ASSESSMENT AND PLAN: 79 y/o F with extensive medical history who presents with shortness of breath and palpitations New Onset A. Fib Currently on rate control with Cardizem continue AC with Eliquis Shortness of breath: Multifactorial: RVR, Pulm HTN Patient's respiratory status improved with lasix administration likely due R Heart failure in setting of elevated PASP- [place] WHO Cat III in setting of hx of pneumonectomy pending Echo to assess R Heart pressures Lung Nodule 1.7 x 1.3 Given Hx of Lung Ca concern for recurrence Patient will need 3 month follow up with repeat Bx and likely biopsy which she can complete as an outpatient. Appreciate Deyanira schafers
[2019-12-30] MEDS: ATORVASTATIN CA 10 MG TABLET (FP) PO SCH ×2 (00:25→23:23)
[2019-12-30] MEDS: APIXABAN 5 MG TABLET PO SCH ×3 (00:25→23:23)
[2019-12-30 07:57] LABS: HEMATOCRIT 33.8 % (32.4-45.2); HEMOGLOBIN 10.9 GM/dL (10.7-15.3); MCH 29.9 pg (25.7-33.7); MCHC 32.3 g/dl (32.0-36.0); MEAN CELL VOLUME 92.4 fl (80-96); MEAN PLT VOLUME 10.5 fl (7.5-11.1); PLATELET COUNT 189 K/MM3 (134-434); RBC 3.65 M/mm3 (3.60-5.2); RDW 14.5 % (11.6-15.6); WHITE BLOOD COUNT 7.5 K/mm3 (4.0-10.0)
[2019-12-30 08:14] LABS: BLOOD UREA NITROGEN 26.6 mg/dL (7-18); CALCIUM 9.5 mg/dL (8.5-10.1); CREATININE 0.5 mg/dL (0.55-1.3); POTASSIUM 4.2 mmol/L (3.5-5.1)
[2019-12-30] MEDS: CHOLECALCIFEROL (VIT D3) 1,000 UNIT (25 MCG) TABLET PO SCH (09:04)
[2019-12-30] MEDS: SERTRALINE HCL 50 MG TABLET (FP) PO SCH (09:04)
[2019-12-30] MEDS: FUROSEMIDE 40 MG/4 ML INJECTABLE VIAL IVPUSH SCH (09:04)
--- NOTE | 2019-12-30 10:07 | PN ---
Progress Note, Physician History of Present Illness: pulmonary alert,comfortable,ambulating with PT,dyspnea improving - Current Medication List Current Medications: Active Medications Acetaminophen (Tylenol -) 1,000 mg PO Q8H PRN PRN Reason: PAIN LEVEL 7 - 10 Last Admin: 12/29/19 13:48 Dose: 1,000 mg Documented by: Apixaban (Eliquis -) 5 mg PO BID [facility] Last Admin: 12/30/19 09:04 Dose: 5 mg Documented by: Atorvastatin Calcium (Lipitor -) 10 mg PO HS [facility] Last Admin: 12/30/19 00:25 Dose: 10 mg Documented by: Cholecalciferol (Vitamin D3 -) 2,000 unit PO DAILY [facility] Last Admin: 12/30/19 09:04 Dose: 2,000 unit Documented by: Diltiazem HCl (Cardizem Cd -) 240 mg PO DAILY [facility] Last Admin: 12/30/19 09:04 Dose: 240 mg Documented by: Furosemide (Lasix Injection -) 40 mg IVPUSH DAILY [facility] Last Admin: 12/30/19 09:04 Dose: 40 mg Documented by: Sertraline HCl (Zoloft -) 50 mg PO DAILY [facility] Last Admin: 12/30/19 09:04 Dose: 50 mg Documented by: - Objective Vital Signs: Vital Signs Temperature 98.1 F 12/30/19 10:00 Pulse Rate 96 H 12/30/19 10:00 Respiratory Rate 20 12/30/19 10:00 Blood Pressure 143/53 L 12/30/19 10:00 O2 Sat by Pulse Oximetry (%) 98 12/30/19 10:00 Constitutional: Yes: Well Nourished, Calm Eyes: Yes: WNL HENT: Yes: WNL Neck: Yes: WNL Cardiovascular: Yes: Pulse Irregular, S1, S2 Respiratory: Yes: Diminished Gastrointestinal: Yes: Normal Bowel Sounds, Soft Extremities: Yes: WNL Edema: No Labs: CBC, BMP 12/30/19 05:45 12/30/19 05:45 INR, PTT INR 1.11 (0.83-1.09) H 12/29/19 01:30 Problem List - Problems (1) Atrial fibrillation Code(s): I48.91 - UNSPECIFIED ATRIAL FIBRILLATION Qualifiers: Atrial fibrillation type: unspecified Qualified Code(s): I48.91 - Unspecified atrial fibrillation (2) CHF (congestive heart failure) Code(s): I50.9 - HEART FAILURE, UNSPECIFIED Qualifiers: Heart failure type: unspecified Heart failure chronicity: acute Qualified Code(s): I50.9 - Heart failure, unspecified (3) Hypoxia Code(s): R09.02 - HYPOXEMIA (4) SOB (shortness of breath) Code(s): R06.02 - SHORTNESS OF BREATH (5) CAD (coronary artery disease) Code(s): I25.10 - ATHSCL HEART DISEASE OF [place] CORONARY ARTERY W/O ANG PCTRS (6) HLD (hyperlipidemia) Code(s): E78.5 - HYPERLIPIDEMIA, UNSPECIFIED (7) HTN (hypertension) Code(s): I10 - ESSENTIAL (PRIMARY) HYPERTENSION (8) Lung cancer Code(s): C34.90 - MALIGNANT NEOPLASM OF UNSP PART OF UNSP BRONCHUS OR LUNG (9) Uterine cancer Code(s): C55 - MALIGNANT NEOPLASM OF UTERUS, PART UNSPECIFIED Assessment/Plan MP ACUTE RESPIRATORY FAILURE ACUTE ON CHRONIC CHF AFIB WITH RVR H/O LUNG CA S/P L PNEUMONECTOMY H/O UTERINE CA HTN HLD RLL NODULE R/O MALIGNANT GERD PULMONARY HTN PLAN SUPPLEMENTAL O2 NIPPV NEEDED LASIX RATE CONTROL DAILY WTS AC MONITOR LYTES,RENAL FUNCTION PET SCAN OUTPATIENT DR KRAUS Problem List - Problems (1) Atrial fibrillation Code(s): I48.91 - UNSPECIFIED ATRIAL FIBRILLATION Qualifiers: Atrial fibrillation type: unspecified Qualified Code(s): I48.91 - Unspecified atrial fibrillation (2) CHF (congestive heart failure) Code(s): I50.9 - HEART FAILURE, UNSPECIFIED Qualifiers: Heart failure type: unspecified Heart failure chronicity: acute Qualified Code(s): I50.9 - Heart failure, unspecified (3) Hypoxia Code(s): R09.02 - HYPOXEMIA (4) SOB (shortness of breath) Code(s): R06.02 - SHORTNESS OF BREATH (5) CAD (coronary artery disease) Code(s): I25.10 - ATHSCL HEART DISEASE OF [place] CORONARY ARTERY W/O ANG PCTRS (6) HLD (hyperlipidemia) Code(s): E78.5 - HYPERLIPIDEMIA, UNSPECIFIED (7) HTN (hypertension) Code(s): I10 - ESSENTIAL (PRIMARY) HYPERTENSION (8) Lung cancer Code(s): C34.90 - MALIGNANT NEOPLASM OF UNSP PART OF UNSP BRONCHUS OR LUNG (9) Uterine cancer Code(s): C55 - MALIGNANT NEOPLASM OF UTERUS, PART UNSPECIFIED
--- NOTE | 2019-12-30 12:30 | PN ---
Progress Note (short form) - Note Progress Note: s: no cp palps dizzy; sob/bhat improving but still on o2 via nc Current Medications Generic Name Dose Route Start Last Admin Trade Name Jeannette PRN Reason Stop Dose Admin Acetaminophen 1,000 mg 12/28/19 17:59 12/29/19 13:48 Tylenol - PO 1,000 mg Q8H PRN Administration PAIN LEVEL 7 - 10 Apixaban 5 mg 12/29/19 12:15 12/30/19 09:04 Eliquis - PO 5 mg BID HI Administration Atorvastatin Calcium 10 mg 12/28/19 22:00 12/30/19 00:25 Lipitor - PO 10 mg HS HI Administration Cholecalciferol 2,000 unit 12/29/19 10:00 12/30/19 09:04 Vitamin D3 - PO 2,000 unit DAILY HI Administration Diltiazem HCl 240 mg 12/29/19 10:00 12/30/19 09:04 Cardizem Cd - PO 240 mg DAILY HI Administration Furosemide 40 mg 12/29/19 10:00 12/30/19 09:04 Lasix Injection - IVPUSH 40 mg DAILY HI Administration Sertraline HCl 50 mg 12/29/19 10:00 12/30/19 09:04 Zoloft - PO 50 mg DAILY HI Administration Vital Signs Period Temp Pulse Resp BP Sys/Santa Pulse Ox Last 24 Hr 78 F-98.4 F 67-96 18-20 105-143/53-64 98-100 Constitutional: Yes: Calm Eyes: Yes: Conjunctiva Clear Respiratory: Yes: Other (Left old surgical incision, (Resection CA) w/ decreased breath sounds/ contra side clear, no rales or wheezing) Gastrointestinal: Yes: Soft (no rebound or guarding.) Cardiovascular: Yes: Regular Rate and Rhythm JVD: No Heart Sounds: Yes: S1, S2 (rrr) Murmur: Yes: Systolic Murmur Edema: No Peripheral Pulses WNL: Yes Neurological: Yes: Alert, Oriented no jaundice, diaphoresis not agitated CBC, BMP 12/30/19 05:45 12/30/19 05:45 CTA chest: no PE, s/p L side pneumonectomy, mild interstitial pulmonary vascular congestion with associated small right pleural effusion, cardiomegaly, pulm nodule EKG: afib, anterolateral TWI (new) echo 01/2019 nl LV/RV function, LA mildly dilated, mod to severe MAC, mod to severe MR, mod to severe TR, PASP at least 39 mmHg mibi 01/2019 med sized, mild severity reversible defect in mid anterior wall and small fixed defect in mid inferior wall with mild marylou-infarct ischemia, nl wall motion tele: afib, rate controlled a/p: 79f h/o CAD s/p PCI, hx lung cancer s/p resection p/w palpitations, dyspnea, new afib, CHF afib - cont cardizem, rate controlled - check echo - started eliquis 5 mg BID (age >80, however Cr <1.5 and wt >60 kg) acute on chronic diastolic HF - repeat echo ordered - nl EF in 2018 - cont IV lasix - daily chem7, wts HTN - cont cardizem HLD - cont statin CAD - cont statin, dc aspirin, starting AC as above history of lung cancer - manage per primary
--- NOTE | 2019-12-30 13:08 | CONS ---
DATE OF CONSULTATION: 12/29/2019 REFERRING PHYSICIAN: Adria Braun MD The patient is an 79-year-old female, past medical history of lung CA, status post left pneumonectomy, postoperatively did not receive any chemo; history of uterine CA, status post hysterectomy; ASHD, status post stents; GERD; diverticulitis; hypertension; hyperlipidemia; longstanding history of tobacco use, quit 15 years ago, admitted to [facility] on December 27 with complaint of shortness of breath and palpitations intermittent for the few days prior to admission. The patient denied any chest pain, nausea, vomiting, diaphoresis. States that her palpitations only last a few seconds when they occur. She also has increasing shortness of breath and dyspnea on exertion. Patient denies any fever or chills, any recent URI symptoms. On admission, the patient underwent a CTA of the chest, which revealed no evidence of pulmonary embolism but did reveal evidence of right lower lobe nodule. She also was noted to be in atrial fibrillation with rapid ventricular response. She was admitted. She was subsequently placed on supplemental O2, started on IV Lasix. The patient denies any history of CHF in the past. There is no history of occupational exposure to chemicals or fumes. Past medical history, again, includes lung CA, status post left pneumonectomy; ASHD, status post stents; uterine CA; hypertension; hyperlipidemia. Medications include Tylenol, Eliquis, Zoloft, Cardizem, Lipitor, Lasix, and Vitamin D3. REVIEW OF SYSTEMS: Positive dyspnea. No chest pain. Positive palpitation. No fever, no chills, no cough, no hemoptysis. No abdominal pain. Positive mild lower extremity edema. PHYSICAL EXAMINATION: General: The patient is an elderly female, awake, alert, appears mildly dyspneic but in no acute distress. Vital Signs: She is afebrile. Blood pressure is 105/62. Respiratory rate 18. O2 saturation 98% on 3 L nasal cannula. HEENT: Normocephalic, atraumatic. Neck: Supple. Heart: Irregularly irregular. S1, S2. Chest: Diminished breath sounds on the left, few crackles at the right base. Abdomen: Soft. Bowel sounds positive. Extremities: No cyanosis, edema. LABORATORY DATA: WBC is 7.5, hemoglobin 10.9, hematocrit 33.8, with a platelet count of 189,000. INR is 1.11. BUN 26, creatinine 0.5. COVID is not detected. Chest CTA: Mild pulmonary vascular congestion, small right pleural effusion. There is also a 1.7 x 1.3 non-calcified right lower lobe nodule. IMPRESSION: 1. Acute respiratory failure secondary to [id number]-hw-rglxtyy congestive heart failure. 2. Atrial fibrillation with rapid ventricular response. 3. History of lung carcinoma, status post left pneumonectomy. 4. History of uterine carcinoma. 5. Hypertension. 6. Hyperlipidemia. 7. Right lower lobe nodule. Rule out malignant. 8. Gastroesophageal reflux disease. PLAN: Supplemental O2, NIPPV as needed, rate control, continue Lasix, daily weights, anticoagulation. Monitor electrolytes, renal function. Echo. Also a PET scan as an outpatient. AMERICA KRAUS M.D. [id number]
--- NOTE | 2019-12-30 13:21 | ECHO ---
Name: SAHARAALAN YZAMIN Exam:Adult Echocardiogram Study Date: 12/30/2019 10:03 AM Age: 79 yrs Reason For Study: CHF, A-fib Height: 62 in Weight: 161 lb BSA: 1.7 m2 MMode/2D Measurements & Calculations IVSd: 1.4 cm Ao root diam: 2.2 cm LVIDd: 4.5 cm LA dimension: 4.1 cm LVIDs: 3.2 cm ACS: 0.89 cm LVPWd: 0.94 cm LVPWs: 1.0 cm EDV(Teich): 94.0 ml ESV(Teich): 41.8 ml LVOT diam: 1.7 cm LVLd ap4: 5.2 cm EDV(MOD-sp4): 52.0 ml LVLs ap4: 4.0 cm ESV(MOD-sp4): 20.0 ml SV(MOD-sp4): 32.0 ml LAV (MOD-bp): 50.0 ml TAPSE: 1.3 cm Doppler Measurements & Calculations MVA(VTI): 1.6 cm2 MV E max lili: 172.2 cm/sec MV V2 max: 191.4 cm/sec MV dec time: 0.15 sec MV max P.7 mmHg MV V2 mean: 122.5 cm/sec MV mean P.3 mmHg MV V2 VTI: 33.5 cm MV P1/2t max lili: 184.6 cm/sec Ao V2 max: 235.9 cm/sec MV P1/2t: 47.7 msec Ao max P.9 mmHg Ao V2 mean: 167.0 cm/sec MVA(P1/2t): 4.6 cm2 Ao mean P.1 mmHg MV dec slope: 1134 cm/sec2 Ao V2 VTI: 52.2 cm JAYRO(I,D): 1.0 cm2 JAYRO(V,D): 1.1 cm2 LV V1 max P.1 mmHg MR max lili: 510.0 cm/sec LV V1 mean P.7 mmHg MR max P.6 mmHg LV V1 max: 112.8 cm/sec LV V1 mean: 77.1 cm/sec LV V1 VTI: 22.9 cm SV(LVOT): 53.8 ml TR max lili: 285.9 cm/sec TR max P.8 mmHg PA V2 max: 109.9 cm/sec PA max P.8 mmHg Procedure A complete two-dimensional transthoracic echocardiogram was performed (2D, M-mode, Doppler and color flow Doppler). The study was technically difficult with many images being suboptimal in quality. Left Ventricle The left ventricular size, thickness and function are normal. Ejection Fraction = 60-65%. No regional wall motion abnormalities noted. Right Ventricle The right ventricle is normal in size and function. Atria The left atrium is moderately dilated. The right atrium is moderately dilated. Mitral Valve There is mild mitral annular calcification. There is moderate to severe mitral regurgitation. Tricuspid Valve There is moderate tricuspid regurgitation. Right ventricular systolic pressure is normal. Aortic Valve Moderate valvular aortic stenosis. No aortic regurgitation is present. Pulmonic Valve Trace pulmonic valvular regurgitation. Great Vessels The aortic root is normal size. Pericardium/Pleura There is no pericardial effusion. Interpretation Summary The study was technically difficult with many images being suboptimal in quality. The left ventricular size, thickness and function are normal The right ventricle is normal in size and function. The left atrium is moderately dilated. The right atrium is moderately dilated. There is moderate to severe mitral regurgitation. There is moderate tricuspid regurgitation. Moderate valvular aortic stenosis. Trace pulmonic valvular regurgitation. MD Justin Gordillo 12/30/2019 01:20 PM
--- NOTE | 2019-12-30 13:50 | PN ---
Teaching Attending Note Name of Resident: Norman Draper ATTENDING PHYSICIAN STATEMENT I saw and evaluated the patient. I reviewed the resident's note and discussed the case with the resident. I agree with the resident's findings and plan as documented. SUBJECTIVE: Patient reports shortness of breath has improved OBJECTIVE: Vital Signs Period Temp Pulse Resp BP Sys/Santa Pulse Ox Last 24 Hr 78 F-98.4 F 67-96 18-20 105-143/53-64 98-100 GENERAL: Awake, alert, and fully oriented, in no acute distress. HEAD: Normal with no signs of trauma. EYES: Pupils equal, round and reactive to light, extraocular movements intact, sclera anicteric, conjunctiva clear. No lid lag. EARS, NOSE, THROAT: Ears normal, nares patent, oropharynx clear without exudates. Moist mucous membranes. NECK: Normal range of motion,, +JVD, LUNGS: No lung sounds on L side, Scattered crackles on R. Side HEART: Irregular Regular rate and rhythm, ABDOMEN: Soft, nontender, not distended, normoactive bowel sounds, no guarding, no rebound, no masses. No hepatomegaly or splenomegaly. MUSCULOSKELETAL: Normal range of motion at all joints. No bony deformities or tenderness. No CVA tenderness. UPPER EXTREMITIES: 2+ pulses, warm, well-perfused. No cyanosis. No clubbing. Cap refill <2 seconds. No peripheral edema. LOWER EXTREMITIES: 2+ pulses, warm, well-perfused. No calf tenderness. No peripheral edema. NEUROLOGICAL: Cranial nerves II-XII intact. Normal speech. Normal gait. PSYCHIATRIC: Cooperative. Good eye contact. Appropriate mood and affect. SKIN: Warm, dry, normal turgor, no rashes or lesions noted. ASSESSMENT AND PLAN: 79 y/o F with extensive medical history who presents with shortness of breath and palpitations New Onset A. Fib: [place] 2/2 Valvular disorder Currently on rate control with Cardizem Transition from DOAC to coumadin as echo shows MR and TR Shortness of breath due to Pulmonary Hypertension Patient's respiratory status improved with lasix administration Echo does not comment on PASP; patient may need RHC Continue Lasix at this time Titrate O2 as tolerated Lung Nodule 1.7 x 1.3 Given Hx of Lung Ca concern for recurrence Pt needs PET scan/Biospy completed will defer to Pulm for futher management
--- NOTE | 2019-12-30 15:48 | PN ---
Physical Exam: SUBJECTIVE: Patient seen and examined at bedside in the morning as the patient was going to ECHO. The patient still has palpitations and irregular rhythm. OBJECTIVE: Vital Signs Period Temp Pulse Resp BP Sys/Santa Pulse Ox Last 24 Hr 98 F-98.4 F 67-96 18-20 90-143/53-64 98-100 GENERAL: Awake, alert, and fully oriented, in no acute distress. Mild fatigue. HEAD: Normal with no signs of trauma. EYES: Extraocular movements intact. No lid lag. EARS, NOSE, THROAT: Ears normal, nares patent, oropharynx clear without exudates. Moist mucous membranes. NECK: Normal range of motion, supple without lymphadenopathy or masses. LUNGS: No breath sounds in left lung. Decreased breath sounds in right lung. No accessory muscle use. HEART: Systolic murmur heard best at apex. Irregular rhythm, normal S1 and S2. Mild to minimal JVD present on hepatojugular reflex test. ABDOMEN: Soft, nontender, High BMI but nondistended, normoactive bowel sounds, no guarding, no rebound, no masses. MUSCULOSKELETAL: Normal range of motion at all joints. No bony deformities or tenderness. UPPER EXTREMITIES: 2+ pulses, warm, well-perfused. No cyanosis. No clubbing. Mild to minimal peripheral edema. LOWER EXTREMITIES: 2+ pulses, warm, well-perfused. No calf tenderness. Mild to minimal peripheral edema. NEUROLOGICAL: Normal speech. Normal gait. PSYCHIATRIC: Cooperative. Good eye contact. Appropriate mood and affect. SKIN: Warm, dry, normal turgor, no rashes or lesions noted, normal capillary refill. Laboratory Results - last 24 hr 12/30/19 12/30/19 05:45 05:45 WBC 7.5 RBC 3.65 Hgb 10.9 Hct 33.8 MCV 92.4 MCH 29.9 MCHC 32.3 RDW 14.5 Plt Count 189 MPV 10.5 Sodium 142 Potassium 4.2 Chloride 103 Carbon Dioxide 31 Anion Gap 7 L BUN 26.6 H Creatinine 0.5 L Est GFR (CKD-EPI)AfAm 105.20 Est GFR (CKD-EPI)NonAf 90.77 Random Glucose 91 Calcium 9.5 Active Medications Generic Name Dose Route Start Last Admin Trade Name Freq PRN Reason Stop Dose Admin Acetaminophen 1,000 mg 12/28/19 17:59 12/29/19 13:48 Tylenol - PO 1,000 mg Q8H PRN Administration PAIN LEVEL 7 - 10 Apixaban 5 mg 12/29/19 12:15 12/30/19 09:04 Eliquis - PO 5 mg BID HI Administration Atorvastatin Calcium 10 mg 12/28/19 22:00 12/30/19 00:25 Lipitor - PO 10 mg HS HI Administration Cholecalciferol 2,000 unit 12/29/19 10:00 12/30/19 09:04 Vitamin D3 - PO 2,000 unit DAILY HI Administration Diltiazem HCl 240 mg 12/29/19 10:00 12/30/19 09:04 Cardizem Cd - PO 240 mg DAILY HI Administration Furosemide 40 mg 12/29/19 10:00 12/30/19 09:04 Lasix Injection - IVPUSH 40 mg DAILY HI Administration Sertraline HCl 50 mg 12/29/19 10:00 12/30/19 09:04 Zoloft - PO 50 mg DAILY HI Administration ASSESSMENT/PLAN: 79 year old female patient with past medical history that includes Lung Cancer s/p Left Lung Resection (all of the left lung per the patient), Uterine Cancer s/p Hysterectomy, CAD with 2 stents on Aspirin, GERD, Diverticulitis, HTN, and HLD, who presented to the Emergency Room with shortness of breath and palpita tions that have been on and off for the past several days. 1. New onset CHF > BNP 4,601 > Shortness of breath worse when lying down > CT Chest/Thorax found a small right pleural effusion > Afebrile with a WBC count within normal limits > ECHO from 01/2019 showed mod-severe MAC, mod-severe MR, mod-severe TR, PASP at least 39 mmHg - Daily weights - Strict I/O's - Lasix 2. AFib likely secondary to valvular problems vs pulmonary HTN > heart rate 78 bpm > CHADSVASC score 5 - Diltiazem - Apixaban 3. Right Pulmonary Nodule on CT - Outpatient PET scan per Pulm 4. HTN - Diltiazem 5. HLD - Lipitor # FEN - Monitor Electrolytes. Sodium Controlled Diet. DVT PPx - Eliquis Visit type - Emergency Visit Emergency Visit: Yes ED Registration Date: 12/28/19 Care time: The patient presented to the Emergency Department on the above date and was hospitalized for further evaluation of their emergent condition. - New Patient This patient is new to me today: No - Critical Care Critical Care patient: No - Discharge Referral Referred to [facility] Med P.C.: No - Medication Review Med list reviewed for High Risk Meds patients 65 and older: Yes ATTENDING PHYSICIAN STATEMENT I saw and evaluated the patient. I reviewed the resident's note and discussed the case with the resident. I agree with the resident's findings and plan as documented. SUBJECTIVE: OBJECTIVE: ASSESSMENT AND PLAN:
[2019-12-30] MEDS: ACETAMINOPHEN 500 MG TABLET (FP) PO PRN (23:23)
--- NOTE | 2019-12-31 06:14 | PN ---
Progress Note, Physician Chief Complaint: no CP/SOB TELE: Contrilled AF History of Present Illness: weight is down - Current Medication List Current Medications: Active Medications Acetaminophen (Tylenol -) 1,000 mg PO Q8H PRN PRN Reason: PAIN LEVEL 7 - 10 Last Admin: 12/30/19 23:23 Dose: 1,000 mg Documented by: Apixaban (Eliquis -) 5 mg PO BID [facility] Last Admin: 12/30/19 23:23 Dose: 5 mg Documented by: Atorvastatin Calcium (Lipitor -) 10 mg PO HS [facility] Last Admin: 12/30/19 23:23 Dose: 10 mg Documented by: Cholecalciferol (Vitamin D3 -) 2,000 unit PO DAILY [facility] Last Admin: 12/30/19 09:04 Dose: 2,000 unit Documented by: Diltiazem HCl (Cardizem Cd -) 240 mg PO DAILY [facility] Last Admin: 12/30/19 09:04 Dose: 240 mg Documented by: Furosemide (Lasix Injection -) 40 mg IVPUSH DAILY [facility] Last Admin: 12/30/19 09:04 Dose: 40 mg Documented by: Sertraline HCl (Zoloft -) 50 mg PO DAILY [facility] Last Admin: 12/30/19 09:04 Dose: 50 mg Documented by: - Objective Vital Signs: Vital Signs Temperature 98.7 F 12/31/19 02:00 Pulse Rate 88 12/31/19 02:00 Respiratory Rate 20 12/31/19 02:00 Blood Pressure 101/61 12/31/19 02:00 O2 Sat by Pulse Oximetry (%) 96 12/30/19 21:00 Constitutional: Yes: No Distress Cardiovascular: Yes: Pulse Irregular Respiratory: Yes: CTA Bilaterally Gastrointestinal: Yes: Soft Edema: No Neurological: Yes: Alert, Oriented Labs: CBC, BMP 12/30/19 05:45 12/30/19 05:45 INR, PTT INR 1.11 (0.83-1.09) H 12/29/19 01:30 Laboratory Tests 12/28/19 12/31/19 12/31/19 18:05 06:00 06:00 WBC 8.5 Hgb 11.2 Plt Count 201 Sodium 141 Potassium 4.1 Creatinine 0.5 L Magnesium 1.9 COVID-19 ([facility]ILAH) Not detected - ....Imaging EKG: Image Reviewed Assessment/Plan DATA: CTA chest: no PE, s/p L side pneumonectomy, mild interstitial pulmonary vascular congestion with associated small right pleural effusion, cardiomegaly, pulm nodul echo 01/2019 nl LV/RV function, LA mildly dilated, mod to severe MAC, mod to severe MR, mod to severe TR, PASP at least 39 mmHg mibi 01/2019 med sized, mild severity reversible defect in mid anterior wall and small fixed defect in mid inferior wall with mild marylou-infarct ischemia, nl wall motion tele: afib, rate controlled IMP/PLAN: 79f h/o CAD s/p PCI, hx lung cancer s/p resection p/w palpitations, dyspnea, new afib, CHF afib: - cont cardizem, rate controlled - echo with normal biV fxn, mod-severe MR/mod TR and mod - started eliquis 5 mg BID (age >80, however Cr <1.5 and wt >60 kg) -Needs continued evaluation on appropriate lobsterman maintenance dose which will depend on her stable dry weight. If it settles at < 60kg then would adjust dose to 2.5mg BID acute on chronic diastolic HF: - repeat echo shows normal biV fx, moderate to severe MR which may improve w/ optimized volume status. - cont IV lasix, repeat CXR and BNP today - daily chem7, wts HTN: - cont cardizem HLD: - cont statin CAD: - cont statin, dc aspirin, starting AC as above history of lung cancer: - manage per primary
[2019-12-31 06:51] LABS: HEMATOCRIT 34.8 % (32.4-45.2); HEMOGLOBIN 11.2 GM/dL (10.7-15.3); MCH 29.8 pg (25.7-33.7); MCHC 32.4 g/dl (32.0-36.0); MEAN PLT VOLUME 10.2 fl (7.5-11.1); PLATELET COUNT 201 K/MM3 (134-434); RBC 3.78 M/mm3 (3.60-5.2); RDW 14.7 % (11.6-15.6); WHITE BLOOD COUNT 8.5 K/mm3 (4.0-10.0)
[2019-12-31 07:13] LABS: BLOOD UREA NITROGEN 22.3 mg/dL (7-18); CALCIUM 9.8 mg/dL (8.5-10.1); CREATININE 0.5 mg/dL (0.55-1.3); MAGNESIUM 1.9 mg/dL (1.8-2.4); PHOSPHOROUS 3.6 mg/dL (2.5-4.9); POTASSIUM 4.1 mmol/L (3.5-5.1)
[2019-12-31] MEDS: FUROSEMIDE 40 MG/4 ML INJECTABLE VIAL IVPUSH SCH (09:08)
[2019-12-31] MEDS: SERTRALINE HCL 50 MG TABLET (FP) PO SCH (09:08)
[2019-12-31] MEDS: CHOLECALCIFEROL (VIT D3) 1,000 UNIT (25 MCG) TABLET PO SCH (09:08)
[2019-12-31] MEDS: APIXABAN 5 MG TABLET PO SCH ×2 (09:08→21:00)
--- NOTE | 2019-12-31 10:20 | PN ---
Progress Note, Physician History of Present Illness: pulmonary alert,comfortable,-cp,sob improved,o2 sat 98% on 2l - Current Medication List Current Medications: Active Medications Acetaminophen (Tylenol -) 1,000 mg PO Q8H PRN PRN Reason: PAIN LEVEL 7 - 10 Last Admin: 12/30/19 23:23 Dose: 1,000 mg Documented by: Apixaban (Eliquis -) 5 mg PO BID [facility] Last Admin: 12/31/19 09:08 Dose: 5 mg Documented by: Atorvastatin Calcium (Lipitor -) 10 mg PO HS [facility] Last Admin: 12/30/19 23:23 Dose: 10 mg Documented by: Cholecalciferol (Vitamin D3 -) 2,000 unit PO DAILY [facility] Last Admin: 12/31/19 09:08 Dose: 2,000 unit Documented by: Diltiazem HCl (Cardizem Cd -) 240 mg PO DAILY [facility] Last Admin: 12/31/19 09:08 Dose: 240 mg Documented by: Furosemide (Lasix Injection -) 40 mg IVPUSH DAILY [facility] Last Admin: 12/31/19 09:08 Dose: 40 mg Documented by: Sertraline HCl (Zoloft -) 50 mg PO DAILY [facility] Last Admin: 12/31/19 09:08 Dose: 50 mg Documented by: - Objective Vital Signs: Vital Signs Temperature 98.2 F 12/31/19 10:00 Pulse Rate 78 12/31/19 10:00 Respiratory Rate 20 12/31/19 10:00 Blood Pressure 136/57 L 12/31/19 10:00 O2 Sat by Pulse Oximetry (%) 98 12/31/19 10:00 Constitutional: Yes: Well Nourished, Calm Eyes: Yes: WNL HENT: Yes: WNL Neck: Yes: WNL Cardiovascular: Yes: Pulse Irregular, S1 Respiratory: Yes: Diminished Gastrointestinal: Yes: Normal Bowel Sounds, Soft Extremities: Yes: WNL Edema: No Labs: CBC, BMP 12/31/19 06:00 12/31/19 06:00 INR, PTT INR 1.11 (0.83-1.09) H 12/29/19 01:30 Problem List - Problems (1) Atrial fibrillation Code(s): I48.91 - UNSPECIFIED ATRIAL FIBRILLATION Qualifiers: Atrial fibrillation type: unspecified Qualified Code(s): I48.91 - Unspecified atrial fibrillation (2) CHF (congestive heart failure) Code(s): I50.9 - HEART FAILURE, UNSPECIFIED Qualifiers: Heart failure type: unspecified Heart failure chronicity: acute Qualified Code(s): I50.9 - Heart failure, unspecified (3) Hypoxia Code(s): R09.02 - HYPOXEMIA (4) SOB (shortness of breath) Code(s): R06.02 - SHORTNESS OF BREATH (5) CAD (coronary artery disease) Code(s): I25.10 - ATHSCL HEART DISEASE OF [place] CORONARY ARTERY W/O ANG PCTRS (6) HLD (hyperlipidemia) Code(s): E78.5 - HYPERLIPIDEMIA, UNSPECIFIED (7) HTN (hypertension) Code(s): I10 - ESSENTIAL (PRIMARY) HYPERTENSION (8) Lung cancer Code(s): C34.90 - MALIGNANT NEOPLASM OF UNSP PART OF UNSP BRONCHUS OR LUNG (9) Uterine cancer Code(s): C55 - MALIGNANT NEOPLASM OF UTERUS, PART UNSPECIFIED Assessment/Plan MP ACUTE RESPIRATORY FAILURE IMPROVED ACUTE ON CHRONIC CHF AFIB WITH RVR H/O LUNG CA S/P L PNEUMONECTOMY H/O UTERINE CA HTN HLD RLL NODULE R/O MALIGNANT GERD PULMONARY HTN PLAN SUPPLEMENTAL O2 NIPPV NEEDED LASIX RATE CONTROL DAILY WTS AC MONITOR LYTES,RENAL FUNCTION PET SCAN OUTPATIENT DR KRAUS Problem List - Problems (1) Atrial fibrillation Code(s): I48.91 - UNSPECIFIED ATRIAL FIBRILLATION Qualifiers: Atrial fibrillation type: unspecified Qualified Code(s): I48.91 - Unspecified atrial fibrillation (2) CHF (congestive heart failure) Code(s): I50.9 - HEART FAILURE, UNSPECIFIED Qualifiers: Heart failure type: unspecified Heart failure chronicity: acute Qualified Code(s): I50.9 - Heart failure, unspecified (3) Hypoxia Code(s): R09.02 - HYPOXEMIA (4) SOB (shortness of breath) Code(s): R06.02 - SHORTNESS OF BREATH (5) CAD (coronary artery disease) Code(s): I25.10 - ATHSCL HEART DISEASE OF [place] CORONARY ARTERY W/O ANG PCTRS (6) HLD (hyperlipidemia) Code(s): E78.5 - HYPERLIPIDEMIA, UNSPECIFIED (7) HTN (hypertension) Code(s): I10 - ESSENTIAL (PRIMARY) HYPERTENSION (8) Lung cancer Code(s): C34.90 - MALIGNANT NEOPLASM OF UNSP PART OF UNSP BRONCHUS OR LUNG (9) Uterine cancer Code(s): C55 - MALIGNANT NEOPLASM OF UTERUS, PART UNSPECIFIED
[2019-12-31 10:49] LABS: N-TERMINAL BNP 3049.8 pg/ml (5-450)
--- NOTE | 2019-12-31 13:34 | PN ---
Teaching Attending Note Name of Resident: Norman Draper ATTENDING PHYSICIAN STATEMENT I saw and evaluated the patient. I reviewed the resident's note and discussed the case with the resident. I agree with the resident's findings and plan as documented. SUBJECTIVE: Pt feels well has no complaints patient lives on her own states she is able to complete all her ADLs OBJECTIVE: Vital Signs Period Temp Pulse Resp BP Sys/Santa Pulse Ox Last 24 Hr 98.2 F-98.7 F 77-88 20-20 90-136/54-65 96-98 GENERAL: Awake, alert, and fully oriented, in no acute distress. HEAD: Normal with no signs of trauma. EYES: Pupils equal, round and reactive to light, extraocular movements intact, sclera anicteric, conjunctiva clear. No lid lag. EARS, NOSE, THROAT: Ears normal, nares patent, oropharynx clear without exudates. Moist mucous membranes. NECK: Normal range of motion, Tricuspid jet noted LUNGS: No lung sounds on L side, faint crackles at bases on the R. Side HEART: Irregular Regular rate and rhythm, ABDOMEN: Soft, nontender, not distended, normoactive bowel sounds, no guarding, no rebound, no masses. No hepatomegaly or splenomegaly. MUSCULOSKELETAL: Normal range of motion at all joints. No bony deformities or tenderness. No CVA tenderness. UPPER EXTREMITIES: 2+ pulses, warm, well-perfused. No cyanosis. No clubbing. Cap refill <2 seconds. No peripheral edema. LOWER EXTREMITIES: 2+ pulses, warm, well-perfused. No calf tenderness. No peripheral edema. NEUROLOGICAL: Cranial nerves II-XII intact. Normal speech. Normal gait. PSYCHIATRIC: Cooperative. Good eye contact. Appropriate mood and affect. SKIN: Warm, dry, normal turgor, no rashes or lesions noted. ASSESSMENT AND PLAN: 79 y/o F with extensive medical history who presents with shortness of breath and palpitations New Onset A. Fib: Likely 2/2 tricuspid regurgitation/dilated RA Currently on rate control with Cardizem continue AC with DOAC Shortness of breath Patient's respiratory status improved with lasix administration Continue Lasix at this time Will look to titrate off O2 difficult to assess fluid status as pt has Tricuspid regurg jet noted No LE edema/abdominal distention/pulmonary crackles noted Lung Nodule 1.7 x 1.3 Given Hx of Lung Ca concern for recurrence Pt needs PET scan/Biospy completed will defer to Pulm for futher management Dispo: Appreciate PT/OT recs
[2019-12-31] MEDS: POLYETHYLENE GLYCOL 3350 119 GM BTL PO SCH (16:14)
--- NOTE | 2019-12-31 17:22 | PN ---
Physical Exam: SUBJECTIVE: Patient seen and examined at bedside. The patient denies fever/chills, palpitations, shortness of breath, nausea, and bowel and bladder complaints. The patient reported feeling well enough to go tomorrow. OBJECTIVE: Vital Signs Period Temp Pulse Resp BP Sys/Santa Pulse Ox Last 24 Hr 98.2 F-98.7 F 77-88 20-20 92-136/54-65 96-98 GENERAL: Awake, alert, and fully oriented, in no acute distress. Mild fatigue. HEAD: Normal with no signs of trauma. EYES: Extraocular movements intact. No lid lag. EARS, NOSE, THROAT: Ears normal, nares patent, oropharynx clear without exudates. Moist mucous membranes. NECK: Normal range of motion, supple without lymphadenopathy or masses. LUNGS: No breath sounds in left lung. Decreased breath sounds in right lung. No accessory muscle use. HEART: Systolic murmur heard best at apex. Irregular rhythm, normal S1 and S2. No JVD present on hepatojugular reflex test, however tricuspid regurgitation causing blood to go up the jugular vein observed. ABDOMEN: Soft, nontender, High BMI but nondistended, normoactive bowel sounds, no guarding, no rebound, no masses. MUSCULOSKELETAL: Normal range of motion at all joints. No bony deformities or tenderness. UPPER EXTREMITIES: 2+ pulses, warm, well-perfused. No cyanosis. No clubbing. Mild to minimal peripheral edema. LOWER EXTREMITIES: 2+ pulses, warm, well-perfused. No calf tenderness. Mild to minimal peripheral edema. NEUROLOGICAL: Normal speech. Normal gait. PSYCHIATRIC: Cooperative. Good eye contact. Appropriate mood and affect. SKIN: Warm, dry, normal turgor, no rashes or lesions noted, normal capillary refill. Laboratory Results - last 24 hr 12/31/19 12/31/19 06:00 06:00 WBC 8.5 RBC 3.78 Hgb 11.2 Hct 34.8 MCV 92.0 MCH 29.8 MCHC 32.4 RDW 14.7 Plt Count 201 MPV 10.2 Sodium 141 Potassium 4.1 Chloride 102 Carbon Dioxide 36 H Anion Gap 3 L BUN 22.3 H Creatinine 0.5 L Est GFR (CKD-EPI)AfAm 105.20 Est GFR (CKD-EPI)NonAf 90.77 Random Glucose 92 Calcium 9.8 Phosphorus 3.6 Magnesium 1.9 B-Natriuretic Peptide 3049.8 H Active Medications Generic Name Dose Route Start Last Admin Trade Name Marcioq PRN Reason Stop Dose Admin Acetaminophen 1,000 mg 12/28/19 17:59 12/30/19 23:23 Tylenol - PO 1,000 mg Q8H PRN Administration PAIN LEVEL 7 - 10 Apixaban 5 mg 12/29/19 12:15 12/31/19 09:08 Eliquis - PO 5 mg BID [facility] Administration Atorvastatin Calcium 10 mg 12/28/19 22:00 12/30/19 23:23 Lipitor - PO 10 mg HS HI Administration Cholecalciferol 2,000 unit 12/29/19 10:00 12/31/19 09:08 Vitamin D3 - PO 2,000 unit DAILY [facility] Administration Diltiazem HCl 240 mg 12/29/19 10:00 12/31/19 09:08 Cardizem Cd - PO 240 mg DAILY [facility] Administration Furosemide 40 mg 12/29/19 10:00 12/31/19 09:08 Lasix Injection - IVPUSH 40 mg DAILY [facility] Administration Polyethylene Glycol 17 gm 12/31/19 15:30 12/31/19 16:14 Miralax (For Daily Use) - PO 17 gm DAILY [facility] Administration Sertraline HCl 50 mg 12/29/19 10:00 12/31/19 09:08 Zoloft - PO 50 mg DAILY [facility] Administration ASSESSMENT/PLAN: 79 year old female patient with past medical history that includes Lung Cancer s/p Left Lung Resection (all of the left lung per the patient), Uterine Cancer s/p Hysterectomy, CAD with 2 stents on Aspirin, GERD, Diverticulitis, HTN, and HLD, who presented to the Emergency Room with shortness of breath and palpitations that have been on and off for the past several days. 1. New onset CHF > BNP 4,601 > Shortness of breath worse when lying down > CT Chest/Thorax found a small right pleural effusion > Afebrile with a WBC count within normal limits > ECHO from 01/2019 showed mod-severe MAC, mod-severe MR, mod-severe TR, PASP at least 39 mmHg > New ECHO showed EF 60-65%, moderate dilations of both atria, mod-severe MR, mod TR, mod valvular aortic stenosis - Daily weights - Strict I/O's - Lasix - Patient now has 96% oxygen saturation on room air - Pre and Post ordered 2. AFib likely secondary to valvular problems vs pulmonary HTN > heart rate 78 bpm > CHADSVASC score 5 - Diltiazem - Apixaban 3. Right Pulmonary Nodule on CT - Outpatient PET scan per Pulm 4. HTN - Diltiazem 5. HLD - Lipitor # FEN - Monitor Electrolytes. Sodium Controlled Diet. DVT PPx - Eliquis Dispo - Likely discharge tomorrow Visit type - Emergency Visit Emergency Visit: Yes ED Registration Date: 12/28/19 Care time: The patient presented to the Emergency Department on the above date and was hospitalized for further evaluation of their emergent condition. - New Patient This patient is new to me today: No - Critical Care Critical Care patient: No - Discharge Referral Referred to [facility] Med P.C.: No - Medication Review Med list reviewed for High Risk Meds patients 65 and older: Yes ATTENDING PHYSICIAN STATEMENT I saw and evaluated the patient. I reviewed the resident's note and discussed the case with the resident. I agree with the resident's findings and plan as documented. SUBJECTIVE: OBJECTIVE: ASSESSMENT AND PLAN:
[2019-12-31] MEDS: ATORVASTATIN CA 10 MG TABLET (FP) PO SCH (21:00)
[2020-01-01 07:09] LABS: BLOOD UREA NITROGEN 20.5 mg/dL (7-18); CALCIUM 9.9 mg/dL (8.5-10.1); CREATININE 0.6 mg/dL (0.55-1.3); POTASSIUM 4.2 mmol/L (3.5-5.1)
--- NOTE | 2020-01-01 07:43 | PN ---
Progress Note, Physician History of Present Illness: PULMONARY ALERT,COMFORTABLE NO DISTRESS,-SOB - Current Medication List Current Medications: Active Medications Acetaminophen (Tylenol -) 1,000 mg PO Q8H PRN PRN Reason: PAIN LEVEL 7 - 10 Last Admin: 12/30/19 23:23 Dose: 1,000 mg Documented by: Apixaban (Eliquis -) 5 mg PO BID [facility] Last Admin: 12/31/19 21:00 Dose: 5 mg Documented by: Atorvastatin Calcium (Lipitor -) 10 mg PO HS [facility] Last Admin: 12/31/19 21:00 Dose: 10 mg Documented by: Cholecalciferol (Vitamin D3 -) 2,000 unit PO DAILY [facility] Last Admin: 12/31/19 09:08 Dose: 2,000 unit Documented by: Diltiazem HCl (Cardizem Cd -) 240 mg PO DAILY [facility] Last Admin: 12/31/19 09:08 Dose: 240 mg Documented by: Furosemide (Lasix Injection -) 40 mg IVPUSH DAILY [facility] Last Admin: 12/31/19 09:08 Dose: 40 mg Documented by: Polyethylene Glycol (Miralax (For Daily Use) -) 17 gm PO DAILY [facility] Last Admin: 12/31/19 16:14 Dose: 17 gm Documented by: Sertraline HCl (Zoloft -) 50 mg PO DAILY [facility] Last Admin: 12/31/19 09:08 Dose: 50 mg Documented by: - Objective Vital Signs: Vital Signs Temperature 98 F 01/01/20 05:59 Pulse Rate 88 01/01/20 05:59 Respiratory Rate 20 01/01/20 05:59 Blood Pressure 147/61 01/01/20 05:59 O2 Sat by Pulse Oximetry (%) 95 01/01/20 05:59 Constitutional: Yes: Well Nourished, Calm Eyes: Yes: WNL HENT: Yes: WNL Neck: Yes: WNL Cardiovascular: Yes: Pulse Irregular, S1, S2 Respiratory: Yes: Diminished Gastrointestinal: Yes: Normal Bowel Sounds, Soft Extremities: Yes: WNL Edema: No Labs: CBC, BMP 01/01/20 05:40 INR, PTT INR 1.11 (0.83-1.09) H 12/29/19 01:30 Problem List - Problems (1) Atrial fibrillation Code(s): I48.91 - UNSPECIFIED ATRIAL FIBRILLATION Qualifiers: Atrial fibrillation type: unspecified Qualified Code(s): I48.91 - Unspecified atrial fibrillation (2) CHF (congestive heart failure) Code(s): I50.9 - HEART FAILURE, UNSPECIFIED Qualifiers: Heart failure type: unspecified Heart failure chronicity: acute Qualified Code(s): I50.9 - Heart failure, unspecified (3) Hypoxia Code(s): R09.02 - HYPOXEMIA (4) SOB (shortness of breath) Code(s): R06.02 - SHORTNESS OF BREATH (5) CAD (coronary artery disease) Code(s): I25.10 - ATHSCL HEART DISEASE OF [place] CORONARY ARTERY W/O ANG PCTRS (6) HLD (hyperlipidemia) Code(s): E78.5 - HYPERLIPIDEMIA, UNSPECIFIED (7) HTN (hypertension) Code(s): I10 - ESSENTIAL (PRIMARY) HYPERTENSION (8) Lung cancer Code(s): C34.90 - MALIGNANT NEOPLASM OF UNSP PART OF UNSP BRONCHUS OR LUNG (9) Uterine cancer Code(s): C55 - MALIGNANT NEOPLASM OF UTERUS, PART UNSPECIFIED Assessment/Plan IMP ACUTE RESPIRATORY FAILURE IMPROVED ACUTE ON CHRONIC CHF IMPROVED AFIB WITH RVR H/O LUNG CA S/P L PNEUMONECTOMY H/O UTERINE CA HTN HLD RLL NODULE R/O MALIGNANT GERD PULMONARY HTN PLAN SUPPLEMENTAL O2 NIPPV NEEDED LASIX RATE CONTROL DAILY WTS AC PET SCAN OUTPATIENT DR KRAUS Problem List - Problems (1) Atrial fibrillation Code(s): I48.91 - UNSPECIFIED ATRIAL FIBRILLATION Qualifiers: Atrial fibrillation type: unspecified Qualified Code(s): I48.91 - Unspecified atrial fibrillation (2) CHF (congestive heart failure) Code(s): I50.9 - HEART FAILURE, UNSPECIFIED Qualifiers: Heart failure type: unspecified Heart failure chronicity: acute Qualified Code(s): I50.9 - Heart failure, unspecified (3) Hypoxia Code(s): R09.02 - HYPOXEMIA (4) SOB (shortness of breath) Code(s): R06.02 - SHORTNESS OF BREATH (5) CAD (coronary artery disease) Code(s): I25.10 - ATHSCL HEART DISEASE OF [place] CORONARY ARTERY W/O ANG PCTRS (6) HLD (hyperlipidemia) Code(s): E78.5 - HYPERLIPIDEMIA, UNSPECIFIED (7) HTN (hypertension) Code(s): I10 - ESSENTIAL (PRIMARY) HYPERTENSION (8) Lung cancer Code(s): C34.90 - MALIGNANT NEOPLASM OF UNSP PART OF UNSP BRONCHUS OR LUNG (9) Uterine cancer Code(s): C55 - MALIGNANT NEOPLASM OF UTERUS, PART UNSPECIFIED
[2020-01-01] MEDS: FUROSEMIDE 40 MG/4 ML INJECTABLE VIAL IVPUSH SCH (09:41)
[2020-01-01] MEDS: CHOLECALCIFEROL (VIT D3) 1,000 UNIT (25 MCG) TABLET PO SCH (09:44)
[2020-01-01] MEDS: SERTRALINE HCL 50 MG TABLET (FP) PO SCH (09:44)
[2020-01-01] MEDS: APIXABAN 5 MG TABLET PO SCH (09:44)
[2020-01-01] MEDS: POLYETHYLENE GLYCOL 3350 119 GM BTL PO SCH (09:45)
--- NOTE | 2020-01-01 12:52 | PN ---
Progress Note (short form) - Note Progress Note: cc: dyspnea s: sob improving Current Medications Generic Name Dose Route Start Last Admin Trade Name Jeannette PRN Reason Stop Dose Admin Acetaminophen 1,000 mg 12/28/19 17:59 12/30/19 23:23 Tylenol - PO 1,000 mg Q8H PRN Administration PAIN LEVEL 7 - 10 Apixaban 5 mg 12/29/19 12:15 01/01/20 09:44 Eliquis - PO 5 mg BID HI Administration Atorvastatin Calcium 10 mg 12/28/19 22:00 12/31/19 21:00 Lipitor - PO 10 mg HS HI Administration Cholecalciferol 2,000 unit 12/29/19 10:00 01/01/20 09:44 Vitamin D3 - PO 2,000 unit DAILY [facility] Administration Diltiazem HCl 240 mg 12/29/19 10:00 01/01/20 09:44 Cardizem Cd - PO 240 mg DAILY [facility] Administration Furosemide 40 mg 12/29/19 10:00 01/01/20 09:41 Lasix Injection - IVPUSH 40 mg DAILY HI Administration Polyethylene Glycol 17 gm 12/31/19 15:30 01/01/20 09:45 Miralax (For Daily Use) - PO 17 gm DAILY [facility] Administration Sertraline HCl 50 mg 12/29/19 10:00 01/01/20 09:44 Zoloft - PO 50 mg DAILY [facility] Administration Vital Signs Period Temp Pulse Resp BP Sys/Santa Pulse Ox Last 24 Hr 97.8 F-99.0 F 87-98 18-20 111-170/55-78 95-98 Constitutional: Yes: No Distress Cardiovascular: Yes: Pulse Irregular Respiratory: Yes: CTA Bilaterally Gastrointestinal: Yes: Soft Edema: No Neurological: Yes: Alert, Oriented no jaundice, diaphoresis not agitated Assessment/Plan DATA: CTA chest: no PE, s/p L side pneumonectomy, mild interstitial pulmonary vascular congestion with associated small right pleural effusion, cardiomegaly, pulm nodule echo 01/2019 nl LV/RV function, LA mildly dilated, mod to severe MAC, mod to severe MR, mod to severe TR, PASP at least 39 mmHg mibi 01/2019 med sized, mild severity reversible defect in mid anterior wall and small fixed defect in mid inferior wall with mild marylou-infarct ischemia, nl wall motion tele: afib, rate controlled IMP/PLAN: 79f h/o CAD s/p PCI, hx lung cancer s/p resection p/w palpitations, dyspnea, new afib, CHF afib: - cont cardizem, rate controlled - echo with normal biV fxn, mod-severe MR/mod TR and mod - started eliquis 5 mg BID (age >80, however Cr <1.5 and wt >60 kg) -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 If it settles at < 60kg then would adjust dose to 2.5mg BID acute on chronic diastolic HF: - repeat echo shows normal biV fx, moderate to severe MR which may improve w/ optimized volume status. - repeat CXR not changed, however symptoms improving with IV lasix - cont IV lasix - daily chem7, wts HTN: - cont cardizem HLD: - cont statin CAD: - cont statin, dc aspirin, starting AC as above history of lung cancer: - manage per primary
--- NOTE | 2020-01-01 14:37 | DS ---
Physical Exam: SUBJECTIVE: Patient seen and examined and agree with above OBJECTIVE: Vital Signs Period Temp Pulse Resp BP Sys/Santa Pulse Ox Last 24 Hr 97.8 F-99.0 F 87-98 18- 111-170/ 95-98 PHYSICAL EXAM GENERAL: The patient is awake, alert, and fully oriented, in no acute distress. HEAD: Normal with no signs of trauma. EYES: PERRL, extraocular movements intact, sclera anicteric, conjunctiva clear. ENT: Ears normal, nares patent, oropharynx clear without exudates, moist mucous membranes. NECK: Trachea midline, full range of motion, supple. LUNGS: Breath sounds equal, clear to auscultation bilaterally, no wheezes, no crackles, no accessory muscle use. HEART: Regular rate and rhythm, S1, S2 without murmur, rub or gallop. ABDOMEN: Soft, nontender, nondistended, normoactive bowel sounds, no guarding, no rebound, no hepatosplenomegaly, no masses. EXTREMITIES: 2+ pulses, warm, well-perfused, no edema. NEUROLOGICAL: Cranial nerves II through XII grossly intact. Normal speech, gait not observed. LABS Laboratory Results - last 24 hr 01/01/20 05:40 Sodium 139 Potassium 4.2 Chloride 99 Carbon Dioxide 38 H Anion Gap 2 L BUN 20.5 H Creatinine 0.6 Est GFR (CKD-EPI)AfAm 99.07 Est GFR (CKD-EPI)NonAf 85.48 Random Glucose 95 Calcium 9.9 HOSPITAL COURSE: Date of Admission:12/28/19 Date of Discharge: 01/01/20 patient to go home and will f/u with dr heredia for lung nodule <Lauryn Syed - Last Filed: 01/01/20 15:15> Physical Exam: SUBJECTIVE: Patient seen and examined. She denies chest pain, shortness of breath and is eager to go home. OBJECTIVE: Vital Signs Period Temp Pulse Resp BP Sys/Santa Pulse Ox Last 24 Hr 97.8 F-99.0 F 87-98 18- 111-170/61-78 95-98 PHYSICAL EXAM GENERAL: The patient is awake, alert, and fully oriented, in no acute distress. HEAD: Normal with no signs of trauma. EYES: PERRL, extraocular movements intact, conjunctiva clear. ENT: Ears normal, nares patent, moist mucous membranes. NECK: Trachea midline, full range of motion. LUNGS: Right lung clear to auscultation, no wheezing or crackles. HEART: Regular rate, irregular rhythm, no murmur appreciated. ABDOMEN: Soft, nontender, nondistended, normoactive bowel sounds. EXTREMITIES: Warm, well-perfused, no edema. NEUROLOGICAL: Cranial nerves II through XII grossly intact. Normal speech. PSYCH: Normal mood, normal affect. SKIN: Warm, dry, normal turgor. LABS Laboratory Results - last 24 hr 01/01/20 05:40 Sodium 139 Potassium 4.2 Chloride 99 Carbon Dioxide 38 H Anion Gap 2 L BUN 20.5 H Creatinine 0.6 Est GFR (CKD-EPI)AfAm 99.07 Est GFR (CKD-EPI)NonAf 85.48 Random Glucose 95 Calcium 9.9 HOSPITAL COURSE: Pt is an 79 y/o with PMH of Uterine CA (resection 40 years ago), Lung CA (resection 30 years ago), CAD (2x stents 4-5 years ago, not on AC), HTN, and HLD presented to the ER with 4 days of SOB with acutely worsening SOB, palpitations, and nausea. She was found to be in a-fib with RVR on EKG and tele monitoring, requiring O2 and short-term bipap. CTA was negative for PE but nonspecific 1.7 x 1.3 cm right lower lobe pulmonary nodule was found and small pleural effusion. Echo showed b/l atrial enlargement, moderate to severe MR, moderate TR and . She was given IV and later PO lasix with improvement in breathing to the point of no supplemental oxygen requirement. She was started on Eliquis 5mg BID for CHADsVASC2 =5. On day of discharge, pt was still in a-fib but was not in RVR so no rate controlling drugs were prescribed. She was instructed to follow up with pulm and onc for pulmonary nodule workup and cards for a-fib management. Date of Admission:12/28/19 Date of Discharge: 01/01/20 Minutes to complete discharge: 35 <Allie Gray - Last Filed: 01/01/20 17:15> Discharge Summary Current Active Problems Atrial fibrillation (Acute) CHF (congestive heart failure) (Acute) Hypoxia (Acute) SOB (shortness of breath) (Acute) - Home Medications Comprehensive Discharge Medication List: Ambulatory Orders Acetaminophen [Tylenol .Extra-Strength -] 1,000 mg PO Q8H PRN 04/26/18 Atorvastatin Ca [Lipitor] 10 mg PO HS 04/26/18 Cholecalciferol (Vitamin D3) [Vitamin D3] 2,000 unit PO DAILY 04/26/18 Loratadine [Claritin] 10 mg PO DAILY PRN 04/26/18 Sertraline HCl [Zoloft -] 50 mg PO DAILY 04/26/18 Diltiazem Cd [Cardizem Cd -] 240 mg PO DAILY cap.cd.24h 02/10/19 Benazepril HCl 40 mg PO DAILY 12/29/19 Apixaban [Eliquis -] 5 mg PO BID #60 tablet 01/01/20 <Lauryn Syed - Last Filed: 01/01/20 15:15> Problems reviewed: Yes Current Active Problems Atrial fibrillation (Acute) CHF (congestive heart failure) (Acute) Hypoxia (Acute) SOB (shortness of breath) (Acute) - Home Medications Comprehensive Discharge Medication List: Ambulatory Orders Acetaminophen [Tylenol .Extra-Strength -] 1,000 mg PO Q8H PRN 04/26/18 Atorvastatin Ca [Lipitor] 10 mg PO HS 04/26/18 Cholecalciferol (Vitamin D3) [Vitamin D3] 2,000 unit PO DAILY 04/26/18 Loratadine [Claritin] 10 mg PO DAILY PRN 04/26/18 Sertraline HCl [Zoloft -] 50 mg PO DAILY 04/26/18 Diltiazem Cd [Cardizem Cd -] 240 mg PO DAILY cap.cd.24h 02/10/19 Benazepril HCl 40 mg PO DAILY 12/29/19 Apixaban [Eliquis -] 5 mg PO BID #60 tablet 01/01/20 <Allie Gray - Last Filed: 01/01/20 17:15> Reason For Visit: SOB Condition: Improved - Instructions Diet, Activity, Other Instructions: Your Visit: You were admitted to the hospital with shortness of breath and palpitations. You were found to have an irregular heartbeat (atrial fibrillation) and extra fluid in your body. You were given a medicine to help prevent blood clots because this heartbeat puts you at higher risk of stroke and you were given diuretics to help get rid of excess fluid. You are now stable to go home. A CAT scan of your chest showed a lung nodule that Dr. Heredia needs to see you as an outpatient to further diagnose. Medications: START Eliquis 5mg twice a day STOP Aspirin Continue your other home medications as usual Follow Up: Dr. Colindres, primary care, in [address] Rendon, cardiology, in [address] Heredia, pulmonology, as soon as possible. Dr. Winston, oncology, as soon as possible. She worked with Dr. Reyes and may have your old records. Other Instructions: Call 911 or return to the emergency room if you develop shortness of breath or palpitations again, or if you get chest pain or pressure. Monitor the swelling in your legs. If you notice a large increase, you should call Dr. Colindres immediately. This means the fluid could be coming back, and you may need diuretics again. Referrals: Robert Heredia MD [Staff Physician] - George Colindres MD [Primary Care Provider] - Marco Rendon MD [Staff Physician] - Ila Winston MD [Staff Physician] - Disposition: HOME This patient is new to me today: Yes Date on this admission: 01/01/20 Emergency Visit: Yes ED Registration Date: 12/28/19 Care time: The patient presented to the Emergency Department on the above date and was hospitalized for further evaluation of their emergent condition. Critical Care patient: No - Discharge Referral Referred to [facility] No <Allie Gray - Last Filed: 01/01/20 17:15> ATTENDING PHYSICIAN STATEMENT I saw and evaluated the patient. I reviewed the resident's note and discussed the case with the resident. I agree with the resident's findings and plan as documented. SUBJECTIVE: OBJECTIVE: ASSESSMENT AND PLAN: <Lauryn Syed - Last Filed: 01/01/20 15:15> ATTENDING PHYSICIAN STATEMENT I saw and evaluated the patient. I reviewed the resident's note and discussed the case with the resident. I agree with the resident's findings and plan as documented. SUBJECTIVE: OBJECTIVE: ASSESSMENT AND PLAN: <Allie Gray - Last Filed: 01/01/20 17:15>
[2020-01-01 15:29] VITALS: BP 107/58; PULSE 82; TEMP 98.7
== END 2020-01-01 15:57 | disposition home or self-care (01) | DRG 291 ==
LOC: JER 09:46 → JERBED 16:47 → J4W 12-29 01:08
PROVIDERS: ADMIT Internal Medicine; ATTEND Internal Medicine
DX: I11.0 Hypertensive heart disease with heart failure (principal); J96.00 Acute respiratory failure, unspecified whether with hypoxia or hypercapnia; I25.10 Atherosclerotic heart disease of native coronary artery without angina pectoris; I50.33 Acute on chronic diastolic (congestive) heart failure; K21.9 Gastro-esophageal reflux disease without esophagitis; E78.5 Hyperlipidemia, unspecified; I48.91 Unspecified atrial fibrillation; Z85.42 Personal history of malignant neoplasm of other parts of uterus; Z85.118 Personal history of other malignant neoplasm of bronchus and lung; Z87.891 Personal history of nicotine dependence; R91.1 Solitary pulmonary nodule; I27.20 Pulmonary hypertension, unspecified; I36.1 Nonrheumatic tricuspid (valve) insufficiency
CPT/HCPCS: 36415; 71045-TC-FY; 71275-TC; 80048; 80053; 81003; 82550; 83735; 83880; 84100; 84443; 84484; 85025; 85027; 85610; 85730; 93005; 93010; 93306-TC; 97116-GP; 97161-GP; 99285-25; Q9967; U0003

== ENCOUNTER 2020-01-06 08:00 | Inpatient (IN) | payer OTHER ==
[2020-01-06] MEDS ORDERED: FUROSEMIDE 40 MG/4 ML INJECTABLE VIAL IVPUSH ONE (08:11)
[2020-01-06] MEDS ORDERED: ASPIRIN 81 MG CHEWABLE TABLETS PO ONE (08:16)
--- NOTE | 2020-01-06 08:17 | PDOC ---
History of Present Illness - General Chief Complaint: Shortness of Breath Stated Complaint: sob Time Seen by Provider: 01/06/20 08:05 History Source: Patient Exam Limitations: No Limitations - History of Present Illness Initial Comments: 01/06/20 08:10 [id number] with h/o CHF, endometrial and lung CA (s/p lect lung resection), CAD, stents x2, GERD, diverticulitis, HTN,and HLD, who was just discharged from [facility] where she had been admitted with new onset A-fib and fluid overload, after presenting with the same symptoms as today per her report. She had chest CT PE protocol which was negative for PE, but new nodule was detected in the lung, and she was scheduled to f/u with Dr. Heredia this morning but her daughter brought here here to the ED instead. The patient has not been on Lasix at home. Denies f/c/n/v/d/c, chest pain, lightheadedness, abdominal pain, back pain, etc. She w as feeling well until early this morning. Past History - Medical History Allergies/Adverse Reactions: Allergies Allergy/AdvReac Type Severity Reaction Status Date / Time No Known Allergies Allergy Verified 01/06/20 09:11 Home Medications: Ambulatory Orders Acetaminophen [Tylenol .Extra-Strength -] 1,000 mg PO Q8H PRN 04/26/18 Atorvastatin Ca [Lipitor] 10 mg PO HS 04/26/18 Cholecalciferol (Vitamin D3) [Vitamin D3] 2,000 unit PO DAILY 04/26/18 Loratadine [Claritin] 10 mg PO DAILY PRN 04/26/18 Sertraline HCl [Zoloft -] 50 mg PO DAILY 04/26/18 Diltiazem Cd [Cardizem Cd -] 240 mg PO DAILY cap.cd.24h 02/10/19 Benazepril HCl 40 mg PO DAILY 12/29/19 Apixaban [Eliquis -] 5 mg PO BID #60 tablet 01/01/20 Anemia: No Asthma: No Cancer: Yes (UTERUS/LUNG) Cardiac Disorders: Yes (CAD,stents x2) CVA: No COPD: No CHF: No Dementia: No Diabetes: No (BORDERLINE- DIET CONTROLLED) GI Disorders: Yes (GERD DIVERTICULITIS) Disorders: No HTN: Yes Hypercholesterolemia: Yes Liver Disease: No Seizures: No Thyroid Disease: No - Surgical History Abdominal Surgery: Yes Appendectomy: No Cardiac Surgery: No (Angioplasty with Stents 09/2014) Cholecystectomy: Yes Lung Surgery: Yes (Left Lobectomy) Neurologic Surgery: No Orthopedic Surgery: No - Immunization History Td Vaccination: (UNKNOWN) Immunization Up to Date: Yes - Psycho-Social/Smoking History Smoking Status: No Smoking History: Never smoked Have you smoked in the past 12 months: No Number of Cigarettes Smoked Daily: 0 If you are a former smoker, when did you quit?: 20 YEARS AGO Review of Systems - Review of Systems Able to Perform ROS?: Yes Comments:: 01/06/20 08:45 GEN: no fever, chills, or malaise HEENT: no ear pain, congestion, sore throat, vision change, or eye pain CV: palpitations, edema, no chest pain, lightheadedness, or syncope RESP: SOB, orthopnea, no wheezing, or cough GI: no abdominal pain, nausea, vomiting, diarrhea, constipation, or rectal bleed : no dysuria, hematuria, or discharge MSK: no muscle weakness or pain, no joint swelling or pain NEURO: no headache, vertigo, numbness, tingling, or focal weakness PSYCH: no SI, HI, or behavior change SKIN: no jaundice, rash, lesions, or unexplained bruises ROS otherwise negative except as noted in HPI *Physical Exam - Vital Signs Initial Vital Signs Temp Pulse Resp BP Pulse Ox 99.2 F 86 20 163/89 98 01/06/20 08:01 01/06/20 08:01 01/06/20 08:01 01/06/20 08:01 01/06/20 08:01 - Physical Exam 01/06/20 13:21 GENERAL: elderly, nontoxic-appearing, moderate distress on moving/repositioning, otherwise mild distress, answers questions appropriately with 3-word sentences, accompanied by daughter at bedside HEENT: PERRLA, EOMI, moist mucous membranes NECK/BACK: no midline ttp, no spinal stepoff or deformity, no hematoma, full ROM, neck supple CARDIOVASCULAR: irregularly irregular and initially mildly tachycardic, 3/6 systolic ejection murmur, strong peripheral pulses, capillary refill <2 seconds, extremities wwp, BLE non-pitting edema with trace pitting LUNGS/RESPIRATORY: mild-moderate respiratory distress, tachypneic, 3 word sentences initially, prefers sitting up, lung sounds significantly diminished on the left stated normal baseline from her lung resection, right lung with mild expiratory wheezed and diffuse crackles worse at base GI/ABDOMEN: symmetric ktte-or-haay, normoactive BS, soft, no ttp, no midline pulsatile masses : no CVA tenderness MSK/EXTREMITIES: no acute-appearing muscle atrophy, no acute deformity DERM/SKIN: warm and dry, no pallor, no jaundice, no rash, no pathologic- appearing bruising, no skin breakdown, no cuts, no lesions NEUROLOGICAL: GCS 15, CN II-XII grossly intact, 5/5 strength proximally and distally, no facial droop Heart Score/ECG Review #1 01/06/20 08:09 A-fib with rate 104, normal axis, TWI and TW depressions in II, aVF, and V5/6 which are OLD compared with prior EKG. ED Treatment Course - LABORATORY CBC & Chemistry Diagram: 01/06/20 08:39 01/06/20 08:52 - RADIOLOGY Radiology Studies Ordered: Category Date Time Status CXRPORT [CHEST X-RAY PORTABLE*] [RAD] Stat Radiology 01/06/20 08:07 Ordered Medical Decision Making - Medical Decision Making 01/06/20 08:18 79YOF with h/o CHF, lung resection, A-fib on Eliquis (newly diagnosed), new lung nodule on CT days ago, and recent admission for new onset A-fib with RVR, who p/w SOB and rapid/irregular palpitations. Initial Vital Signs Temp Pulse Resp BP Pulse Ox 99.2 F 86 20 163/89 98 01/06/20 08:01 01/06/20 08:01 01/06/20 08:01 01/06/20 08:01 01/06/20 08:01 DDX IBNLT: CHF, pulmonary edema, COPD, asthma, other lung disease, PNA/bronchitis, anemia, ACS, pericarditis, tamponade, AD, PE, PTX, allergic reaction, malignancy (e.g. causing pericardial effusion or vascular shunt), other infection, pulmonary HTN, etc. W/U ordered: CBCD CMP Mg Phos Troponin CK CKMB BNP Blood Gas UA UCx EKG CXR TX ordered: Lasix IV push, O2, Pt positioned with head of bed up EKG: Reviewed; results as noted in ECG Review section. CXR: Right basilar atelectasis and pulmonary vascular congestion but otherwise no acute changes. Left lung surgically absent. Provider Orders Category Date Time Status TYPE AND SCREEN Stat Blood Bank 01/06/20 08:49 Results ELECTROCARDIOGRAM [CARD] Stat Cardiology 01/06/20 08:07 Ordered Cardiac Monitoring Continuous Care 01/06/20 08:07 Active EKG needed NOW Care 01/06/20 08:07 Completed Paiz Catheter, Daily Care DAILY Care 01/06/20 08:13 Active Paiz Catheter, Insert ONCE Care 01/06/20 08:12 Completed Isolation Precautions As directed Care 01/06/20 08:14 Active ACTIVATED PTT Stat Lab 01/06/20 08:16 Completed CARDIAC PROFILE (ONLY [facility]) Stat Lab 01/06/20 08:52 Results CBC WITH DIFFERENTIAL Stat Lab 01/06/20 08:39 Completed COMP METABOLIC PANEL Stat Lab 01/06/20 08:52 Results COVID-19 Stat Lab 01/06/20 08:14 Ordered FREE T3 Stat Lab 01/06/20 08:49 Received FREE T4 Stat Lab 01/06/20 08:52 Results MAGNESIUM Stat Lab 01/06/20 08:52 Results N-TERMINAL BNP Stat Lab 01/06/20 08:52 Results PHOSPHOROUS Stat Lab 01/06/20 08:52 Results PT/INR (PROTHROMBIN TIME) Stat Lab 01/06/20 08:16 Completed THYROID STIMULATING HORMONE Stat Lab 01/06/20 08:52 Results UA ([facility] ONLY) Stat Lab 01/06/20 09:02 Results URINE MICROSCOPIC (DAO) Stat Lab 01/06/20 09:02 Results Aspirin [ASA -] Medication 01/06/20 08:16 Stop Req 324 mg PO ONCE ONE Furosemide Injection [Lasix Injection -] Medication 01/06/20 08:25 Discontinue d 40 mg .ROUTE .STK-MED ONE Furosemide Injection [Lasix Injection -] Medication 01/06/20 08:11 Discontinued 40 mg IVPUSH ONCE ONE Urine Culture [URINE CULTURE] Stat Micro 01/06/20 08:48 Received IV Insert NOW Phy Order 01/06/20 08:07 Completed Saline Lock, Insert ONCE Phy Order 01/06/20 08:15 Ordered CXRPORT [CHEST X-RAY PORTABLE*] [RAD] Stat Radiology 01/06/20 08:07 Completed Medications Discontinued Medications Generic Name Dose Route Start Last Admin Trade Name Jeannette PRN Reason Stop Dose Admin Aspirin 324 mg 01/06/20 08:16 Asa - PO 01/06/20 08:17 ONCE ONE Furosemide 40 mg 01/06/20 08:11 Lasix Injection - IVPUSH 01/06/20 08:12 ONCE ONE Furosemide Confirm 01/06/20 08:25 Lasix Injection - Administered 01/06/20 08:26 Dose 40 mg .ROUTE .STK-MED ONE Lab Results WBC 8.7 K/mm3 (4.0-10.8) 01/06/20 08:39 RBC 3.85 M/mm3 (3.60-5.2) 01/06/20 08:39 Hgb 11.5 GM/dl (10.7-15.3) 01/06/20 08:39 Hct 35.8 % (32.4-45.2) 01/06/20 08:39 MCV 93.0 fl (80-96) 01/06/20 08:39 MCH 30.0 pg (25.7-33.7) 01/06/20 08:39 MCHC 32.2 g/dl (32.0-36.0) 01/06/20 08:39 RDW 14.0 % (11.6-15.6) 01/06/20 08:39 Plt Count 271 K/MM3 (134-434) 01/06/20 08:39 MPV 10.3 fl (7.5-11.1) 01/06/20 08:39 Absolute Neuts (auto) 6.7 K/mm3 01/06/20 08:39 Neutrophils % 77.0 % (42.8-82.8) 01/06/20 08:39 Lymphocytes % 16.5 % (8-40) 01/06/20 08:39 Monocytes % 4.2 % (3.8-10.2) 01/06/20 08:39 Eosinophils % 1.7 % (0-4.5) 01/06/20 08:39 Basophils % 0.6 % (0-2.0) 01/06/20 08:39 PT with INR 21.6 SEC (10.2-13.0) H 01/06/20 08:16 INR 1.95 (0.82-1.09) H 01/06/20 08:16 PTT (Actin FS) 32.6 SECONDS (25.2-36.5) 01/06/20 08:16 Sodium 139 mmol/L (136-145) 01/06/20 08:52 Potassium 4.2 mmol/L (3.5-5.1) 01/06/20 08:52 Chloride 102 mmol/L (98-107) 01/06/20 08:52 Carbon Dioxide 25 mmol/L (21-32) 01/06/20 08:52 Anion Gap 12 MMOL/L (8-16) 01/06/20 08:52 BUN 22.0 mg/dl (7-18) H 01/06/20 08:52 Creatinine 0.6 mg/dl (0.55-1.3) 01/06/20 08:52 Est GFR (CKD-EPI)AfAm 99.07 01/06/20 08:52 Est GFR (CKD-EPI)NonAf 85.48 01/06/20 08:52 Random Glucose 121 mg/dl (74-106) H 01/06/20 08:52 Calcium 9.8 mg/dl (8.5-10) 01/06/20 08:52 Phosphorus Cancelled 01/06/20 08:49 Magnesium 1.9 mg/dL (1.8-2.4) 01/06/20 08:52 Total Bilirubin 0.6 mg/dl (0.2-1) 01/06/20 08:52 AST 21 U/L (15-37) 01/06/20 08:52 ALT 14 U/L (13-61) 01/06/20 08:52 Alkaline Phosphatase 88 U/L (45-117) 01/06/20 08:52 Creatine Kinase 35 U/L (26-192) 01/06/20 08:52 Troponin I < 0.03 ng/ml (0.00-0.05) 01/06/20 08:16 Total Protein 7.1 g/dl (6.4-8.2) 01/06/20 08:52 Albumin 3.8 g/dl (3.4-5.0) 01/06/20 08:52 Free T4 Cancelled 01/06/20 08:49 Urine Color Yellow 01/06/20 09:02 Urine Appearance Clear 01/06/20 09:02 Urine pH 6.5 (4.5-8) 01/06/20 09:02 Urine Protein Negative (NEGATIVE) 01/06/20 09:02 Urine Glucose (UA) Negative (NEGATIVE) 01/06/20 09:02 Urine Ketones Negative (NEGATIVE) 01/06/20 09:02 Urine Blood Trace-intact (NEGATIVE) 01/06/20 09:02 Urine Nitrite Negative (NEGATIVE) 01/06/20 09:02 Urine Bilirubin Negative (NEGATIVE) 01/06/20 09:02 Urine Urobilinogen 0.2 (0.2-1.0) 01/06/20 09:02 Ur Leukocyte Esterase Negative (NEGATIVE) 01/06/20 09:02 The Pt is unsafe for discharge at this time. They require further hospital observation, workup, and treatment. Pt needs IV meds 2/2 likely bowel edema as PO medications likely less effective. Microblog sent to [facility] for admission. 01/06/20 09:23 Patient feels much better at this time, speaking full sentences, no tachypneic, HR in the 80s still in A-fib, SpO2 99%. Pending remainder of lab work and Chest CTA and she will be admitted to [facility] Tele. 01/06/20 09:45 Cancelled CTA as patient had one a week ago and she is able to tell us her sxs were the same at that time. Patient also improved with Lasix, has normal SpO2 and heart rate at this time. Microblog sent for admission to [facility]. Discharge - Discharge Information Problems reviewed: Yes Clinical Impression/Diagnosis: CHF (congestive heart failure) Qualifiers: Heart failure type: unspecified Heart failure chronicity: unspecified Qualified Code(s): I50.9 - Heart failure, unspecified Atrial fibrillation Qualifiers: Atrial fibrillation type: unspecified Qualified Code(s): I48.91 - Unspecified atrial fibrillation Condition: Guarded - Admission Yes - Follow up/Referral - Patient Discharge Instructions - Post Discharge Activity
[2020-01-06] MEDS ORDERED: FUROSEMIDE 40 MG/4 ML INJECTABLE VIAL ONE (08:25)
[2020-01-06 08:50] LABS: BASO % 0.6 % (0-2.0); EOS % 1.7 % (0-4.5); HEMATOCRIT 35.8 % (32.4-45.2); HEMOGLOBIN 11.5 GM/dl (10.7-15.3); LYMPH % 16.5 % (8-40); MCHC 32.2 g/dl (32.0-36.0); MEAN PLT VOLUME 10.3 fl (7.5-11.1); MONO % 4.2 % (3.8-10.2); PLATELET COUNT 271 K/MM3 (134-434); RBC 3.85 M/mm3 (3.60-5.2); WHITE BLOOD COUNT 8.7 K/mm3 (4.0-10.8)
[2020-01-06 09:11] LABS: ALBUMIN 3.8 g/dl (3.4-5.0); BILIRUBIN,TOTAL 0.6 mg/dl (0.2-1); CALCIUM 9.8 mg/dl (8.5-10); CREATININE 0.6 mg/dl (0.55-1.3); MAGNESIUM 1.9 mg/dL (1.8-2.4); POTASSIUM 4.2 mmol/L (3.5-5.1); TOT PROT 7.1 g/dl (6.4-8.2)
[2020-01-06 09:12] LABS: ACTIVATED PTT 32.6 SECONDS (25.2-36.5)
[2020-01-06 09:16] LABS: INR 1.95 (0.82-1.09); PROTHROMBIN TIME (PATIENT) 21.6 SEC (10.2-13.0)
[2020-01-06 09:54] LABS: EPITHELIAL CELLS FEW /hpf
[2020-01-06 09:54] LABS: N-TERMINAL BNP 3616.8 pg/ml (5-450); PHOSPHOROUS 3.4 mg/dL (2.5-4.9)
[2020-01-06 13:34] VITALS: BMI 29.4
--- NOTE | 2020-01-06 13:52 | HP ---
CHIEF COMPLAINT: Shortness of breath PCP: Bernadine Cardiology: Justcie HISTORY OF PRESENT ILLNESS: 79 year-old female with a PMH significant for HTN, HLD, CAD s/p stents x 2, atrial fibrillation on Eliquis (diagnosed two weeks ago), diastolic heart failure, and lung cancer s/p left pneumonectomy. Admitted to [facility] 12/27-01/01/20 for hypoxic respiratory failure secondary to newly diagnosed atrial fibrillation and volume overload. She was diuresed and started on Eliquis. This morning patient awoke feeling SOB, the same way she felt prior to her previous admission. Her daughter brought her to the ED. Patient has not been on any diuretic since her discharge on 12/31. Denies chest pain, palpitations, diaphoresis, lightheadedness, ER course was notable for: (1) ECG: afib @ 103 (2) Lasix IVP 40mg x 1 -->1200cc's UOP Recent Travel: No PAST MEDICAL HISTORY: Hypertension Hyperlipidemia Coronary artery disease Atrial fibrillation (newly diagnosed one week ago) Diastolic heart failure Lung cancer Right lung nodule (newly diagnosed) Endometrial cancer GERD Diverticulitis PAST SURGICAL HISTORY: Left pneumonectomy Cardiac stents x 2 2015 Cholecystectomy Hysterectomy Social History: Smoking: Smoked in past. 30-40 pack year smoking history Alcohol: Denies Drugs: Denies Family history: reviewed and non-contributory Allergies No Known Allergies Allergy (Verified 01/06/20 09:11) HOME MEDICATIONS: Home Medications Medication Instructions Recorded Acetaminophen [Tylenol 1,000 mg PO Q8H PRN 04/26/18 .Extra-Strength -] Atorvastatin Ca [Lipitor] 10 mg PO HS 04/26/18 Cholecalciferol (Vitamin D3) 2,000 unit PO DAILY 04/26/18 [Vitamin D3] Loratadine [Claritin] 10 mg PO DAILY PRN 04/26/18 Sertraline HCl [Zoloft -] 50 mg PO DAILY 04/26/18 Diltiazem Cd [Cardizem Cd -] 240 mg PO DAILY cap.cd.24h 02/10/19 Benazepril HCl 40 mg PO DAILY 12/29/19 Apixaban [Eliquis -] 5 mg PO BID #60 tablet 01/01/20 REVIEW OF SYSTEMS CONSTITUTIONAL: Absent: fever, chills, diaphoresis, generalized weakness, malaise, loss of appetite, weight change HEENT: Absent: rhinorrhea, nasal congestion, throat pain, throat swelling, difficulty swallowing, mouth swelling, ear pain, eye pain, visual changes CARDIOVASCULAR: +SOB Absent: chest pain, syncope, palpitations, irregular heart rate, lightheadedness, peripheral edema RESPIRATORY: Absent: cough, shortness of breath, dyspnea with exertion, orthopnea, wheezing, stridor, hemoptysis GASTROINTESTINAL: Absent: abdominal pain, abdominal distension, nausea, vomiting, diarrhea, constipation, melena, hematochezia GENITOURINARY: Absent: dysuria, frequency, urgency, hesitancy, hematuria, flank pain, genital pain MUSCULOSKELETAL: Absent: myalgia, arthralgia, joint swelling, back pain, neck pain SKIN: Absent: rash, itching, pallor HEMATOLOGIC/IMMUNOLOGIC: Absent: easy bleeding, easy bruising, lymphadenopathy, frequent infections ENDOCRINE: Absent: unexplained weight gain, unexplained weight loss, heat intolerance, cold intolerance NEUROLOGIC: Absent: headache, focal weakness or paresthesias, dizziness, unsteady gait, seizure, mental status changes, bladder or bowel incontinence PSYCHIATRIC: Absent: anxiety, depression, suicidal or homicidal ideation, hallucinations. PHYSICAL EXAMINATION Vital Signs - 24 hr 01/06/20 01/06/20 01/06/20 08:01 08:13 10:53 Temperature 99.2 F Pulse Rate 86 86 Pulse Rate [ 76 Left Radial] Respiratory 20 Rate Blood Pressure 163/89 Blood Pressure 129/59 L [Right Arm] O2 Sat by Pulse 98 100 Oximetry (%) 01/06/20 13:08 Temperature Pulse Rate 59 L Pulse Rate [ Left Radial] Respiratory 20 Rate Blood Pressure 132/50 L Blood Pressure [Right Arm] O2 Sat by Pulse 100 Oximetry (%) GENERAL: Awake, alert, and fully oriented, in no acute distress. HEAD: Normal with no signs of trauma. EYES: Pupils equal, round and reactive to light, extraocular movements intact, sclera anicteric, conjunctiva clear. No lid lag. LUNGS: Breath sounds diminished on left; no accessory muscle use; no dyspnea with speaking, can complete full sentences HEART: Irregular, S1, S2 ABDOMEN: Soft, nontender, not distended UPPER EXTREMITIES: 2+ pulses, warm, well-perfused. No cyanosis. No clubbing. No peripheral edema. LOWER EXTREMITIES: 2+ pulses, warm, well-perfused. 2+ bilateral edema NEUROLOGICAL: Cranial nerves II-XII intact. Normal speech. Laboratory Results - last 24 hr 01/06/20 01/06/20 01/06/20 08:16 08:16 08:39 WBC 8.7 RBC 3.85 Hgb 11.5 Hct 35.8 MCV 93.0 MCH 30.0 MCHC 32.2 RDW 14.0 Plt Count 271 MPV 10.3 Absolute Neuts (auto) 6.7 Neutrophils % 77.0 Lymphocytes % 16.5 Monocytes % 4.2 Eosinophils % 1.7 Basophils % 0.6 PT with INR 21.6 H INR 1.95 H PTT (Actin FS) 32.6 Sodium Potassium Chloride Carbon Dioxide Anion Gap BUN Creatinine Est GFR (CKD-EPI)AfAm Est GFR (CKD-EPI)NonAf Random Glucose Calcium Phosphorus Magnesium Total Bilirubin AST ALT Alkaline Phosphatase Creatine Kinase Troponin I < 0.03 B-Natriuretic Peptide Total Protein Albumin TSH Free T4 Urine Color Urine Appearance Urine pH Urine Protein Urine Glucose (UA) Urine Ketones Urine Blood Urine Nitrite Urine Bilirubin Urine Urobilinogen Ur Leukocyte Esterase Urine RBC Urine WBC Ur Transition Epith Cell Urine Bacteria Blood Type Antibody Screen 01/06/20 01/06/20 01/06/20 08:49 08:49 08:52 WBC RBC Hgb Hct MCV MCH MCHC RDW Plt Count MPV Absolute Neuts (auto) Neutrophils % Lymphocytes % Monocytes % Eosinophils % Basophils % PT with INR INR PTT (Actin FS) Sodium 139 Potassium 4.2 Chloride 102 Carbon Dioxide 25 Anion Gap 12 BUN 22.0 H Creatinine 0.6 Est GFR (CKD-EPI)AfAm 99.07 Est GFR (CKD-EPI)NonAf 85.48 Random Glucose 121 H Calcium 9.8 Phosphorus Cancelled 3.4 Magnesium 1.9 Total Bilirubin 0.6 AST 21 ALT 14 Alkaline Phosphatase 88 Creatine Kinase 35 Troponin I B-Natriuretic Peptide 3616.8 H Total Protein 7.1 Albumin 3.8 TSH 3.20 Free T4 Cancelled 1.02 Urine Color Urine Appearance Urine pH Urine Protein Urine Glucose (UA) Urine Ketones Urine Blood Urine Nitrite Urine Bilirubin Urine Urobilinogen Ur Leukocyte Esterase Urine RBC Urine WBC Ur Transition Epith Cell Urine Bacteria Blood Type A NEGATIVE Antibody Screen Negative 01/06/20 09:02 WBC RBC Hgb Hct MCV MCH MCHC RDW Plt Count MPV Absolute Neuts (auto) Neutrophils % Lymphocytes % Monocytes % Eosinophils % Basophils % PT with INR INR PTT (Actin FS) Sodium Potassium Chloride Carbon Dioxide Anion Gap BUN Creatinine Est GFR (CKD-EPI)AfAm Est GFR (CKD-EPI)NonAf Random Glucose Calcium Phosphorus Magnesium Total Bilirubin AST ALT Alkaline Phosphatase Creatine Kinase Troponin I B-Natriuretic Peptide Total Protein Albumin TSH Free T4 Urine Color Yellow Urine Appearance Clear Urine pH 6.5 Urine Protein Negative Urine Glucose (UA) Negative Urine Ketones Negative Urine Blood Trace-intact Urine Nitrite Negative Urine Bilirubin Negative Urine Urobilinogen 0.2 Ur Leukocyte Esterase Negative Urine RBC 2-5 Urine WBC 0-2 Ur Transition Epith Cell Few Urine Bacteria None seen Blood Type Antibody Screen ASSESSMENT/PLAN: 79 year-old female with a PMH significant for HTN, HLD, CAD s/p stents x 2, atrial fibrillation on Eliquis, diastolic heart failure, and lung cancer s/p left pneumonectomy. Admitted for acute on chronic diastolic heart failure. Acute on chronic diastolic heart failure --12/30/19 Echo: LV normal, EF 60-65%; RV normal; BLAE; moderate to severe MR, moderate TR, trace PI --appears volume overloaded, elevated BNP, bilateral lower extremity edema, mild to moderate respiratory distress observed in ED --Lasix IV 40mg daily --daily weights; strict I&Os, purdy in place --telemetry monitoring --cardiology following --continue lisinopril, diltiazem CD Atrial fibrillation --HR controlled, continue diltiazem CD --continue Eliquis (age >80, Cr <1.5 and wt >60 kg) Hypertension --BP stable --continue lisinopril, diltiazem CD Hyperlipidemia --continue Lipitor Coronary artery disease --no ASA since on Eliquis Lung cancer s/p left pneumonectomy New pulmonary nodule --1.7 x 1.3 RLL nodule seen on CT on 12/27 --outpatient follow up with Dr. Giovanna FERNANDEZ Fluids: PO intake adequate Electrolytes: replete as indicated Nutrition: low sodium DVT prophylaxis: on Eliquis Physical therapy Dispo: continues to require inpatient care. Full code. Family Medical History Family History: As Documented Visit type - Medication Review Med list reviewed for High Risk Meds patients 65 and older: Yes - Emergency Visit Emergency Visit: Yes ED Registration Date: 01/06/20 Care time: The patient presented to the Emergency Department on the above date and was hospitalized for further evaluation of their emergent condition. - New Patient This patient is new to me today: Yes Date on this admission: 01/06/20 - Critical Care Critical Care patient: No
--- NOTE | 2020-01-06 18:51 | CON.CARD ---
Cardiology Consult (text) - Consultation Consultation Note: Chief Complaint: palps, dyspnea History of Present Illness: 79f h/o CAD s/p PCI, hx lung cancer s/p resection p/w palpitations, dyspnea. Sees Dr. Rendon for cardio. Recent admit for AFIB/CHF sent home last week. Gradually sxs returned with racing heart but then had a hard time breathing even walking around in the house so came back to the ER. No orthopnea, edema, chest pain. Did not take lasix at home, was not on dc med list. - History Source History Provided By: Patient - Past Medical History Cardio/Vascular: Yes: CAD, HTN, Hyperlipdemia Pulmonary: Yes: Cancer (remission) Gastrointestinal: Yes: Diverticulitis, GERD - Past Surgical History Past Surgical History: Yes: Cholecystectomy, Stent - Alcohol/Substance Use Hx Alcohol Use: No History of Substance Use: reports: None - Smoking History Smoking history: Former smoker Have you smoked in the past 12 months: No Aproximately how many cigarettes per day: 0 If you are a former smoker, when did you quit?: 20 YEARS AGO - Social History ADL: Independent Occupation: retired History of Recent Travel: No Home Medications - Allergies Allergies/Adverse Reactions: Home Medications Medication Instructions Recorded Acetaminophen [Tylenol 1,000 mg PO Q8H PRN 04/26/18 .Extra-Strength -] Atorvastatin Ca [Lipitor] 10 mg PO HS 04/26/18 Cholecalciferol (Vitamin D3) 2,000 unit PO DAILY 04/26/18 [Vitamin D3] Loratadine [Claritin] 10 mg PO DAILY PRN 04/26/18 Sertraline HCl [Zoloft -] 50 mg PO DAILY 04/26/18 Diltiazem Cd [Cardizem Cd -] 240 mg PO DAILY cap.cd.24h 02/10/19 Benazepril HCl 40 mg PO DAILY 12/29/19 Apixaban [Eliquis -] 5 mg PO BID #60 tablet 01/01/20 Current Medications Generic Name Dose Route Start Last Admin Trade Name Freq PRN Reason Stop Dose Admin Apixaban 5 mg 01/06/20 22:00 Eliquis - PO BID HI Atorvastatin Calcium 10 mg 01/06/20 22:00 Lipitor - PO HS [facility] Diltiazem HCl 240 mg 01/07/20 10:00 Cardizem Cd - PO DAILY HI Lisinopril 40 mg 01/07/20 10:00 Prinivil PO DAILY HI Sertraline HCl 50 mg 01/07/20 10:00 Zoloft - PO DAILY [facility] Family Disease History - Family Disease History Family History: Unremarkable (not pertinent to this presentation) Review of Systems Findings/Remarks: see HPI - Review of Systems Constitutional: reports: No Symptoms, Unintentional Wgt. Loss HENT: reports: No Symptoms Neck: reports: No Symptoms Cardiovascular: reports: Chest Pain Respiratory: reports: No Symptoms Gastrointestinal: reports: Abdominal Pain, Indigestion Genitourinary: denies: No Symptoms, Burning, Discharge, Dysuria, Flank Pain, Frequency, Hematuria, Incontinence, Lesions, Menses, Pain, Testicular Mass, Testicular Pain, Testicular Swelling, Urgency, Vaginal Bleeding, Other Breasts: denies: No Symptoms Reported, See HPI, Breast Implants, Discharge from Nipple, Lumps, Pain, Skin Changes, Other Musculoskeletal: denies: No Symptoms, Back Pain, Crepitus, Decreased ROM, Extremity Pain, Joint Pain, Joint Swelling, Muscle Pain, Muscle Cramps, Muscle Weakness, Other Integumentary: denies: No Symptoms, Blister, Bruising, Change in Color, Eczema, Erythema, Incision, Lesions, Lump, Pallor, Pruritis, Rash, Wound, Other Neurological: denies: No Symptoms, Change in LOC, Change in Speech, Confusion, Dizziness, Headache, Incoordination, Numbness, Parasthesia, Pre-Existing Deficit, Seizure, Syncope, Tremors, Unsteady Gait, Weakness, Other Endocrine: denies: No Symptoms, Excessive Sweating, Flushing, Increased Hunger, Increased Thirst, Intolerance to Cold, Intolerance to Heat, Unexplained Weight Gain, Unexplained Weight Loss, Other Hematology/Lymphatic: denies: No Symptoms, Easily Bruised, Excessive Bleeding, Swollen Glands, Other - Risk Factors Known Risk Factors: Yes: Smoking, Other (known CAD s/p PCI > 1 year ago) Vital Signs Period Temp Pulse Resp BP Sys/Santa Pulse Ox Last 24 Hr 98.8 F-99.2 F 59-86 18-20 129-163/50-89 98-100 Constitutional: Yes: Calm Eyes: Yes: Conjunctiva Clear Respiratory: Yes: Other (Left old surgical incision, (Resection CA) w/ decreased breath sounds/ contra side clear, no rales or wheezing) Gastrointestinal: Yes: Soft (no rebound or guarding.) Cardiovascular: Yes: Regular Rate and Rhythm JVD: No Carotid Bruit: No Heart Sounds: Yes: S1, S2 (rrr) Murmur: Yes: Systolic Murmur Edema: No Peripheral Pulses WNL: Yes Neurological: Yes: Alert, Oriented no jaundice, diaphoresis not agitated Laboratory Last Values WBC 8.7 K/mm3 (4.0-10.8) 01/06/20 08:39 RBC 3.85 M/mm3 (3.60-5.2) 01/06/20 08:39 Hgb 11.5 GM/dl (10.7-15.3) 01/06/20 08:39 Hct 35.8 % (32.4-45.2) 01/06/20 08:39 MCV 93.0 fl (80-96) 01/06/20 08:39 MCH 30.0 pg (25.7-33.7) 01/06/20 08:39 MCHC 32.2 g/dl (32.0-36.0) 01/06/20 08:39 RDW 14.0 % (11.6-15.6) 01/06/20 08:39 Plt Count 271 K/MM3 (134-434) 01/06/20 08:39 MPV 10.3 fl (7.5-11.1) 01/06/20 08:39 Absolute Neuts (auto) 6.7 K/mm3 01/06/20 08:39 Neutrophils % 77.0 % (42.8-82.8) 01/06/20 08:39 Lymphocytes % 16.5 % (8-40) 01/06/20 08:39 Monocytes % 4.2 % (3.8-10.2) 01/06/20 08:39 Eosinophils % 1.7 % (0-4.5) 01/06/20 08:39 Basophils % 0.6 % (0-2.0) 01/06/20 08:39 PT with INR 21.6 SEC (10.2-13.0) H 01/06/20 08:16 INR 1.95 (0.82-1.09) H 01/06/20 08:16 PTT (Actin FS) 32.6 SECONDS (25.2-36.5) 01/06/20 08:16 Sodium 139 mmol/L (136-145) 01/06/20 08:52 Potassium 4.2 mmol/L (3.5-5.1) 01/06/20 08:52 Chloride 102 mmol/L (98-107) 01/06/20 08:52 Carbon Dioxide 25 mmol/L (21-32) 01/06/20 08:52 Anion Gap 12 MMOL/L (8-16) 01/06/20 08:52 BUN 22.0 mg/dl (7-18) H 01/06/20 08:52 Creatinine 0.6 mg/dl (0.55-1.3) 01/06/20 08:52 Est GFR (CKD-EPI)AfAm 99.07 01/06/20 08:52 Est GFR (CKD-EPI)NonAf 85.48 01/06/20 08:52 Random Glucose 121 mg/dl (74-106) H 01/06/20 08:52 Calcium 9.8 mg/dl (8.5-10) 01/06/20 08:52 Phosphorus 3.4 mg/dL (2.5-4.9) 01/06/20 08:52 Magnesium 1.9 mg/dL (1.8-2.4) 01/06/20 08:52 Total Bilirubin 0.6 mg/dl (0.2-1) 01/06/20 08:52 AST 21 U/L (15-37) 01/06/20 08:52 ALT 14 U/L (13-61) 01/06/20 08:52 Alkaline Phosphatase 88 U/L (45-117) 01/06/20 08:52 Creatine Kinase 35 U/L (26-192) 01/06/20 08:52 Troponin I 0.03 ng/ml (0.00-0.05) 01/06/20 15:15 B-Natriuretic Peptide 3616.8 pg/ml (5-450) H 01/06/20 08:52 Total Protein 7.1 g/dl (6.4-8.2) 01/06/20 08:52 Albumin 3.8 g/dl (3.4-5.0) 01/06/20 08:52 TSH 3.20 uIU/ml (0.358-3.74) 01/06/20 08:52 Free T4 1.02 ng/dl (0.76-1.46) 01/06/20 08:52 Urine Color Yellow 01/06/20 09:02 Urine Appearance Clear 01/06/20 09:02 Urine pH 6.5 (4.5-8) 01/06/20 09:02 Urine Protein Negative (NEGATIVE) 01/06/20 09:02 Urine Glucose (UA) Negative (NEGATIVE) 01/06/20 09:02 Urine Ketones Negative (NEGATIVE) 01/06/20 09:02 Urine Blood Trace-intact (NEGATIVE) 01/06/20 09:02 Urine Nitrite Negative (NEGATIVE) 01/06/20 09:02 Urine Bilirubin Negative (NEGATIVE) 01/06/20 09:02 Urine Urobilinogen 0.2 (0.2-1.0) 01/06/20 09:02 Ur Leukocyte Esterase Negative (NEGATIVE) 01/06/20 09:02 Urine RBC 2-5 /hpf (0-4) 01/06/20 09:02 Urine WBC 0-2 (NEGATIVE) 01/06/20 09:02 Ur Transition Epith Cell Few /hpf 01/06/20 09:02 Urine Bacteria None seen /hpf (NEGATIVE) 01/06/20 09:02 Blood Type A NEGATIVE 01/06/20 08:49 Antibody Screen Negative 01/06/20 08:49 DATA: echo 01/2019 nl LV/RV function, LA mildly dilated, mod to severe MAC, mod to severe MR, mod to severe TR, PASP at least 39 mmHg mibi 01/2019 med sized, mild severity reversible defect in mid anterior wall and small fixed defect in mid inferior wall with mild marylou-infarct ischemia, nl wall motion tele: afib, rate controlled ecg: afib, rate ok, no sig change prior cxr: no chf IMP/PLAN: 79f h/o CAD s/p PCI, hx lung cancer s/p resection p/w palpitations, dyspnea, afib, CHF afib: - cont cardizem, rate controlled - recent echo here with normal biV fxn, mod-severe MR/mod TR and mod - on eliquis 5 mg BID acute on chronic diastolic HF: - recent echo shows normal biV fx, moderate to severe MR which may improve w/ optimized volume status. - recent admit for chf, diuresed but was not taking lasix at home and now presents with mild vol overload - cont IV lasix - daily chem7, wts HTN: - cont cardizem HLD: - cont statin CAD: - cont statin, ac history of lung cancer: - manage per primary
[2020-01-06] MEDS: APIXABAN 5 MG TABLET PO SCH (21:13)
[2020-01-06] MEDS: ATORVASTATIN CA 10 MG TABLET (FP) PO SCH (21:13)
[2020-01-07 08:20] LABS: HEMOGLOBIN 11.1 GM/dl (10.7-15.3); MCH 29.5 pg (25.7-33.7); MCHC 30.8 g/dl (32.0-36.0); MEAN CELL VOLUME 95.7 fl (80-96); MEAN PLT VOLUME 10.7 fl (7.5-11.1); PLATELET COUNT 221 K/MM3 (134-434); RBC 3.76 M/mm3 (3.60-5.2); RDW 13.9 % (11.6-15.6); WHITE BLOOD COUNT 9.5 K/mm3 (4.0-10.8)
[2020-01-07 08:27] LABS: ALBUMIN 3.3 g/dl (3.4-5.0); BILIRUBIN,TOTAL 0.6 mg/dl (0.2-1); CALCIUM 9.4 mg/dl (8.5-10); CREATININE 0.5 mg/dl (0.55-1.3); POTASSIUM 4.9 mmol/L (3.5-5.1); TOT PROT 6.2 g/dl (6.4-8.2)
[2020-01-07 09:26] LABS: ANISOCYTOSIS 1+
[2020-01-07 09:27] LABS: PLATELET ESTIMATE ADEQUATE
[2020-01-07] MEDS: LISINOPRIL 20 MG TABLET (FP) PO SCH (09:30)
[2020-01-07] MEDS: APIXABAN 5 MG TABLET PO SCH ×2 (09:31→21:11)
[2020-01-07] MEDS: SERTRALINE HCL 50 MG TABLET (FP) PO SCH (09:31)
[2020-01-07] MEDS: FUROSEMIDE 40 MG/4 ML INJECTABLE VIAL IVPUSH SCH (09:34)
[2020-01-07] MEDS ORDERED: PATIENT'S OWN MEDICATION (NON-FORMULARY) (Benazepril Hcl [Benazepril Hcl] 40 MG) PO SCH (10:00)
[2020-01-07] MEDS ORDERED: VANCOMYCIN 1 GM in D5W (PRE-DOCKED) 1,000 MG/250 ML IVPB SCH (15:00)
--- NOTE | 2020-01-07 15:02 | PN ---
Physical Exam: SUBJECTIVE: Patient seen and examined sitting on edge of bed. Slightly SOB with walking. OBJECTIVE: Vital Signs Period Temp Pulse Resp BP Sys/Santa Pulse Ox Last 24 Hr 98.6 F-100.8 F 54-88 18-19 120-149/51-83 87-100 GENERAL: The patient is awake, alert, and fully oriented, in no acute distress. LUNGS: Mildy dyspneic with speaking HEART: Irregular S1, S2 ABDOMEN: Soft, nontender, nondistended. EXTREMITIES: 2+ pulses, warm, well-perfused, no edema. NEUROLOGICAL: Cranial nerves II through XII grossly intact. Normal speech, gait not observed. PSYCH: Normal mood, normal affect. SKIN: Warm, dry, normal turgor Laboratory Results - last 24 hr 01/06/20 01/06/20 01/06/20 11:14 15:15 21:00 WBC RBC Hgb Hct MCV MCH MCHC RDW Plt Count MPV Absolute Neuts (auto) Neutrophils % Neutrophils % (Manual) Lymphocytes % Lymphocytes % (Manual) Monocytes % (Manual) Eosinophils % (Manual) Hypochromia Platelet Estimate Anisocytosis Sodium Potassium Chloride Carbon Dioxide Anion Gap BUN Creatinine Est GFR (CKD-EPI)AfAm Est GFR (CKD-EPI)NonAf Random Glucose Calcium Magnesium Total Bilirubin AST ALT Alkaline Phosphatase Troponin I 0.03 < 0.03 Total Protein Albumin COVID-19 (DELILAH) Not detected 01/07/20 01/07/20 07:21 07:21 WBC 9.5 RBC 3.76 Hgb 11.1 Hct 36.0 MCV 95.7 MCH 29.5 MCHC 30.8 L RDW 13.9 Plt Count 221 MPV 10.7 Absolute Neuts (auto) 7.0 Neutrophils % No Result Required. Neutrophils % (Manual) 76.0 Lymphocytes % No Result Required. Lymphocytes % (Manual) 14.0 Monocytes % (Manual) 9 Eosinophils % (Manual) 1.0 Hypochromia 1+ Platelet Estimate Adequate Anisocytosis 1+ Sodium 139 Potassium 4.9 Chloride 103 Carbon Dioxide 29 Anion Gap 7 L BUN 20.0 H Creatinine 0.5 L Est GFR (CKD-EPI)AfAm 105.20 Est GFR (CKD-EPI)NonAf 90.77 Random Glucose 97 Calcium 9.4 Magnesium 2.0 Total Bilirubin 0.6 AST 22 ALT 15 Alkaline Phosphatase 82 Troponin I Total Protein 6.2 L Albumin 3.3 L COVID-19 (DELILAH) Active Medications Generic Name Dose Route Start Last Admin Trade Name Jeannette PRN Reason Stop Dose Admin Apixaban 5 mg 01/06/20 22:00 01/07/20 09:31 Eliquis - PO 5 mg BID HI Administration Atorvastatin Calcium 10 mg 01/06/20 22:00 01/06/20 21:13 Lipitor - PO 10 mg HS HI Administration Diltiazem HCl 240 mg 01/07/20 10:00 01/07/20 09:31 Cardizem Cd - PO 240 mg DAILY HI Administration Furosemide 40 mg 01/07/20 10:00 01/07/20 09:34 Lasix Injection - IVPUSH 40 mg DAILY HI Administration Lisinopril 40 mg 01/07/20 10:00 01/07/20 09:30 Prinivil PO 40 mg DAILY HI Administration Sertraline HCl 50 mg 01/07/20 10:00 01/07/20 09:31 Zoloft - PO 50 mg DAILY HI Administration ASSESSMENT/PLAN: 79 year-old female with a PMH significant for HTN, HLD, CAD s/p stents x 2, atrial fibrillation on Eliquis, diastolic heart failure, and lung cancer s/p left pneumonectomy. Admitted for acute on chronic diastolic heart failure. Now with hypoxia and fever. Hypoxia Fever --in setting of recent hospitalization and single right lung --desatted with flat surface ambulation to 87%; fever to 100.8 --CT chest stat --urine, blood cultures, Legionella, viral panel; COVID negative --start vanc/zosyn renally dosed --ID to follow --titrate SpO2 >94% Acute on chronic diastolic heart failure --12/30/19 Echo: LV normal, EF 60-65%; RV normal; BLAE; moderate to severe MR, moderate TR, trace PI --elevated BNP, bilateral lower extremity edema, mild to moderate respiratory distress observed in ED --contniue Lasix IV 40mg daily, lisinopril, diltiazem CD --daily weights; strict I&Os, purdy out --telemetry monitoring --cardiology following Atrial fibrillation --HR controlled, continue diltiazem CD --continue Eliquis (age >80, Cr <1.5 and wt >60 kg) Hypertension --BP stable --continue lisinopril, diltiazem CD Hyperlipidemia --continue Lipitor Coronary artery disease --no ASA since on Eliquis Lung cancer s/p left pneumonectomy New pulmonary nodule --1.7 x 1.3 RLL nodule seen on CT on 12/27 --outpatient follow up with Dr. Giovanna FERNANDEZ Fluids: PO intake adequate Electrolytes: replete as indicated Nutrition: low sodium DVT prophylaxis: on Eliquis Physical therapy Dispo: continues to require inpatient care. Full code. Visit type - Emergency Visit Emergency Visit: Yes ED Registration Date: 01/06/20 Care time: The patient presented to the Emergency Department on the above date and was hospitalized for further evaluation of their emergent condition. - New Patient This patient is new to me today: No - Critical Care Critical Care patient: Yes Total Critical Care Time (in minutes): 45 Critical Care Statement: The care of this patient involved high complexity decision making to prevent further life threatening deterioration of the patient's condition and/or to evaluate & treat vital organ system(s) failure or risk of failure. - Medication Review Med list reviewed for High Risk Meds patients 65 and older: Yes
--- NOTE | 2020-01-07 15:46 | EKG ---
Test Reason : Blood Pressure : / mmHG Vent. Rate : 104 BPM Atrial Rate : 102 BPM P-R Int : 000 ms QRS Dur : 094 ms QT Int : 344 ms P-R-T Axes : 000 022 008 degrees QTc Int : 452 ms ATRIAL FIBRILLATION WITH RAPID VENTRICULAR RESPONSE NONSPECIFIC ST AND T WAVE ABNORMALITY ABNORMAL ECG WHEN COMPARED WITH ECG OF 28-DEC-2019 10:09, NO SIGNIFICANT CHANGE WAS FOUND Confirmed by IFTIKHAR LARA MD ([id number]) on 01/07/2020 3:46:19 PM Referred By: EDWARD FLORES Confirmed By:IFTIKHAR LARA MD
[2020-01-07] MEDS ORDERED: PIPERACILLIN/TAZOBACTAM 3.375 GM VIAL IVPB ONE ×2 (15:47→22:12)
[2020-01-07] MEDS ORDERED: DEXTROSE 5%-WATER - 50 ML IVPB ONE ×2 (15:47→22:13)
[2020-01-07] MEDS: PIPERACILLIN/TAZOB 3.375 GM 3.375 GM in DEXTROSE 5%-WATER - 50 ML IVPB SCH ×2 (15:57→22:42)
[2020-01-07] MEDS: VANCOMYCIN 1 GM in D5W (PRE-DOCKED) 1,000 MG/250 ML IVPB SCH (15:57)
[2020-01-07 16:58] LABS: EPITHELIAL CELLS FEW /hpf
[2020-01-07] MEDS ORDERED: ACETAMINOPHEN 325 MG TABLET (FP) PO PRN (19:17)
[2020-01-07] MEDS: ATORVASTATIN CA 10 MG TABLET (FP) PO SCH (21:11)
[2020-01-08] MEDS: VANCOMYCIN 1 GM in D5W (PRE-DOCKED) 1,000 MG/250 ML IVPB SCH (02:18)
[2020-01-08] MEDS ORDERED: PIPERACILLIN/TAZOBACTAM 3.375 GM VIAL IVPB ONE ×3 (06:07→18:51)
[2020-01-08] MEDS ORDERED: DEXTROSE 5%-WATER - 50 ML IVPB ONE ×3 (06:08→18:51)
[2020-01-08] MEDS: PIPERACILLIN/TAZOB 3.375 GM 3.375 GM in DEXTROSE 5%-WATER - 50 ML IVPB SCH ×3 (06:20→18:54)
--- NOTE | 2020-01-08 09:27 | PN ---
Physical Exam: SUBJECTIVE: Patient seen and examined. Denies pain. Denies fevers, chills. OOB to chair with no SOB. Will try ambulating again today. OBJECTIVE: Ambulated today; lowest SpO2 93%. Vital Signs Period Temp Pulse Resp BP Sys/Santa Pulse Ox Last 24 Hr 98.1 F-100.8 F 54-88 16-19 90-138/44-67 87-100 GENERAL: The patient is awake, alert, and fully oriented, in no acute distress. HEAD: Normal with no signs of trauma. EYES: PERRL, extraocular movements intact, sclera anicteric, conjunctiva clear. No ptosis. ENT: Ears normal, nares patent, oropharynx clear without exudates, moist mucous membranes. NECK: Trachea midline, full range of motion, supple. LUNGS: Breath sounds absent left, clear to auscultation right, no wheezes, no crackles, no accessory muscle use. Left lobectomy scar. HEART: Irregular rhythm, S1, S2 without murmur, rub or gallop. ABDOMEN: Soft, nontender, nondistended, normoactive bowel sounds, no guarding, no rebound, no hepatosplenomegaly, no masses. EXTREMITIES: 2+ pulses, warm, well-perfused, trace LE edema. NEUROLOGICAL: Cranial nerves II through XII grossly intact. Normal speech, gait not observed. PSYCH: Normal mood, normal affect. SKIN: Warm, dry, normal turgor, no rashes or lesions noted Laboratory Results - last 24 hr 01/06/20 01/07/20 01/07/20 11:14 07:21 16:32 Neutrophils % (Manual) 76.0 Lymphocytes % (Manual) 14.0 Monocytes % (Manual) 9 Eosinophils % (Manual) 1.0 Hypochromia 1+ Platelet Estimate Adequate Anisocytosis 1+ Urine Color Yellow Urine Appearance Clear Urine pH 5.5 Urine Protein Negative Urine Glucose (UA) Negative Urine Ketones Negative Urine Blood Trace-intact Urine Nitrite Negative Urine Bilirubin Negative Urine Urobilinogen 0.2 Ur Leukocyte Esterase Negative Urine RBC 2-5 Urine WBC 5-10 Ur Transition Epith Cell Few Urine Bacteria Few COVID-19 (DELILAH) Not detected Active Medications Generic Name Dose Route Start Last Admin Trade Name Freq PRN Reason Stop Dose Admin Acetaminophen 650 mg 01/07/20 19:17 Tylenol - PO Q6H PRN FEVER Apixaban 5 mg 01/06/20 22:00 01/07/20 21:11 Eliquis - PO 5 mg BID HI Administration Atorvastatin Calcium 10 mg 01/06/20 22:00 01/07/20 21:11 Lipitor - PO 10 mg HS HI Administration Diltiazem HCl 240 mg 01/07/20 10:00 01/07/20 09:31 Cardizem Cd - PO 240 mg DAILY HI Administration Furosemide 40 mg 01/07/20 10:00 01/07/20 09:34 Lasix Injection - IVPUSH 40 mg DAILY HI Administration Piperacillin Sod/Tazobactam 50 mls @ 100 mls/hr 01/07/20 15:00 Sod 3.375 gm/ Dextrose IVPB Q8H-IV HI Protocol Lisinopril 40 mg 01/07/20 10:00 01/07/20 09:30 Prinivil PO 40 mg DAILY HI Administration Sertraline HCl 50 mg 01/07/20 10:00 01/07/20 09:31 Zoloft - PO 50 mg DAILY HI Administration Vancomycin HCl 1,000 mg 01/07/20 15:00 Vancomycin (Pre-Docked) IVPB Q12H HI Protocol ASSESSMENT/PLAN: 79 year-old female with a PMH significant for HTN, HLD, CAD s/p stents x 2, atrial fibrillation on Eliquis, diastolic heart failure, and lung cancer s/p left pneumonectomy. Re-admitted for acute on chronic diastolic heart failure with hypoxia, also with fever (improving). Hypoxia Fever --in setting of recent hospitalization and solitary right lung --desatted with flat surface ambulation to 87%; fever to 100.8 - no fever or hypoxia today --CT chest 01/06 demonstrates improvement in vascular congestion, decreasing pleural effusion, RLL nodule --urine, blood cultures, Legionella, viral panel; COVID negative --Zosyn / Vanc was ordered and is awaiting ID approval --ID to follow Acute on chronic diastolic heart failure --12/30/19 Echo: LV normal, EF 60-65%; RV normal; BLAE; moderate to severe MR, moderate TR, trace PI --elevated BNP, bilateral lower extremity edema, mild to moderate respiratory distress observed in ED --contniue Lasix IV 40mg daily, lisinopril, diltiazem CD --daily weights; strict I&Os, purdy out --telemetry monitoring --cardiology following Atrial fibrillation --HR controlled, continue diltiazem CD --continue Eliquis (age >80, Cr <1.5 and wt >60 kg) Hypertension --BP stable --continue lisinopril, diltiazem CD Hyperlipidemia --continue Lipitor Coronary artery disease --no ASA since on Eliquis Lung cancer s/p left pneumonectomy New pulmonary nodule --1.7 x 1.3 RLL nodule seen on CT on 12/27 --outpatient follow up with Dr. Giovanna FERNANDEZ Fluids: PO intake adequate Electrolytes: replete as indicated Nutrition: low sodium DVT prophylaxis: on Eliquis Physical therapy Dispo: continues to require inpatient care. Full code. *Lung nodule needs [address] per Fleischner criteria. Visit type - Emergency Visit Emergency Visit: Yes ED Registration Date: 01/06/20 Care time: The patient presented to the Emergency Department on the above date and was hospitalized for further evaluation of their emergent condition. - New Patient This patient is new to me today: No - Critical Care Critical Care patient: No - Discharge Referral Referred to [facility] No - Medication Review Med list reviewed for High Risk Meds patients 65 and older: Yes
[2020-01-08] MEDS: LISINOPRIL 20 MG TABLET (FP) PO SCH (09:51)
[2020-01-08] MEDS: FUROSEMIDE 40 MG/4 ML INJECTABLE VIAL IVPUSH SCH (09:58)
[2020-01-08] MEDS: SERTRALINE HCL 50 MG TABLET (FP) PO SCH (09:58)
[2020-01-08] MEDS: APIXABAN 5 MG TABLET PO SCH ×2 (09:58→21:10)
[2020-01-08 10:06] LABS: BASO % 0.6 % (0-2.0); CALCIUM 9.4 mg/dl (8.5-10); CREATININE 0.6 mg/dl (0.55-1.3); EOS % 1.3 % (0-4.5); HEMATOCRIT 34.3 % (32.4-45.2); HEMOGLOBIN 10.9 GM/dl (10.7-15.3); LYMPH % 14.7 % (8-40); MCH 29.6 pg (25.7-33.7); MCHC 31.9 g/dl (32.0-36.0); MEAN CELL VOLUME 92.7 fl (80-96); MEAN PLT VOLUME 10.3 fl (7.5-11.1); MONO % 7.8 % (3.8-10.2); NEUT % 75.6 % (42.8-82.8); PLATELET COUNT 291 K/MM3 (134-434); POTASSIUM 4.1 mmol/L (3.5-5.1); RBC 3.69 M/mm3 (3.60-5.2); RDW 13.6 % (11.6-15.6); WHITE BLOOD COUNT 9.5 K/mm3 (4.0-10.8)
[2020-01-08] MEDS: VANCOMYCIN HCL 1,500 MG in DEXTROSE 5%-WATER - 500 ML IVPB SCH (12:57)
--- NOTE | 2020-01-08 14:02 | CON.ID ---
Consult - History of Present Illness History of Present Illness: 79 y.o. female with PMH of Endometrial and Lung CA s/p Lt pneumonectomy, CAD s/p stents, CHF, diverticulitis, HTN, HLD, and GERD presents with c/o SOB, ARAGON, and orthopnea x 1 day. She was last admitted on 12/28/19 with new onset AFIB and pulm congestion and discharged on 01/01/20. Pt denies any recent fever/chills, cough, chest pain, sore throat, sinus pain, abd pain/n/v/d, or dysuria. In the ER noted to have a temp of 99.2 but increased to 100.8 yesterday. She was started on IV antibiotics and diuretic and today is afebrile, stating she feels better with less SOB. Was able to ambulate without much difficulty. Currently 100% O2 sat on 2L NC. She has no specific complaints. - History Source History Provided By: Patient - Past Medical History Cardio/Vascular: Yes: CAD, HTN, Hyperlipdemia Pulmonary: Yes: Cancer (remission) Gastrointestinal: Yes: Diverticulitis, GERD Reproductive: Yes: Other (Endometrial CA) ...: No - Past Surgical History Past Surgical History: Yes: Cholecystectomy Additional Surgical History: Lt lung resection - Alcohol/Substance Use Hx Alcohol Use: No History of Substance Use: reports: None - Smoking History Smoking history: Never smoked Have you smoked in the past 12 months: No Aproximately how many cigarettes per day: 0 If you are a former smoker, when did you quit?: 20 YEARS AGO - Social History ADL: Independent Occupation: retired History of Recent Travel: No Home Medications - Allergies Allergies/Adverse Reactions: Allergies Allergy/AdvReac Type Severity Reaction Status Date / Time No Known Allergies Allergy Verified 01/06/20 09:11 - Home Medications Home Medications: Ambulatory Orders Acetaminophen [Tylenol .Extra-Strength -] 1,000 mg PO Q8H PRN 04/26/18 Atorvastatin Ca [Lipitor] 10 mg PO HS 04/26/18 Cholecalciferol (Vitamin D3) [Vitamin D3] 2,000 unit PO DAILY 04/26/18 Loratadine [Claritin] 10 mg PO DAILY PRN 04/26/18 Sertraline HCl [Zoloft -] 50 mg PO DAILY 04/26/18 Diltiazem Cd [Cardizem Cd -] 240 mg PO DAILY cap.cd.24h 02/10/19 Benazepril HCl 40 mg PO DAILY 12/29/19 Apixaban [Eliquis -] 5 mg PO BID #60 tablet 01/01/20 Family Medical History Family Hx Coronary Artery Disease: Father, Brother Review of Systems - Review of Systems Constitutional: reports: No Symptoms. denies: Chills, Diaphoresis, Fever, Lethargy, Loss of Appetite, Malaise, Night Sweats, Unintentional Wgt. Loss, Weakness, Other Eyes: reports: No Symptoms. denies: Blind Spots, Blurred Vision, Double Vision, Eye Pain, Floaters, Photophobia, Recent Change in Vision, Other HENT: reports: No Symptoms. denies: Difficult Swallowing, Ear Discharge, Ear Pain, Epistaxis, Gingival Bleeding, Hearing Loss, Mouth Swelling, Nasal C ongestion, Ocular Prosthesis, Throat Pain, Toothache, Ringing in Ears, Other Neck: reports: No Symptoms. denies: Decreased ROM, Lumps, Pain on Movement, Stiffness, Swollen Glands, Tenderness, Other Cardiovascular: reports: No Symptoms. denies: Chest Pain, Edema, Palpitations, Shortness of Breath, Other Respiratory: reports: No Symptoms. denies: Cough, Exercise Intolerance, Hemoptysis, Orthopnea, PND, Snoring, SOB, SOB on Exertion, Wheezing, Other Gastrointestinal: reports: No Symptoms. denies: Abdominal Pain, Bloating, Constipation, Diarrhea, Dysphagia, Indigestion, Melena, Nausea, Rectal Bleeding, Vomiting, Vomiting Blood, Other Genitourinary: reports: No Symptoms. denies: Burning, Discharge, Dysuria, Flank Pain, Frequency, Hematuria, Incontinence, Lesions, Menses, Pain, Testicular Mass, Testicular Pain, Testicular Swelling, Urgency, Vaginal Bleeding, Other Integumentary: reports: No Symptoms. denies: Blister, Bruising, Change in Color, Eczema, Erythema, Incision, Lesions, Lump, Pallor, Pruritis, Rash, Wound, Other Neurological: reports: No Symptoms. denies: Change in LOC, Change in Speech, Confusion, Dizziness, Headache, Incoordination, Numbness, Parasthesia, Pre- Existing Deficit, Seizure, Syncope, Tremors, Unsteady Gait, Weakness, Other Endocrine: reports: No Symptoms. denies: Excessive Sweating, Flushing, Increased Hunger, Increased Thirst, Intolerance to Cold, Intolerance to Heat, Unexplained Weight Gain, Unexplained Weight Loss, Other Hematology/Lymphatic: reports: No Symptoms. denies: Easily Bruised, Excessive Bleeding, Swollen Glands, Other Physical Exam Vital Signs: Vital Signs Temperature 98.7 F 01/08/20 10:00 Pulse Rate 81 01/08/20 10:00 Respiratory Rate 18 01/08/20 10:00 Blood Pressure 98/42 L 01/08/20 10:00 O2 Sat by Pulse Oximetry (%) 100 01/08/20 10:00 Constitutional: Yes: No Distress, Calm Eyes: Yes: Conjunctiva Clear, EOM Intact HENT: Yes: Atraumatic, Normocephalic Neck: Yes: Supple Cardiovascular: Yes: Pulse Irregular Respiratory: Yes: Other (Lt lung BS absent, good air entry Rt lung) Renal/: Yes: WNL Musculoskeletal: Yes: WNL Edema: LLE: 1+, RLE: 1+ Peripheral Pulses WNL: Yes Integumentary: Yes: WNL Neurological: Yes: Alert, Oriented Psychiatric: Yes: Alert Labs: CBC, BMP 01/08/20 09:35 01/08/20 09:35 Laboratory Tests 01/06/20 01/06/20 01/06/20 08:16 08:16 08:39 WBC 8.7 RBC 3.85 Hgb 11.5 Hct 35.8 MCV 93.0 MCH 30.0 MCHC 32.2 RDW 14.0 Plt Count 271 MPV 10.3 Absolute Neuts (auto) 6.7 Neutrophils % 77.0 Neutrophils % (Manual) Lymphocytes % 16.5 Lymphocytes % (Manual) Monocytes % 4.2 Monocytes % (Manual) Eosinophils % 1.7 Eosinophils % (Manual) Basophils % 0.6 Hypochromia Platelet Estimate Anisocytosis PT with INR 21.6 H INR 1.95 H PTT (Actin FS) 32.6 Sodium Potassium Chloride Carbon Dioxide Anion Gap BUN Creatinine Est GFR (CKD-EPI)AfAm Est GFR (CKD-EPI)NonAf Random Glucose Calcium Phosphorus Magnesium Total Bilirubin AST ALT Alkaline Phosphatase Creatine Kinase Troponin I < 0.03 B-Natriuretic Peptide Total Protein Albumin TSH Free T4 Urine Color Urine Appearance Urine pH Urine Protein Urine Glucose (UA) Urine Ketones Urine Blood Urine Nitrite Urine Bilirubin Urine Urobilinogen Ur Leukocyte Esterase Urine RBC Urine WBC Ur Transition Epith Cell Urine Bacteria COVID-19 (DELILAH) Blood Type Antibody Screen 01/06/20 01/06/20 01/06/20 08:49 08:49 08:52 WBC RBC Hgb Hct MCV MCH MCHC RDW Plt Count MPV Absolute Neuts (auto) Neutrophils % Neutrophils % (Manual) Lymphocytes % Lymphocytes % (Manual) Monocytes % Monocytes % (Manual) Eosinophils % Eosinophils % (Manual) Basophils % Hypochromia Platelet Estimate Anisocytosis PT with INR INR PTT (Actin FS) Sodium 139 Potassium 4.2 Chloride 102 Carbon Dioxide 25 Anion Gap 12 BUN 22.0 H Creatinine 0.6 Est GFR (CKD-EPI)AfAm 99.07 Est GFR (CKD-EPI)NonAf 85.48 Random Glucose 121 H Calcium 9.8 Phosphorus Cancelled 3.4 Magnesium 1.9 Total Bilirubin 0.6 AST 21 ALT 14 Alkaline Phosphatase 88 Creatine Kinase 35 Troponin I B-Natriuretic Peptide 3616.8 H Total Protein 7.1 Albumin 3.8 TSH 3.20 Free T4 Cancelled 1.02 Urine Color Urine Appearance Urine pH Urine Protein Urine Glucose (UA) Urine Ketones Urine Blood Urine Nitrite Urine Bilirubin Urine Urobilinogen Ur Leukocyte Esterase Urine RBC Urine WBC Ur Transition Epith Cell Urine Bacteria COVID-19 (DELILAH) Blood Type A NEGATIVE Antibody Screen Negative 01/06/20 01/06/20 01/06/20 09:02 11:14 15:15 WBC RBC Hgb Hct MCV MCH MCHC RDW Plt Count MPV Absolute Neuts (auto) Neutrophils % Neutrophils % (Manual) Lymphocytes % Lymphocytes % (Manual) Monocytes % Monocytes % (Manual) Eosinophils % Eosinophils % (Manual) Basophils % Hypochromia Platelet Estimate Anisocytosis PT with INR INR PTT (Actin FS) Sodium Potassium Chloride Carbon Dioxide Anion Gap BUN Creatinine Est GFR (CKD-EPI)AfAm Est GFR (CKD-EPI)NonAf Random Glucose Calcium Phosphorus Magnesium Total Bilirubin AST ALT Alkaline Phosphatase Creatine Kinase Troponin I 0.03 B-Natriuretic Peptide Total Protein Albumin TSH Free T4 Urine Color Yellow Urine Appearance Clear Urine pH 6.5 Urine Protein Negative Urine Glucose (UA) Negative Urine Ketones Negative Urine Blood Trace-intact Urine Nitrite Negative Urine Bilirubin Negative Urine Urobilinogen 0.2 Ur Leukocyte Esterase Negative Urine RBC 2-5 Urine WBC 0-2 Ur Transition Epith Cell Few Urine Bacteria None seen COVID-19 (DELILAH) Not detected Blood Type Antibody Screen 01/06/20 01/07/20 01/07/20 21:00 07:21 07:21 WBC 9.5 RBC 3.76 Hgb 11.1 Hct 36.0 MCV 95.7 MCH 29.5 MCHC 30.8 L RDW 13.9 Plt Count 221 MPV 10.7 Absolute Neuts (auto) 7.0 Neutrophils % No Result Required. Neutrophils % (Manual) 76.0 Lymphocytes % No Result Required. Lymphocytes % (Manual) 14.0 Monocytes % Monocytes % (Manual) 9 Eosinophils % Eosinophils % (Manual) 1.0 Basophils % Hypochromia 1+ Platelet Estimate Adequate Anisocytosis 1+ PT with INR INR PTT (Actin FS) Sodium 139 Potassium 4.9 Chloride 103 Carbon Dioxide 29 Anion Gap 7 L BUN 20.0 H Creatinine 0.5 L Est GFR (CKD-EPI)AfAm 105.20 Est GFR (CKD-EPI)NonAf 90.77 Random Glucose 97 Calcium 9.4 Phosphorus Magnesium 2.0 Total Bilirubin 0.6 AST 22 ALT 15 Alkaline Phosphatase 82 Creatine Kinase Troponin I < 0.03 B-Natriuretic Peptide Total Protein 6.2 L Albumin 3.3 L TSH Free T4 Urine Color Urine Appearance Urine pH Urine Protein Urine Glucose (UA) Urine Ketones Urine Blood Urine Nitrite Urine Bilirubin Urine Urobilinogen Ur Leukocyte Esterase Urine RBC Urine WBC Ur Transition Epith Cell Urine Bacteria COVID-19 (DELILAH) Blood Type Antibody Screen 01/07/20 01/08/20 01/08/20 16:32 09:35 09:35 WBC 9.5 RBC 3.69 Hgb 10.9 Hct 34.3 MCV 92.7 MCH 29.6 MCHC 31.9 L RDW 13.6 Plt Count 291 MPV 10.3 Absolute Neuts (auto) 7.2 Neutrophils % 75.6 Neutrophils % (Manual) Lymphocytes % 14.7 Lymphocytes % (Manual) Monocytes % 7.8 Monocytes % (Manual) Eosinophils % 1.3 Eosinophils % (Manual) Basophils % 0.6 Hypochromia Platelet Estimate Anisocytosis PT with INR INR PTT (Actin FS) Sodium 136 Potassium 4.1 Chloride 98 Carbon Dioxide 28 Anion Gap 10 BUN 19.0 H Creatinine 0.6 Est GFR (CKD-EPI)AfAm 99.07 Est GFR (CKD-EPI)NonAf 85.48 Random Glucose 120 H Calcium 9.4 Phosphorus Magnesium Total Bilirubin AST ALT Alkaline Phosphatase Creatine Kinase Troponin I B-Natriuretic Peptide Total Protein Albumin TSH Free T4 Urine Color Yellow Urine Appearance Clear Urine pH 5.5 Urine Protein Negative Urine Glucose (UA) Negative Urine Ketones Negative Urine Blood Trace-intact Urine Nitrite Negative Urine Bilirubin Negative Urine Urobilinogen 0.2 Ur Leukocyte Esterase Negative Urine RBC 2-5 Urine WBC 5-10 Ur Transition Epith Cell Few Urine Bacteria Few COVID-19 (DELILAH) Blood Type Antibody Screen Microbiology 01/07/20 16:00 Urine For Antigen Detection Legionella Antigen - Final 01/07/20 16:00 Urine For Antigen Detection Streptococcus pneumoniae Antigen (M - Final 01/06/20 08:48 Urine - Urine Clean Catch Urine Culture - Final NO GROWTH OBTAINED Imaging - Results Chest X-ray: Report Reviewed Cat Scan: Report Reviewed Problem List - Problems (1) Atrial fibrillation Code(s): I48.91 - UNSPECIFIED ATRIAL FIBRILLATION Qualifiers: Atrial fibrillation type: unspecified Qualified Code(s): I48.91 - Unspecified atrial fibrillation (2) CHF (congestive heart failure) Code(s): I50.9 - HEART FAILURE, UNSPECIFIED Qualifiers: Heart failure type: unspecified Heart failure chronicity: unspecified Qualified Code(s): I50.9 - Heart failure, unspecified (3) CAD (coronary artery disease) Code(s): I25.10 - ATHSCL HEART DISEASE OF [place] CORONARY ARTERY W/O ANG PCTRS (4) HLD (hyperlipidemia) Code(s): E78.5 - HYPERLIPIDEMIA, UNSPECIFIED (5) HTN (hypertension) Code(s): I10 - ESSENTIAL (PRIMARY) HYPERTENSION (6) Lung cancer Code(s): C34.90 - MALIGNANT NEOPLASM OF UNSP PART OF UNSP BRONCHUS OR LUNG (7) SOB (shortness of breath) Code(s): R06.02 - SHORTNESS OF BREATH (8) Uterine cancer Code(s): C55 - MALIGNANT NEOPLASM OF UTERUS, PART UNSPECIFIED Assessment/Plan Fever Acute on Chronic CHF AFIB CAD HTN HLD RLL nodule Hx of Lung CA s/p Lt lung resection Hx of Uterine CA -- Pt with fever yesterday possibly due to infectious etiology/? Viral. CT chest without acute infiltrates -- COVID neg, Urinary Ag neg. Follow up blood/viral cultures. -- Today afebrile, improving. Would continue Zosyn/Vancomycin for now and reassess. Monitor renal function/Vancomycin levels -- Cardiology following -- continue monitor temps Will follow Thank you
[2020-01-08] MEDS: ATORVASTATIN CA 10 MG TABLET (FP) PO SCH (21:10)
[2020-01-09] MEDS ORDERED: PIPERACILLIN/TAZOBACTAM 3.375 GM VIAL IVPB ONE ×3 (01:08→16:57)
[2020-01-09] MEDS ORDERED: DEXTROSE 5%-WATER - 50 ML IVPB ONE ×3 (01:09→16:58)
[2020-01-09] MEDS: PIPERACILLIN/TAZOB 3.375 GM 3.375 GM in DEXTROSE 5%-WATER - 50 ML IVPB SCH ×4 (01:30→17:22)
--- NOTE | 2020-01-09 09:10 | PN ---
Physical Exam: SUBJECTIVE: Patient seen and examined at bedside,reports feels better, denies fever, chills, cough,sob, cp, palpitations, abdominal pain, N/V/D or urinary symptoms. OBJECTIVE: Vital Signs Period Temp Pulse Resp BP Sys/Santa Pulse Ox Last 24 Hr 98.5 F-99 F 81-99 18-19 90-144/42-66 96-100 GENERAL: The patient is awake, alert, and fully oriented, in no acute distress. HEAD: Normal with no signs of trauma. EYES: PERRL, extraocular movements intact, sclera anicteric, conjunctiva clear. No ptosis. ENT: Ears normal, nares patent, oropharynx clear without exudates, moist mucous membranes. NECK: Trachea midline, full range of motion, supple. LUNGS: Breath sounds absent on LLL,no wheezes, no crackles, no accessory muscle use. HEART: Irregular without murmur, rub or gallop. ABDOMEN: Soft, nontender, nondistended, normoactive bowel sounds, no guarding, no rebound, no hepatosplenomegaly, no masses. EXTREMITIES: 2+ pulses, warm, well-perfused, 1+ edema. NEUROLOGICAL: Cranial nerves II through XII grossly intact. Normal speech, gait not observed. PSYCH: Normal mood, normal affect. SKIN: Warm, dry, normal turgor, no rashes or lesions noted Laboratory Results - last 24 hr 01/08/20 01/08/20 09:35 09:35 WBC 9.5 RBC 3.69 Hgb 10.9 Hct 34.3 MCV 92.7 MCH 29.6 MCHC 31.9 L RDW 13.6 Plt Count 291 MPV 10.3 Absolute Neuts (auto) 7.2 Neutrophils % 75.6 Lymphocytes % 14.7 Monocytes % 7.8 Eosinophils % 1.3 Basophils % 0.6 Sodium 136 Potassium 4.1 Chloride 98 Carbon Dioxide 28 Anion Gap 10 BUN 19.0 H Creatinine 0.6 Est GFR (CKD-EPI)AfAm 99.07 Est GFR (CKD-EPI)NonAf 85.48 Random Glucose 120 H Calcium 9.4 Active Medications Generic Name Dose Route Start Last Admin Trade Name Freq PRN Reason Stop Dose Admin Acetaminophen 650 mg 01/07/20 19:17 Tylenol - PO Q6H PRN FEVER Apixaban 5 mg 01/06/20 22:00 01/08/20 21:10 Eliquis - PO 5 mg BID HI Administration Atorvastatin Calcium 10 mg 01/06/20 22:00 01/08/20 21:10 Lipitor - PO 10 mg HS HI Administration Diltiazem HCl 240 mg 01/07/20 10:00 01/08/20 09:51 Cardizem Cd - PO Not Given DAILY HI Furosemide 40 mg 01/07/20 10:00 01/08/20 09:58 Lasix Injection - IVPUSH Not Given DAILY HI Vancomycin HCl 1,500 mg/ 500 mls @ 250 mls/hr 01/08/20 11:00 01/08/20 12:57 Dextrose IVPB 250 mls/hr Q24H HI Administration Protocol Piperacillin Sod/Tazobactam 50 mls @ 100 mls/hr 01/08/20 11:00 01/09/20 01:30 Sod 3.375 gm/ Dextrose IVPB 100 mls/hr Q8H-IV HI Administration Protocol Lisinopril 40 mg 01/07/20 10:00 01/08/20 09:51 Prinivil PO Not Given DAILY HI Sertraline HCl 50 mg 01/07/20 10:00 01/08/20 09:58 Zoloft - PO 50 mg DAILY HI Administration Microbiology 01/07/20 16:00 Urine Culture - Preliminary Urine - Urine Clean Catch Lactose Fermenting Neg Bacilli Non Lactose Fermenting Gnb 01/07/20 15:15 Blood Culture - Preliminary Blood - Peripheral Venous NO GROWTH OBTAINED AFTER 24 HOURS, INCUBATION TO CONTINUE FOR 4 DAYS. 01/07/20 15:30 Blood Culture - Preliminary Blood - Peripheral Venous NO GROWTH OBTAINED AFTER 24 HOURS, INCUBATION TO CONTINUE FOR 4 DAYS. 01/07/20 16:00 Legionella Antigen - Final Urine For Antigen Detection Streptococcus pneumoniae Antigen (M - Final ASSESSMENT/PLAN: 79 year-old female with a PMH significant for HTN, HLD, CAD s/p stents x 2, atrial fibrillation on Eliquis, diastolic heart failure, and lung cancer s/p left pneumonectomy. Re-admitted for acute on chronic diastolic heart failure with hypoxia, also with fever (improving). *Hypoxia/Fever- improved -in setting of recent hospitalization and solitary right lung -desatted with flat surface ambulation to 87%; fever to 100.8 , now afebrile, O2 sat 99%0n 2L N/C -CT chest 01/06 demonstrates improvement in vascular congestion, decreasing pleural effusion, RLL nodule - viral panel pending - COVID negative -will cont on Zosyn and Vanco -ID input appreciated - encourage t use IS - afebrile with no leukocytosis - check Vanco level *Acute on chronic diastolic heart failure, likely due to medication non- complains -12/30/19 Echo: LV normal, EF 60-65%; RV normal; BLAE; moderate to severe MR, moderate TR, trace PI -elevated BNP, bilateral lower extremity edema, mild to moderate respiratory distress observed in ED -continue Lasix IV 40mg daily, lisinopril, diltiazem CD -daily weights; strict I&Os -telemetry monitoring, no cardiac events -cardiology following - Trop Neg - Daily weight monitoring - I&O's *Atrial fibrillation- HR controlled -will continue diltiazem CD and Eliquis (age >80, Cr <1.5 and wt >60 kg) *Hypertension-BP stable -continue lisinopril, diltiazem CD *Hyperlipidemia -continue Lipitor *Coronary artery disease -no ASA since on Eliquis *Lung cancer s/p left pneumonectomy New pulmonary nodule -1.7 x 1.3 RLL nodule seen on CT on 12/27 -outpatient follow up with Dr. Heredia * Depression - on Zoloft FEN Fluids: PO intake adequate Electrolytes: replete as indicated Nutrition: low sodium DVT prophylaxis: on Eliquis Physical therapy following Visit type - Emergency Visit Emergency Visit: Yes ED Registration Date: 01/06/20 Care time: The patient presented to the Emergency Department on the above date and was hospitalized for further evaluation of their emergent condition. - New Patient This patient is new to me today: Yes Date on this admission: 01/09/20 - Critical Care Critical Care patient: No - Medication Review Med list reviewed for High Risk Meds patients 65 and older: Yes
[2020-01-09 09:11] LABS: CALCIUM 9.4 mg/dl (8.5-10); CREATININE 0.6 mg/dl (0.55-1.3); POTASSIUM 4.2 mmol/L (3.5-5.1)
[2020-01-09 09:14] LABS: BASO % 0.2 % (0-2.0); EOS % 1.9 % (0-4.5); HEMATOCRIT 34.8 % (32.4-45.2); HEMOGLOBIN 11.1 GM/dl (10.7-15.3); LYMPH % 19.6 % (8-40); MCH 29.7 pg (25.7-33.7); MCHC 31.8 g/dl (32.0-36.0); MEAN CELL VOLUME 93.6 fl (80-96); MEAN PLT VOLUME 10.8 fl (7.5-11.1); MONO % 9.1 % (3.8-10.2); NEUT % 69.2 % (42.8-82.8); PLATELET COUNT 264 K/MM3 (134-434); RBC 3.72 M/mm3 (3.60-5.2); RDW 13.8 % (11.6-15.6)
[2020-01-09] MEDS: LISINOPRIL 20 MG TABLET (FP) PO SCH (09:58)
[2020-01-09] MEDS: SERTRALINE HCL 50 MG TABLET (FP) PO SCH (09:58)
[2020-01-09] MEDS: APIXABAN 5 MG TABLET PO SCH ×2 (09:58→21:29)
[2020-01-09] MEDS: FUROSEMIDE 40 MG/4 ML INJECTABLE VIAL IVPUSH SCH (10:02)
--- NOTE | 2020-01-09 13:54 | PN ---
Progress Note, Physician History of Present Illness: Pt states she is less SOB, currently sitting in chair, on RA saturating well. Tmax 99F. - Current Medication List Current Medications: Active Medications Acetaminophen (Tylenol -) 650 mg PO Q6H PRN PRN Reason: FEVER Apixaban (Eliquis -) 5 mg PO BID [facility] Last Admin: 01/09/20 09:58 Dose: 5 mg Documented by: Atorvastatin Calcium (Lipitor -) 10 mg PO HS [facility] Last Admin: 01/08/20 21:10 Dose: 10 mg Documented by: Diltiazem HCl (Cardizem Cd -) 240 mg PO DAILY [facility] Last Admin: 01/09/20 09:58 Dose: 240 mg Documented by: Furosemide (Lasix Injection -) 40 mg IVPUSH DAILY [facility] Last Admin: 01/09/20 10:02 Dose: 40 mg Documented by: Vancomycin HCl 1,500 mg/ (Dextrose) 500 mls @ 250 mls/hr IVPB Q24H HI; Protocol Last Admin: 01/08/20 12:57 Dose: 250 mls/hr Documented by: Piperacillin Sod/Tazobactam (Sod 3.375 gm/ Dextrose) 50 mls @ 100 mls/hr IVPB Q8H-IV HI; Protocol Last Admin: 01/09/20 10:03 Dose: 100 mls/hr Documented by: Lisinopril (Prinivil) 40 mg PO DAILY [facility] Last Admin: 01/09/20 09:58 Dose: 40 mg Documented by: Sertraline HCl (Zoloft -) 50 mg PO DAILY [facility] Last Admin: 01/09/20 09:58 Dose: 50 mg Documented by: - Objective Vital Signs: Vital Signs Temperature 98.7 F 01/09/20 06:00 Pulse Rate 83 01/09/20 06:00 Respiratory Rate 18 01/09/20 01:59 Blood Pressure 144/66 01/09/20 06:00 O2 Sat by Pulse Oximetry (%) 99 01/09/20 08:00 Constitutional: Yes: No Distress Eyes: Yes: Conjunctiva Clear Cardiovascular: Yes: Pulse Irregular Respiratory: Yes: Diminished (slightly at bases) Gastrointestinal: Yes: Normal Bowel Sounds, Soft Genitourinary: Yes: WNL Edema: Yes Integumentary: Yes: WNL Neurological: Yes: Alert, Oriented Labs: CBC, BMP 01/09/20 05:45 01/09/20 05:45 INR, PTT INR 1.95 (0.82-1.09) H 01/06/20 08:16 Laboratory Results - last 24 hr 01/09/20 01/09/20 05:45 05:45 WBC 10.0 RBC 3.72 Hgb 11.1 Hct 34.8 MCV 93.6 MCH 29.7 MCHC 31.8 L RDW 13.8 Plt Count 264 MPV 10.8 Absolute Neuts (auto) 6.9 Neutrophils % 69.2 Lymphocytes % 19.6 Monocytes % 9.1 Eosinophils % 1.9 Basophils % 0.2 Sodium 140 Potassium 4.2 Chloride 99 Carbon Dioxide 29 Anion Gap 12 BUN 24.0 H Creatinine 0.6 Est GFR (CKD-EPI)AfAm 99.07 Est GFR (CKD-EPI)NonAf 85.48 Random Glucose 83 Calcium 9.4 Microbiology 01/07/20 16:00 Urine - Urine Clean Catch Urine Culture - Preliminary Lactose Fermenting Neg Bacilli Non Lactose Fermenting Gnb 01/07/20 15:15 Blood - Peripheral Venous Blood Culture - Preliminary NO GROWTH OBTAINED AFTER 24 HOURS, INCUBATION TO CO NTINUE FOR 4 DAYS. 01/07/20 15:30 Blood - Peripheral Venous Blood Culture - Preliminary NO GROWTH OBTAINED AFTER 24 HOURS, INCUBATION TO CON TINUE FOR 4 DAYS. 01/07/20 16:00 Urine For Antigen Detection Legionella Antigen - Final 01/07/20 16:00 Urine For Antigen Detection Streptococcus pneumoniae Antigen (M - Final 01/06/20 08:48 Urine - Urine Clean Catch Urine Culture - Final NO GROWTH OBTAINED Problem List - Problems (1) Atrial fibrillation Code(s): I48.91 - UNSPECIFIED ATRIAL FIBRILLATION Qualifiers: Atrial fibrillation type: unspecified Qualified Code(s): I48.91 - Unspecified atrial fibrillation (2) CHF (congestive heart failure) Code(s): I50.9 - HEART FAILURE, UNSPECIFIED Qualifiers: Heart failure type: unspecified Heart failure chronicity: unspecified Qualified Code(s): I50.9 - Heart failure, unspecified (3) CAD (coronary artery disease) Code(s): I25.10 - ATHSCL HEART DISEASE OF [place] CORONARY ARTERY W/O ANG PCTRS (4) HLD (hyperlipidemia) Code(s): E78.5 - HYPERLIPIDEMIA, UNSPECIFIED (5) HTN (hypertension) Code(s): I10 - ESSENTIAL (PRIMARY) HYPERTENSION (6) Lung cancer Code(s): C34.90 - MALIGNANT NEOPLASM OF UNSP PART OF UNSP BRONCHUS OR LUNG (7) SOB (shortness of breath) Code(s): R06.02 - SHORTNESS OF BREATH (8) Uterine cancer Code(s): C55 - MALIGNANT NEOPLASM OF UTERUS, PART UNSPECIFIED Assessment/Plan Fever Acute on Chronic CHF AFIB CAD HTN HLD RLL nodule Hx of Lung CA s/p Lt lung resection Hx of Uterine CA -- Tmax 99F. Less SOB. -- COVID neg, Urinary Ag neg. Blood culture neg so far -- continue monitor temps. Switch to PO antibiotics tomorrow if remains stable -- Cardiology following -- continue monitor temps
[2020-01-09] MEDS: VANCOMYCIN HCL 1,500 MG in DEXTROSE 5%-WATER - 500 ML IVPB SCH (14:08)
[2020-01-09] MEDS: ATORVASTATIN CA 10 MG TABLET (FP) PO SCH (21:29)
[2020-01-10] MEDS ORDERED: DEXTROSE 5%-WATER - 50 ML IVPB ONE ×3 (01:43→14:58)
[2020-01-10] MEDS ORDERED: PIPERACILLIN/TAZOBACTAM 3.375 GM VIAL IVPB ONE ×3 (01:43→14:57)
[2020-01-10] MEDS: PIPERACILLIN/TAZOB 3.375 GM 3.375 GM in DEXTROSE 5%-WATER - 50 ML IVPB SCH ×3 (02:00→17:09)
[2020-01-10 08:43] LABS: CALCIUM 9.5 mg/dl (8.5-10); CREATININE 0.6 mg/dl (0.55-1.3); POTASSIUM 4.2 mmol/L (3.5-5.1)
--- NOTE | 2020-01-10 09:15 | PN ---
Physical Exam: SUBJECTIVE: Patient seen and examined. Feels well, no fevers/chills. No SOB or ARAGON, no desaturation with ambulation. Did have 2 episodes of "watery" stools (last night and this morning); no nausea or abdominal pain. OBJECTIVE: Urine culture is growing 2 organisms. Vital Signs Period Temp Pulse Resp BP Sys/Santa Pulse Ox Last 24 Hr 98.4 F-99.6 F 70-97 18-18 117-144/35-58 98-100 GENERAL: The patient is awake, alert, and fully oriented, in no acute distress. HEAD: Normal with no signs of trauma. EYES: PERRL, extraocular movements intact, sclera anicteric, conjunctiva clear. No ptosis. ENT: Ears normal, nares patent, oropharynx clear without exudates, moist mucous membranes. NECK: Trachea midline, full range of motion, supple. LUNGS: Breath sounds equal, clear to auscultation bilaterally, no wheezes, no crackles, no accessory muscle use. HEART: Irregular rhythm, S1/S2 without murmur, rub or gallop. ABDOMEN: Soft, nontender, nondistended, normoactive bowel sounds, no guarding, no rebound, no hepatosplenomegaly, no masses. EXTREMITIES: 2+ pulses, warm, well-perfused, trace edema. NEUROLOGICAL: Cranial nerves II through XII grossly intact. Normal speech, gait not observed. PSYCH: Normal mood, normal affect. SKIN: Warm, dry, normal turgor, no rashes or lesions noted Laboratory Results - last 24 hr 01/09/20 01/10/20 05:45 07:14 WBC 10.0 RBC 3.72 Hgb 11.1 Hct 34.8 MCV 93.6 MCH 29.7 MCHC 31.8 L RDW 13.8 Plt Count 264 MPV 10.8 Absolute Neuts (auto) 6.9 Neutrophils % 69.2 Lymphocytes % 19.6 Monocytes % 9.1 Eosinophils % 1.9 Basophils % 0.2 Sodium 139 Potassium 4.2 Chloride 99 Carbon Dioxide 30 Anion Gap 10 BUN 18.0 Creatinine 0.6 Est GFR (CKD-EPI)AfAm 99.07 Est GFR (CKD-EPI)NonAf 85.48 Random Glucose 94 Calcium 9.5 Active Medications Generic Name Dose Route Start Last Admin Trade Name Freq PRN Reason Stop Dose Admin Acetaminophen 650 mg 01/07/20 19:17 Tylenol - PO Q6H PRN FEVER Apixaban 5 mg 01/06/20 22:00 01/09/20 21:29 Eliquis - PO 5 mg BID HI Administration Atorvastatin Calcium 10 mg 01/06/20 22:00 01/09/20 21:29 Lipitor - PO 10 mg HS HI Administration Diltiazem HCl 240 mg 01/07/20 10:00 01/09/20 09:58 Cardizem Cd - PO 240 mg DAILY HI Administration Furosemide 40 mg 01/07/20 10:00 01/09/20 10:02 Lasix Injection - IVPUSH 40 mg DAILY HI Administration Vancomycin HCl 1,500 mg/ 500 mls @ 250 mls/hr 01/08/20 11:00 01/09/20 14:08 Dextrose IVPB 250 mls/hr Q24H HI Administration Protocol Piperacillin Sod/Tazobactam 50 mls @ 100 mls/hr 01/08/20 11:00 01/10/20 02:00 Sod 3.375 gm/ Dextrose IVPB 100 mls/hr Q8H-IV HI Administration Protocol Lisinopril 40 mg 01/07/20 10:00 01/09/20 09:58 Prinivil PO 40 mg DAILY HI Administration Sertraline HCl 50 mg 01/07/20 10:00 01/09/20 09:58 Zoloft - PO 50 mg DAILY HI Administration ASSESSMENT/PLAN: 79 year-old female with a PMH significant for HTN, HLD, CAD s/p stents x 2, atrial fibrillation on Eliquis, diastolic heart failure, and lung cancer s/p left pneumonectomy. Re-admitted for acute on chronic diastolic heart failure with hypoxia, also with fever (improving). 1. Hypoxia, improved -in setting of recent hospitalization and solitary right lung -desatted with flat surface ambulation to 87%; f ever to 100.8 , now afebrile, O2 sat 99%0n 2L N/C -CT chest 01/06 demonstrates improvement in vascular congestion, decreasing pleural effusion, RLL nodule - viral panel pending - COVID negative - ID input appreciated - transition to oral abx - encourage IS 2. Acute on chronic diastolic heart failure, likely due to medication non- complains -12/30/19 Echo: LV normal, EF 60-65%; RV normal; BLAE; moderate to severe MR, moderate TR, trace PI -elevated BNP, bilateral lower extremity edema, mild to moderate respiratory distress observed in ED -continue Lasix IV 40mg daily, lisinopril, diltiazem CD -daily weights; strict I&Os -telemetry monitoring, no cardiac events -cardiology following - Trop Neg - Daily weight monitoring (-1kg since admission) - I&O's (net even daily balance) 3. Atrial fibrillation- HR controlled -will continue diltiazem CD and Eliquis (age >80, Cr <1.5 and wt >60 kg) 4. Hypertension-BP stable -continue lisinopril, diltiazem CD 5. Hyperlipidemia -continue Lipitor 6. Coronary artery disease -no ASA since on Eliquis 7. Lung cancer s/p left pneumonectomy New pulmonary nodule -1.7 x 1.3 RLL nodule seen on CT on 12/27 -outpatient follow up with Dr. Heredia ([address] recommended) 8. Depression - on Zoloft 9. FEN Fluids: PO intake adequate Electrolytes: replete as indicated Nutrition: low sodium DVT prophylaxis: on Eliquis Physical therapy following. Dispo: possible dc on oral abx tomorrow if diarrhea improved, urine culture/sensitivities resulted. Visit type - Emergency Visit Emergency Visit: Yes ED Registration Date: 01/06/20 Care time: The patient presented to the Emergency Department on the above date and was hospitalized for further evaluation of their emergent condition. - New Patient This patient is new to me today: Yes Date on this admission: 01/25/20 - Critical Care Critical Care patient: No - Discharge Referral Referred to [facility] Med [facility] No - Medication Review Med list reviewed for High Risk Meds patients 65 and older: Yes
[2020-01-10] MEDS: FUROSEMIDE 40 MG/4 ML INJECTABLE VIAL IVPUSH SCH (10:14)
[2020-01-10] MEDS: APIXABAN 5 MG TABLET PO SCH ×2 (10:14→21:13)
[2020-01-10] MEDS: SERTRALINE HCL 50 MG TABLET (FP) PO SCH (10:15)
[2020-01-10] MEDS: LISINOPRIL 20 MG TABLET (FP) PO SCH (10:15)
[2020-01-10] MEDS: VANCOMYCIN HCL 1,500 MG in DEXTROSE 5%-WATER - 500 ML IVPB SCH (11:30)
[2020-01-10] MEDS ORDERED: PT OWN MED DRAWER 7, Y5N ONE (12:23)
--- NOTE | 2020-01-10 16:18 | PN ---
Progress Note, Physician History of Present Illness: feels better breathing better c/o of dirrhoea which has improved - Current Medication List Current Medications: Active Medications Acetaminophen (Tylenol -) 650 mg PO Q6H PRN PRN Reason: FEVER Apixaban (Eliquis -) 5 mg PO BID [facility] Last Admin: 01/10/20 10:14 Dose: 5 mg Documented by: Atorvastatin Calcium (Lipitor -) 10 mg PO HS [facility] Last Admin: 01/09/20 21:29 Dose: 10 mg Documented by: Diltiazem HCl (Cardizem Cd -) 240 mg PO DAILY [facility] Last Admin: 01/10/20 10:14 Dose: 240 mg Documented by: Furosemide (Lasix Injection -) 40 mg IVPUSH DAILY [facility] Last Admin: 01/10/20 10:14 Dose: 40 mg Documented by: Vancomycin HCl 1,500 mg/ (Dextrose) 500 mls @ 250 mls/hr IVPB Q24H HI; Protocol Last Admin: 01/10/20 11:30 Dose: 250 mls/hr Documented by: Piperacillin Sod/Tazobactam (Sod 3.375 gm/ Dextrose) 50 mls @ 100 mls/hr IVPB Q8H-IV HI; Protocol Last Admin: 01/10/20 10:15 Dose: 100 mls/hr Documented by: Lisinopril (Prinivil) 40 mg PO DAILY [facility] Last Admin: 01/10/20 10:15 Dose: 40 mg Documented by: Sertraline HCl (Zoloft -) 50 mg PO DAILY [facility] Last Admin: 01/10/20 10:15 Dose: 50 mg Documented by: - Objective Vital Signs: Vital Signs Temperature 99.0 F 01/10/20 14:00 Pulse Rate 66 01/10/20 14:00 Respiratory Rate 16 01/10/20 14:00 Blood Pressure 97/53 L 01/10/20 14:00 O2 Sat by Pulse Oximetry (%) 100 01/10/20 14:00 Constitutional: Yes: No Distress, Calm Cardiovascular: Yes: S1, S2 Respiratory: Yes: Regular, Other (decreased air entry) Gastrointestinal: Yes: Normal Bowel Sounds, Soft Musculoskeletal: Yes: WNL Extremities: Yes: WNL Neurological: Yes: Alert, Oriented Psychiatric: Yes: Alert, Oriented Labs: CBC, BMP 01/09/20 05:45 01/10/20 07:14 INR, PTT INR 1.95 (0.82-1.09) H 01/06/20 08:16 Assessment/Plan Problem List - Problems (1) Atrial fibrillation Code(s): I48.91 - UNSPECIFIED ATRIAL FIBRILLATION Qualifiers: Atrial fibrillation type: unspecified Qualified Code(s): I48.91 - Unspecified atrial fibrillation (2) CHF (congestive heart failure) Code(s): I50.9 - HEART FAILURE, UNSPECIFIED Qualifiers: Heart failure type: unspecified Heart failure chronicity: unspecified Qualified Code(s): I50.9 - Heart failure, unspecified (3) CAD (coronary artery disease) Code(s): I25.10 - ATHSCL HEART DISEASE OF [place] CORONARY ARTERY W/O ANG PCTRS (4) HLD (hyperlipidemia) Code(s): E78.5 - HYPERLIPIDEMIA, UNSPECIFIED (5) HTN (hypertension) Code(s): I10 - ESSENTIAL (PRIMARY) HYPERTENSION (6) Lung cancer Code(s): C34.90 - MALIGNANT NEOPLASM OF UNSP PART OF UNSP BRONCHUS OR LUNG (7) SOB (shortness of breath) Code(s): R06.02 - SHORTNESS OF BREATH (8) Uterine cancer Code(s): C55 - MALIGNANT NEOPLASM OF UTERUS, PART UNSPECIFIED 8 uti Assessment/Plan Fever Acute on Chronic CHF AFIB CAD HTN HLD RLL nodule Hx of Lung CA s/p Lt lung resection Hx of Uterine CA uti plan will stop vanco will d/w the team continue abx monitor dirrhoea if it increases stool for cdiff though the pleural fluid is small mig consider diagnostic tap
--- NOTE | 2020-01-10 16:42 | PN ---
Progress Note (short form) - Note Progress Note: s: sob better but still not at baseline, also with le edema. no cp palps. Laboratory Last Values WBC 10.0 K/mm3 (4.0-10.8) 01/09/20 05:45 RBC 3.72 M/mm3 (3.60-5.2) 01/09/20 05:45 Hgb 11.1 GM/dl (10.7-15.3) 01/09/20 05:45 Hct 34.8 % (32.4-45.2) 01/09/20 05:45 MCV 93.6 fl (80-96) 01/09/20 05:45 MCH 29.7 pg (25.7-33.7) 01/09/20 05:45 MCHC 31.8 g/dl (32.0-36.0) L 01/09/20 05:45 RDW 13.8 % (11.6-15.6) 01/09/20 05:45 Plt Count 264 K/MM3 (134-434) 01/09/20 05:45 MPV 10.8 fl (7.5-11.1) 01/09/20 05:45 Absolute Neuts (auto) 6.9 K/mm3 01/09/20 05:45 Neutrophils % 69.2 % (42.8-82.8) 01/09/20 05:45 Neutrophils % (Manual) 76.0 % (42.8-82.8) 01/07/20 07:21 Lymphocytes % 19.6 % (8-40) 01/09/20 05:45 Lymphocytes % (Manual) 14.0 % (8-40) 01/07/20 07:21 Monocytes % 9.1 % (3.8-10.2) 01/09/20 05:45 Monocytes % (Manual) 9 % (3.8-10.2) 01/07/20 07:21 Eosinophils % 1.9 % (0-4.5) 01/09/20 05:45 Eosinophils % (Manual) 1.0 % (0-4.5) 01/07/20 07:21 Basophils % 0.2 % (0-2.0) 01/09/20 05:45 Hypochromia 1+ 01/07/20 07:21 Platelet Estimate Adequate 01/07/20 07:21 Anisocytosis 1+ 01/07/20 07:21 PT with INR 21.6 SEC (10.2-13.0) H 01/06/20 08:16 INR 1.95 (0.82-1.09) H 01/06/20 08:16 PTT (Actin FS) 32.6 SECONDS (25.2-36.5) 01/06/20 08:16 Sodium 139 mmol/L (136-145) 01/10/20 07:14 Potassium 4.2 mmol/L (3.5-5.1) 01/10/20 07:14 Chloride 99 mmol/L (98-107) 01/10/20 07:14 Carbon Dioxide 30 mmol/L (21-32) 01/10/20 07:14 Anion Gap 10 MMOL/L (8-16) 01/10/20 07:14 BUN 18.0 mg/dl (7-18) 01/10/20 07:14 Creatinine 0.6 mg/dl (0.55-1.3) 01/10/20 07:14 Est GFR (CKD-EPI)AfAm 99.07 01/10/20 07:14 Est GFR (CKD-EPI)NonAf 85.48 01/10/20 07:14 Random Glucose 94 mg/dl (74-106) 01/10/20 07:14 Calcium 9.5 mg/dl (8.5-10) 01/10/20 07:14 Phosphorus 3.4 mg/dL (2.5-4.9) 01/06/20 08:52 Magnesium 2.0 mg/dL (1.8-2.4) 01/07/20 07:21 Total Bilirubin 0.6 mg/dl (0.2-1) 01/07/20 07:21 AST 22 U/L (15-37) 01/07/20 07:21 ALT 15 U/L (13-61) 01/07/20 07:21 Alkaline Phosphatase 82 U/L (45-117) 01/07/20 07:21 Creatine Kinase 35 U/L (26-192) 01/06/20 08:52 Troponin I < 0.03 ng/ml (0.00-0.05) 01/06/20 21:00 B-Natriuretic Peptide 3616.8 pg/ml (5-450) H 01/06/20 08:52 Total Protein 6.2 g/dl (6.4-8.2) L 01/07/20 07:21 Albumin 3.3 g/dl (3.4-5.0) L 01/07/20 07:21 TSH 3.20 uIU/ml (0.358-3.74) 01/06/20 08:52 Free T4 1.02 ng/dl (0.76-1.46) 01/06/20 08:52 Urine Color Yellow 01/07/20 16:32 Urine Appearance Clear 01/07/20 16:32 Urine pH 5.5 (4.5-8) 01/07/20 16:32 Urine Protein Negative (NEGATIVE) 01/07/20 16:32 Urine Glucose (UA) Negative (NEGATIVE) 01/07/20 16:32 Urine Ketones Negative (NEGATIVE) 01/07/20 16:32 Urine Blood Trace-intact (NEGATIVE) 01/07/20 16:32 Urine Nitrite Negative (NEGATIVE) 01/07/20 16:32 Urine Bilirubin Negative (NEGATIVE) 01/07/20 16:32 Urine Urobilinogen 0.2 (0.2-1.0) 01/07/20 16:32 Ur Leukocyte Esterase Negative (NEGATIVE) 01/07/20 16:32 Urine RBC 2-5 /hpf (0-4) 01/07/20 16:32 Urine WBC 5-10 (NEGATIVE) 01/07/20 16:32 Ur Transition Epith Cell Few /hpf 01/07/20 16:32 Urine Bacteria Few /hpf (NEGATIVE) 01/07/20 16:32 COVID-19 (DELILAH) Not detected (Not Detected) 01/06/20 11:14 Blood Type A NEGATIVE 01/06/20 08:49 Antibody Screen Negative 01/06/20 08:49 Vital Signs Period Temp Pulse Resp BP Sys/[place] Pulse Ox Last 24 Hr 98.4 F-99.6 F 66-90 16-20 97-144/35-62 98-100 Constitutional: Yes: Calm Eyes: Yes: Conjunctiva Clear Respiratory: Yes: Other (Left old surgical incision, (Resection CA) w/ decreased breath sounds/ contra side clear, no rales or wheezing) Gastrointestinal: Yes: Soft (no rebound or guarding.) Cardiovascular: Yes: Regular Rate and Rhythm JVD: No Carotid Bruit: No Heart Sounds: Yes: S1, S2 (rrr) Murmur: Yes: Systolic Murmur Edema: yes, trace le edema bl Peripheral Pulses WNL: Yes Neurological: Yes: Alert, Oriented no jaundice, diaphoresis not agitated Laboratory Last Values WBC 10.0 K/mm3 (4.0-10.8) 01/09/20 05:45 RBC 3.72 M/mm3 (3.60-5.2) 01/09/20 05:45 Hgb 11.1 GM/dl (10.7-15.3) 01/09/20 05:45 Hct 34.8 % (32.4-45.2) 01/09/20 05:45 MCV 93.6 fl (80-96) 01/09/20 05:45 MCH 29.7 pg (25.7-33.7) 01/09/20 05:45 MCHC 31.8 g/dl (32.0-36.0) L 01/09/20 05:45 RDW 13.8 % (11.6-15.6) 01/09/20 05:45 Plt Count 264 K/MM3 (134-434) 01/09/20 05:45 MPV 10.8 fl (7.5-11.1) 01/09/20 05:45 Absolute Neuts (auto) 6.9 K/mm3 01/09/20 05:45 Neutrophils % 69.2 % (42.8-82.8) 01/09/20 05:45 Neutrophils % (Manual) 76.0 % (42.8-82.8) 01/07/20 07:21 Lymphocytes % 19.6 % (8-40) 01/09/20 05:45 Lymphocytes % (Manual) 14.0 % (8-40) 01/07/20 07:21 Monocytes % 9.1 % (3.8-10.2) 01/09/20 05:45 Monocytes % (Manual) 9 % (3.8-10.2) 01/07/20 07:21 Eosinophils % 1.9 % (0-4.5) 01/09/20 05:45 Eosinophils % (Manual) 1.0 % (0-4.5) 01/07/20 07:21 Basophils % 0.2 % (0-2.0) 01/09/20 05:45 Hypochromia 1+ 01/07/20 07:21 Platelet Estimate Adequate 01/07/20 07:21 Anisocytosis 1+ 01/07/20 07:21 PT with INR 21.6 SEC (10.2-13.0) H 01/06/20 08:16 INR 1.95 (0.82-1.09) H 01/06/20 08:16 PTT (Actin FS) 32.6 SECONDS (25.2-36.5) 01/06/20 08:16 Sodium 139 mmol/L (136-145) 01/10/20 07:14 Potassium 4.2 mmol/L (3.5-5.1) 01/10/20 07:14 Chloride 99 mmol/L (98-107) 01/10/20 07:14 Carbon Dioxide 30 mmol/L (21-32) 01/10/20 07:14 Anion Gap 10 MMOL/L (8-16) 01/10/20 07:14 BUN 18.0 mg/dl (7-18) 01/10/20 07:14 Creatinine 0.6 mg/dl (0.55-1.3) 01/10/20 07:14 Est GFR (CKD-EPI)AfAm 99.07 01/10/20 07:14 Est GFR (CKD-EPI)NonAf 85.48 01/10/20 07:14 Random Glucose 94 mg/dl (74-106) 01/10/20 07:14 Calcium 9.5 mg/dl (8.5-10) 01/10/20 07:14 Phosphorus 3.4 mg/dL (2.5-4.9) 01/06/20 08:52 Magnesium 2.0 mg/dL (1.8-2.4) 01/07/20 07:21 Total Bilirubin 0.6 mg/dl (0.2-1) 01/07/20 07:21 AST 22 U/L (15-37) 01/07/20 07:21 ALT 15 U/L (13-61) 01/07/20 07:21 Alkaline Phosphatase 82 U/L (45-117) 01/07/20 07:21 Creatine Kinase 35 U/L (26-192) 01/06/20 08:52 Troponin I < 0.03 ng/ml (0.00-0.05) 01/06/20 21:00 B-Natriuretic Peptide 3616.8 pg/ml (5-450) H 01/06/20 08:52 Total Protein 6.2 g/dl (6.4-8.2) L 01/07/20 07:21 Albumin 3.3 g/dl (3.4-5.0) L 01/07/20 07:21 TSH 3.20 uIU/ml (0.358-3.74) 01/06/20 08:52 Free T4 1.02 ng/dl (0.76-1.46) 01/06/20 08:52 Urine Color Yellow 01/07/20 16:32 Urine Appearance Clear 01/07/20 16:32 Urine pH 5.5 (4.5-8) 01/07/20 16:32 Urine Protein Negative (NEGATIVE) 01/07/20 16:32 Urine Glucose (UA) Negative (NEGATIVE) 01/07/20 16:32 Urine Ketones Negative (NEGATIVE) 01/07/20 16:32 Urine Blood Trace-intact (NEGATIVE) 01/07/20 16:32 Urine Nitrite Negative (NEGATIVE) 01/07/20 16:32 Urine Bilirubin Negative (NEGATIVE) 01/07/20 16:32 Urine Urobilinogen 0.2 (0.2-1.0) 01/07/20 16:32 Ur Leukocyte Esterase Negative (NEGATIVE) 01/07/20 16:32 Urine RBC 2-5 /hpf (0-4) 01/07/20 16:32 Urine WBC 5-10 (NEGATIVE) 01/07/20 16:32 Ur Transition Epith Cell Few /hpf 01/07/20 16:32 Urine Bacteria Few /hpf (NEGATIVE) 01/07/20 16:32 COVID-19 (DELILAH) Not detected (Not Detected) 01/06/20 11:14 Blood Type A NEGATIVE 01/06/20 08:49 Antibody Screen Negative 01/06/20 08:49 DATA: echo 01/2019 nl LV/RV function, LA mildly dilated, mod to severe MAC, mod to severe MR, mod to severe TR, PASP at least 39 mmHg mibi 01/2019 med sized, mild severity reversible defect in mid anterior wall and small fixed defect in mid inferior wall with mild marylou-infarct ischemia, nl wall motion tele: afib, rate controlled ecg: afib, rate ok, no sig change prior cxr: no chf IMP/PLAN: 79f h/o CAD s/p PCI, hx lung cancer s/p resection p/w palpitations, dyspnea, afib, CHF afib: - cont cardizem, rate controlled - recent echo here with normal biV fxn, mod-severe MR/mod TR and mod - on eliquis 5 mg BID acute on chronic diastolic HF: - recent echo shows normal biV fx, moderate to severe MR which may improve w/ optimized volume status. - recent admit for chf, diuresed but was not taking lasix at home and now presents with vol overload - symptoms improving with iv lasix but still with vol overload, cr stable so will increase lasix to 40 bid from qd - check daily chem7, wts HTN: - cont cardizem HLD: - cont statin CAD: - cont statin, ac history of lung cancer: - manage per primary
[2020-01-10] MEDS: ATORVASTATIN CA 10 MG TABLET (FP) PO SCH (21:13)
[2020-01-11] MEDS: PIPERACILLIN/TAZOB 3.375 GM 3.375 GM in DEXTROSE 5%-WATER - 50 ML IVPB SCH ×2 (02:00→10:49)
[2020-01-11] MEDS ORDERED: PIPERACILLIN/TAZOBACTAM 3.375 GM VIAL IVPB ONE ×2 (03:08→10:46)
[2020-01-11] MEDS ORDERED: DEXTROSE 5%-WATER - 50 ML IVPB ONE ×2 (03:09→10:46)
[2020-01-11] MEDS ORDERED: FUROSEMIDE 40 MG/4 ML INJECTABLE VIAL IVPUSH SCH (06:00)
[2020-01-11 06:46] VITALS: BP 137/67; TEMP 98.7
[2020-01-11 08:34] LABS: CALCIUM 9.1 mg/dl (8.5-10); CREATININE 0.7 mg/dl (0.55-1.3); POTASSIUM 3.6 mmol/L (3.5-5.1)
[2020-01-11 08:36] LABS: BASO % 0.3 % (0-2.0); EOS % 2.8 % (0-4.5); HEMATOCRIT 30.3 % (32.4-45.2); HEMOGLOBIN 9.9 GM/dl (10.7-15.3); LYMPH % 19.1 % (8-40); MCH 30.6 pg (25.7-33.7); MCHC 32.7 g/dl (32.0-36.0); MEAN CELL VOLUME 93.6 fl (80-96); MEAN PLT VOLUME 10.4 fl (7.5-11.1); MONO % 7.7 % (3.8-10.2); NEUT % 70.1 % (42.8-82.8); PLATELET COUNT 226 K/MM3 (134-434); RBC 3.24 M/mm3 (3.60-5.2); RDW 13.9 % (11.6-15.6); WHITE BLOOD COUNT 8.5 K/mm3 (4.0-10.8)
--- NOTE | 2020-01-11 09:05 | PN ---
Physical Exam: SUBJECTIVE: Patient seen and examined OBJECTIVE: Vital Signs Period Temp Pulse Resp BP Sys/[place] Pulse Ox Last 24 Hr 98.4 F-99.0 F 64-93 16-20 97-139/53-67 99-100 GENERAL: The patient is awake, alert, and fully oriented, in no acute distress. HEAD: Normal with no signs of trauma. EYES: PERRL, extraocular movements intact, sclera anicteric, conjunctiva clear. No ptosis. ENT: Ears normal, nares patent, oropharynx clear without exudates, moist mucous membranes. NECK: Trachea midline, full range of motion, supple. LUNGS: Breath sounds equal, clear to auscultation bilaterally, no wheezes, no crackles, no accessory muscle use. HEART: Regular rate and rhythm, S1, S2 without murmur, rub or gallop. ABDOMEN: Soft, nontender, nondistended, normoactive bowel sounds, no guarding, no rebound, no hepatosplenomegaly, no masses. EXTREMITIES: 2+ pulses, warm, well-perfused, no edema. NEUROLOGICAL: Cranial nerves II through XII grossly intact. Normal speech, gait not observed. PSYCH: Normal mood, normal affect. SKIN: Warm, dry, normal turgor, no rashes or lesions noted Laboratory Results - last 24 hr 01/11/20 01/11/20 07:02 07:02 WBC 8.5 RBC 3.24 L Hgb 9.9 L Hct 30.3 L MCV 93.6 MCH 30.6 MCHC 32.7 RDW 13.9 Plt Count 226 MPV 10.4 Absolute Neuts (auto) 6.0 Neutrophils % 70.1 Lymphocytes % 19.1 Monocytes % 7.7 Eosinophils % 2.8 Basophils % 0.3 Sodium 140 Potassium 3.6 Chloride 102 Carbon Dioxide 28 Anion Gap 10 BUN 25.0 H Creatinine 0.7 Est GFR (CKD-EPI)AfAm 94.18 Est GFR (CKD-EPI)NonAf 81.26 Random Glucose 100 Calcium 9.1 Active Medications Generic Name Dose Route Start Last Admin Trade Name Freq PRN Reason Stop Dose Admin Acetaminophen 650 mg 01/07/20 19:17 Tylenol - PO Q6H PRN FEVER Apixaban 5 mg 01/06/20 22:00 01/10/20 21:13 Eliquis - PO 5 mg BID HI Administration Atorvastatin Calcium 10 mg 01/06/20 22:00 01/10/20 21:13 Lipitor - PO 10 mg HS HI Administration Diltiazem HCl 240 mg 01/07/20 10:00 01/10/20 10:14 Cardizem Cd - PO 240 mg DAILY HI Administration Furosemide 40 mg 01/11/20 06:00 01/11/20 06:03 Lasix Injection - IVPUSH 40 mg BID@0600,1400 HI Administration Piperacillin Sod/Tazobactam 50 mls @ 100 mls/hr 01/08/20 11:00 01/11/20 02:00 Sod 3.375 gm/ Dextrose IVPB 100 mls/hr Q8H-IV HI Administration Protocol Lisinopril 40 mg 01/07/20 10:00 01/10/20 10:15 Prinivil PO 40 mg DAILY HI Administration Sertraline HCl 50 mg 01/07/20 10:00 01/10/20 10:15 Zoloft - PO 50 mg DAILY HI Administration ASSESSMENT/PLAN:
[2020-01-11 09:50] VITALS: PULSE 84
--- NOTE | 2020-01-11 10:16 | PN ---
Progress Note (short form) - Note Progress Note: cc: dyspnea s: sob and edema better. no chest pain, palps, dizziness Current Medications Generic Name Dose Route Start Last Admin Trade Name Jeannette PRN Reason Stop Dose Admin Acetaminophen 650 mg 01/07/20 19:17 Tylenol - PO Q6H PRN FEVER Apixaban 5 mg 01/06/20 22:00 01/10/20 21:13 Eliquis - PO 5 mg BID HI Administration Atorvastatin Calcium 10 mg 01/06/20 22:00 01/10/20 21:13 Lipitor - PO 10 mg HS HI Administration Diltiazem HCl 240 mg 01/07/20 10:00 01/10/20 10:14 Cardizem Cd - PO 240 mg DAILY HI Administration Furosemide 40 mg 01/11/20 06:00 01/11/20 06:03 Lasix Injection - IVPUSH 40 mg BID@0600,1400 HI Administration Piperacillin Sod/Tazobactam 50 mls @ 100 mls/hr 01/08/20 11:00 01/11/20 02:00 Sod 3.375 gm/ Dextrose IVPB 100 mls/hr Q8H-IV HI Administration Protocol Lisinopril 40 mg 01/07/20 10:00 01/10/20 10:15 Prinivil PO 40 mg DAILY HI Administration Sertraline HCl 50 mg 01/07/20 10:00 01/10/20 10:15 Zoloft - PO 50 mg DAILY HI Administration Vital Signs Period Temp Pulse Resp BP Sys/Santa Pulse Ox Last 24 Hr 98.4 F-99.0 F 64-93 16-16 97-137/53-67 93-100 Constitutional: Yes: Calm Eyes: Yes: Conjunctiva Clear Respiratory: Yes: Other (Left old surgical incision, (Resection CA) w/ decreased breath sounds/ contra side clear, no rales or wheezing) Gastrointestinal: Yes: Soft (no rebound or guarding.) Cardiovascular: Yes: Regular Rate and Rhythm JVD: No Carotid Bruit: No Heart Sounds: Yes: S1, S2 (rrr) Murmur: Yes: Systolic Murmur Edema: yes, trace le edema bl Peripheral Pulses WNL: Yes Neurological: Yes: Alert, Oriented no jaundice, diaphoresis not agitated DATA: echo 01/2019 nl LV/RV function, LA mildly dilated, mod to severe MAC, mod to severe MR, mod to severe TR, PASP at least 39 mmHg mibi 01/2019 med sized, mild severity reversible defect in mid anterior wall and small fixed defect in mid inferior wall with mild marylou-infarct ischemia, nl wall motion tele: afib, rate controlled ecg: afib, rate ok, no sig change prior cxr: no chf IMP/PLAN: 79f h/o CAD s/p PCI, hx lung cancer s/p resection p/w palpitations, dyspnea, afib, CHF afib: - cont cardizem, rate controlled - recent echo here with normal biV fxn, mod-severe MR/mod TR and mod - on eliquis 5 mg BID acute on chronic diastolic HF: - recent echo shows normal biV fx, moderate to severe MR which may improve w/ op timized volume status. - recent admit for chf, diuresed but was not taking lasix at home and now presents with vol overload - lasix increased to 40 mg IV BID today, continue - check daily chem7, wts HTN: - cont cardizem HLD: - cont statin CAD: - cont statin, ac history of lung cancer: - manage per primary
[2020-01-11] MEDS: SERTRALINE HCL 50 MG TABLET (FP) PO SCH (10:48)
[2020-01-11] MEDS: APIXABAN 5 MG TABLET PO SCH (10:48)
[2020-01-11] MEDS: LISINOPRIL 20 MG TABLET (FP) PO SCH (10:48)
[2020-01-11] MEDS ORDERED: POTASSIUM CHLORIDE TABS 20 MEQ TABLET.ER (FP) PO ONE (12:45)
--- NOTE | 2020-01-11 13:04 | DS ---
Physical Exam: SUBJECTIVE: Patient seen and examined OBJECTIVE: Vital Signs Period Temp Pulse Resp BP Sys/Santa Pulse Ox Last 24 Hr 98.4 F-99.0 F 64-93 16-16 97-137/53-67 93-100 PHYSICAL EXAM GENERAL: The patient is awake, alert, and fully oriented, in no acute distress. LUNGS: CTA HEART: Irregular S1, S2 ABDOMEN: Soft, nontender, nondistended. EXTREMITIES: 2+ pulses, warm, well-perfused, no edema. NEUROLOGICAL: Cranial nerves II through XII grossly intact. Normal speech, gait not observed. PSYCH: Normal mood, normal affect. SKIN: Warm, dry, normal turgor LABS Laboratory Results - last 24 hr 01/11/20 01/11/20 07:02 07:02 WBC 8.5 RBC 3.24 L Hgb 9.9 L Hct 30.3 L MCV 93.6 MCH 30.6 MCHC 32.7 RDW 13.9 Plt Count 226 MPV 10.4 Absolute Neuts (auto) 6.0 Neutrophils % 70.1 Lymphocytes % 19.1 Monocytes % 7.7 Eosinophils % 2.8 Basophils % 0.3 Sodium 140 Potassium 3.6 Chloride 102 Carbon Dioxide 28 Anion Gap 10 BUN 25.0 H Creatinine 0.7 Est GFR (CKD-EPI)AfAm 94.18 Est GFR (CKD-EPI)NonAf 81.26 Random Glucose 100 Calcium 9.1 HOSPITAL COURSE: Date of Admission:01/06/20 Date of Discharge: 01/11/20 Pre hospital course 79 year-old female with a PMH significant for HTN, HLD, CAD s/p stents x 2, atrial fibrillation on Eliquis (diagnosed two weeks ago), diastolic heart failure, and lung cancer s/p left pneumonectomy. Admitted to [facility] 12/27-01/01/20 for hypoxic respiratory failure secondary to newly diagnosed atrial fibrillation and volume overload. She was diuresed and started on Eliquis. On day of admission patient awoke feeling SOB, the same way she felt prior to her previous admission. Her daughter brought her to the ED. Patient had not been on any diuretic since her discharge on 12/31. Denied chest pain, palpitations, diaphoresis, lightheadedness. ER course (1) ECG: afib @ 103 (2) Lasix IVP 40mg x 1 -->1200cc's UOP Subsequent hospital course 79 year-old female with a PMH significant for HTN, HLD, CAD s/p stents x 2, atrial fibrillation on Eliquis, diastolic heart failure, and lung cancer s/p left pneumonectomy. Admitted for acute on chronic diastolic heart failure. Acute on chronic diastolic heart failure --12/30/19 Echo: LV normal, EF 60-65%; RV normal; BLAE; moderate to severe MR, moderate TR, trace PI --elevated BNP, bilateral lower extremity edema, mild to moderate respiratory distress observed in ED --treated with Lasix IV, lisinopril, diltiazem CD, and CT chest on 01/06 showed improved vascular congestion; CXR on 01/10 continued improvement --discharge to home on PO lasix 40mg daily, outpatient followup with Dr. Rendon Atrial fibrillation --HR controlled, continued diltiazem CD --continued Eliquis Hypertension --BP stable --continued lisinopril, diltiazem CD Hyperlipidemia --continued Lipitor Coronary artery disease --no ASA since on Eliquis Lung cancer s/p left pneumonectomy New pulmonary nodule --1.7 x 1.3 RLL nodule seen on CT on 12/27 and again on 01/06 --outpatient follow up with Dr. Heredia Hypoxia Fever Pyuria --developed fever to 100.8 on day #2 of hospitalization and defervesced the same day; there was concern that patient was recently discharged from the hospital and also was hypoxic to 87% with flat surface ambulation on room air; CT of chest showed vascular congestion but no sign of infiltrate --urine culture grew LFGNB <10k and patient was asymptomatic for signs of UTI; she was treated treated empirically with Zosyn x 4 days, discharged off antibiotics Minutes to complete discharge: 35 Discharge Summary Problems reviewed: Yes Reason For Visit: sob Current Active Problems Atrial fibrillation (Acute) CHF (congestive heart failure) (Acute) Condition: Guarded - Instructions Referrals: Goerge Colindres MD [Primary Care Provider] - - Home Medications Comprehensive Discharge Medication List: Ambulatory Orders Acetaminophen [Tylenol .Extra-Strength -] 1,000 mg PO Q8H PRN 04/26/18 Atorvastatin Ca [Lipitor] 10 mg PO HS 04/26/18 Cholecalciferol (Vitamin D3) [Vitamin D3] 2,000 unit PO DAILY 04/26/18 Loratadine [Claritin] 10 mg PO DAILY PRN 04/26/18 Sertraline HCl [Zoloft -] 50 mg PO DAILY 04/26/18 Diltiazem Cd [Cardizem Cd -] 240 mg PO DAILY cap.cd.24h 02/10/19 Benazepril HCl 40 mg PO DAILY 12/29/19 Apixaban [Eliquis -] 5 mg PO BID #60 tablet 01/01/20 This patient is new to me today: No Emergency Visit: Yes ED Registration Date: 01/06/20 Care time: The patient presented to the Emergency Department on the above date and was hospitalized for further evaluation of their emergent condition. Critical Care patient: No - Discharge Referral Referred to [facility] Med P.C.: Yes Physician Referral: George Colindres MD (Int Med)
--- NOTE | 2020-01-11 13:08 | PN ---
Progress Note, Physician - Current Medication List Current Medications: Active Medications Acetaminophen (Tylenol -) 650 mg PO Q6H PRN PRN Reason: FEVER Apixaban (Eliquis -) 5 mg PO BID [facility] Last Admin: 01/11/20 10:48 Dose: 5 mg Documented by: Atorvastatin Calcium (Lipitor -) 10 mg PO HS [facility] Last Admin: 01/10/20 21:13 Dose: 10 mg Documented by: Diltiazem HCl (Cardizem Cd -) 240 mg PO DAILY [facility] Last Admin: 01/11/20 10:48 Dose: 240 mg Documented by: Furosemide (Lasix Injection -) 40 mg IVPUSH BID@0600,1400 [facility] Last Admin: 01/11/20 06:03 Dose: 40 mg Documented by: Piperacillin Sod/Tazobactam (Sod 3.375 gm/ Dextrose) 50 mls @ 100 mls/hr IVPB Q8H-IV HI; Protocol Last Admin: 01/11/20 10:49 Dose: 100 mls/hr Documented by: Lisinopril (Prinivil) 40 mg PO DAILY [facility] Last Admin: 01/11/20 10:48 Dose: 40 mg Documented by: Sertraline HCl (Zoloft -) 50 mg PO DAILY [facility] Last Admin: 01/11/20 10:48 Dose: 50 mg Documented by: - Objective Vital Signs: Vital Signs Temperature 98.7 F 01/11/20 06:00 Pulse Rate 84 01/11/20 08:47 Respiratory Rate 16 01/11/20 10:00 Blood Pressure 137/67 01/11/20 06:00 O2 Sat by Pulse Oximetry (%) 100 01/11/20 10:00 Labs: CBC, BMP 01/11/20 07:02 01/11/20 07:02 INR, PTT INR 1.95 (0.82-1.09) H 01/06/20 08:16
== END 2020-01-11 14:39 | disposition home or self-care (01) | DRG 293 ==
LOC: FER 08:00 → FM/S 12:14
PROVIDERS: ADMIT Internal Medicine; ATTEND Nurse Practitioner Acute Care
DX: I11.0 Hypertensive heart disease with heart failure (principal); I50.33 Acute on chronic diastolic (congestive) heart failure; K21.9 Gastro-esophageal reflux disease without esophagitis; E78.5 Hyperlipidemia, unspecified; I25.10 Atherosclerotic heart disease of native coronary artery without angina pectoris; Z85.118 Personal history of other malignant neoplasm of bronchus and lung; I48.91 Unspecified atrial fibrillation; Z79.01 Long term (current) use of anticoagulants; R91.1 Solitary pulmonary nodule; Z98.61 Coronary angioplasty status; Z87.891 Personal history of nicotine dependence; I34.0 Nonrheumatic mitral (valve) insufficiency; Z85.42 Personal history of malignant neoplasm of other parts of uterus; Z91.14 Patient's other noncompliance with medication regimen; I36.1 Nonrheumatic tricuspid (valve) insufficiency; F32.9 Major depressive disorder, single episode, unspecified
CPT/HCPCS: 36415; 71045-TC-FY; 71250-TC; 80048; 80053; 81003; 81015; 82550; 83735; 83880; 84100; 84439; 84443; 84481; 84484; 85025; 85610; 85730; 86850; 86900; 86901; 87040; 87086; 87252; 87899; 93005; 97116-GP; 97162-GP; 99285-25; G0480; U0003

== ENCOUNTER 2020-03-08 20:16 | Emergency (ER) | payer OTHER ==
[2020-03-08 20:25] VITALS: BP 137/64; PULSE 90; TEMP 98.6; BMI 28.5
--- OUTSIDE RECORDS SUMMARY | 2020-03-08 20:38 | XMS ---
:1940 Author Organization [facility] Care Team Providers Name Role Phone Ana Albert MD Unavailable Unavailable Hector Joel MD Unavailable Unavailable Re-disclosure Warning The records that you are about to access may contain information from federally- assisted alcohol or drug abuse programs. If such information is present, then the following federally mandated warning applies: This information has been disclosed to you from records protected by federal confidentiality rules (42 CFR part 2). The federal rules prohibit you from making any further disclosure of this information unless further disclosure is expressly permitted by the written consent of the person to whom it pertains or as otherwise permitted by 42 CFR part 2. A general authorization for the release of medical or other information is NOT sufficient for this purpose. The Federal rules restrict any use of the information to criminally investigate or prosecute any alcohol or drug abuse patient.The records that you are about to access may contain highly sensitive health information, the redisclosure of which is protected by Article 27-F of the [facility] Public Health law. If you continue you may haveaccess to information: Regarding HIV / AIDS; Provided by facilities licensed or operated by the [facility] Office of Mental Health; or Provided by the [facility] Office for People With Developmental Disabilities. If such information is present, then the following [facility] mandated warning applies: This information has been disclosed to you from confidential records which are protected by state law. State law prohibits you from making any further disclosure of this information without the specific written consent of the person to whom it pertains, or as otherwise permitted by law. Any unauthorized further disclosure in violation of state law may result in a fine or skilled nursing sentence or both. A general authorization for the release of medical or other information is NOT sufficient authorization for further disclosure. Allergies and Adverse Reactions Type Description Substance Reaction Status Data Source(s ) Drug allergy No Known Drug No Known Drug NO KNOWN ALLERG W genna Corbetts Allergies Allergies Hospital Encounters Encounter Providers Location Date Indications Data Source(s ) Outpatient Attender: Hector 01/26/2020 [facility] 06:55:00 AM Hospital MDAttender: EDT - Ana Albert 01/26/2020 06:56:00 AM EDT [facility] Patient discharged. Insurance Providers Payer name Policy type Policy ID Covered Covered constitution party's Policy P memo / Coverage constitution party ID relationship to Simon Inf ormation type simon MEDICARE [id number] SP [id number] 15 5 MEDICARE [id number] SP [id number] 15 5 MEDICARE [id number] PT [id number] 15 5 [place] [id number] [place] B [place] [id number] 1 [id number] PART B 5 [employer] MEDICARE [id number] SP [id number] A Problems, Conditions, and Diagnoses Code Display Name Description Problem Type Effective Dates Data Source(s) Z87.891 Personal history of Z87.891 Diagnosis 01/26/2020 [facility] nicotine dependence 06:55:00 AM EDT Hospital Z85.118 Personal history of Z85.118 Diagnosis 01/26/2020 [facility] other malignant 06:55:00 AM EDT Hosp ital neoplasm of bronchus and lung 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.01 Diagnosis 01/26/2020 [facility] use of anticoagulants 06:55:00 AM ED T Hospital Z11.59 Encounter for Z11.59 Diagnosis 01/26/2020 [facility] screening for other 06:55:00 AM EDT Hospital viral diseases 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, 06:55:00 AM EDT Hospital aortic and tricuspid valves I10 Essential (primary) I10 Diagnosis 01/26/2020 [facility] hypertension 06:55:00 AM EDT Hospita l I48.19 I48.19 I48.19 Diagnosis 01/26/2020 [facility] 06:55:00 AM EDT Hospital Surgeries/Procedures Procedure Description Date Indications Data Source(s) Electrocardiographic procedure 01/26/2020 [facility] (procedure) 12:00:00 AM Hospital EDT Transesophageal 01/26/2020 [facility] echocardiography (procedure) 12:00:00 AM Hospital EDT Electrocardiographic procedure 01/26/2020 [facility] (procedure) 12:00:00 AM Hospital EDT Results ID Date Data Source [id number] 02/27/2020 05:32:00 [facility] Name Value Range Interpretation Description Data Sup porting Code Source(s) Document(s ) SARS-CoV-2 [facility] (COVID-19) RNA panel - Unspecified specimen by DELILAH with probe detection This lab was ordered by [id number]-TELEMETRY/ VASCULAR and reported by [facility]. ID Date Data Source [id number] 01/26/2020 07:12:00 AM EDT [facility] Name Value Range Interpretation Description Data Sup porting Code Source(s) Document(s ) Calcium 11.0 [facility] [Mass/volume mg/dL Hospital ] in Serum or Plasma ID Date Data Source [id number] 01/26/2020 07:12:00 AM EDT [facility] Name Value Range Interpretation Code Description Data Vane rce(s) Supporting Document(s ) Urea 44.0 [facility] nitrogen/Cre Hospital atinine [Mass Ratio] in Serum or Plasma ID Date Data Source [id number] 01/26/2020 07:12:00 AM EDT [facility] Value Range Interpretation Description Data Sup porting Code Source(s) Document(s ) Creatinine 1.0 mg/dL [facility] [Mass/volume] Hospital in Serum or Plasma ID Date Data Source [id number] 01/26/2020 07:12:00 AM EDT [facility] Value Range Interpretation Description Data Sup porting Code Source(s) Document(s ) Urea 44 mg/dL [facility] nitrogen Hospital [Mass/volume ] in Serum or Plasma ID Date Data Source [id number] 01/26/2020 07:12:00 AM EDT [facility] Value Range Interpretation Code Description Data Vane rce(s) Supporting Document(s ) Anion gap in 13 [facility] Serum or [facility] Plasma ID Date Data Source [id number] 01/26/2020 07:12:00 AM EDT [facility] Value Range Interpretation Description Data Sup porting Code Source(s) Document(s ) Carbon 34 mmol/L [facility] dioxide, Hospital total [Moles/volu me] in Serum or Plasma ID Date Data Source [id number] 01/26/2020 07:12:00 AM EDT [facility] Value Range Interpretation Description Data Sup porting Code Source(s) Document(s ) Chloride 100 [facility] [Moles/volum mmol/L Hospital e] in Serum or Plasma ID Date Data Source [id number] 01/26/2020 07:12:00 AM EDT [facility] Value Range Interpretation Description Data Sup porting Code Source(s) Document(s ) Potassium 4.1 [facility] [Moles/volume mmol/L Hospital ] in Serum or Plasma ID Date Data Source [id number] 01/26/2020 07:12:00 AM EDT [facility] Name Value Range Interpretation Description Data Sup porting Code Source(s) Document(s ) Sodium 143 mmol/L [facility] [Moles/volu Hospital me] in Serum or Plasma ID Date Data Source [id number] 01/26/2020 07:12:00 AM EDT [facility] Name Value Range Interpretation Description Data Sup porting Code Source(s) Document(s ) Glucose 115 mg/dL [facility] [Mass/volume Hospital ] in Serum or Plasma ID Date Data Source [id number] 01/26/2020 07:12:[facility] THERAPEUTIC RANGES:UNFRACTIONATED HEPARI N THERAPY: 60-90 SECONDSARGATROBAN THERAPY: 49-99 SECONDS Name Value Range Interpretation Description Data Sup porting Code Source(s) Document(s ) aPTT in 38.2 s [facility] Platelet poor [facility] plasma by Coagulation assay ID Date Data Source [id number] 01/26/2020 07:12:00 [facility] THERAPEUTIC RANGE FOR STANDARD ORALANTIC OAGULANT THERAPY: 2.0-3.0THERAPEUTIC RANGE FOR HIGH DOSE ORALANTICOAGULANT THERAPY (MECHANICAL HEARTVALVE REPLACEMENT): 2.5-3.5 Name Value Range Interpretation Description Data Sup porting Code Source(s) Document(s ) INR in Platelet 2.0 [facility] poor plasma by Hospital Coagulation assay ID Date Data Source [id number] 01/26/2020 07:12:00 AM EDT [facility] Name Value Range Interpretation Description Data Sup porting Code Source(s) Document(s ) PT panel - 23.0 s [facility] Platelet poor [facility] plasma by Coagulation assay ID Date Data Source [id number] 01/26/2020 07:12:00 [facility] Name Value Range Interpretation Description Data Sup porting Code Source(s) Document(s ) Platelet mean 12.6 fL [facility] [Entitic volume] in Blood by Automated count ID Date Data Source [id number] 01/26/2020 07:12:00 [facility] Name Value Range Interpretation Description Data Sup porting Code Source(s) Document(s ) Platelets 261 [facility] [#/volume] in 10*3/uL Hospital Blood by Automated count ID Date Data Source [id number] 01/26/2020 07:12:00 AM [facility] Value Range Interpretation Description Data Sup porting Code Source(s) Document(s ) Erythrocyte 14.1 % [facility] width [Ratio] by Automated count ID Date Data Source [id number] 01/26/2020 07:12:00 AM [facility] Value Range Interpretation Description Data Sup porting Code Source(s) Document(s ) Erythrocyte mean 30.1 [facility] corpuscular g/dL Hospital hemoglobin concentration [Mass/volume] by Automated count ID Date Data Source [id number] 01/26/2020 07:12:00 AM [facility] Value Range Interpretation Description Data Sup porting Code Source(s) Document(s ) Erythrocyte 28.9 pg [facility] corpuscular hemoglobin [Entitic mass] by Automated count ID Date Data Source [id number] 01/26/2020 07:12:00 AM [facility] Value Range Interpretation Description Data Sup porting Code Source(s) Document(s ) Erythrocyte 96.0 fL [facility] corpuscular volume [Entitic volume] by Automated count ID Date Data Source [id number] 01/26/2020 07:12:00 AM [facility] Value Range Interpretation Description Data Sup porting Code Source(s) Document(s ) Hematocrit 38.5 % [facility] [Volume Hospital Fraction] of Blood by Automated count ID Date Data Source [id number] 01/26/2020 07:12:00 AM [facility] Value Range Interpretation Description Data Sup porting Code Source(s) Document(s ) Hemoglobin 11.6 g/dL [facility] [Mass/volume] Hospital in Blood ID Date Data Source [id number] 01/26/2020 07:12:00 AM EDT [facility] Name Value Range Interpretation Description Data Sup porting Code Source(s) Document(s ) Erythrocytes 4.01 [facility] [#/volume] in 10*6/uL Hospital Blood by Automated count ID Date Data Source [id number] 01/26/2020 07:12:00 AM EDT [facility] Name Value Range Interpretation Description Data Sup porting Code Source(s) Document(s ) Leukocytes 10.0 [facility] [#/volume] in 10*3/uL Hospital Blood by Automated count ID Date Data Source [id number] 01/06/2020 11:14:00 AM EDT [facility] Name Value Range Interpretation Description Data Sup porting Code Source(s) Document(s ) SARS [facility] coronavirus 2 RNA This lab was ordered by DAO h[facility] and reported by [facility]. ID Date Data Source [id number] 12/28/2019 06:05:00 PM EDT [facility] Name Value Range Interpretation Description Data Sup porting Code Source(s) Document(s ) SARS [facility] coronavirus 2 RNA This lab was ordered by [facility] and reported by [facility]. Procedure Vital Signs ID Date Data Source [id number] Name Value Range Interpretation Code Description Data Source(s) Systolic blood 97 mm[Hg] 97 mm[Hg] [facility] Diastolic blood 52 mm[Hg] 52 mm[Hg] [facility] Respiratory rate 16 /min 16 /min [facility] Heart rate 69 /min 69 /min [facility] Body temperature 37.38441 Ed[place] 37.86337 [facility] Body temperature 99.0 [degF] 99.0 [degF] [facility] Body mass index 28.7 kg/m2 28.7 kg/m2 [facility] ins (BMI) [Ratio] Hospital Body weight 157 [lb_av] 157 [lb_av] [facility]
--- NOTE | 2020-03-08 20:55 | PDOC ---
History of Present Illness - General Chief Complaint: Rash Stated Complaint: rash Time Seen by Provider: 03/08/20 20:44 History Source: Patient Exam Limitations: No Limitations - History of Present Illness Initial Comments: 03/08/20 20:55 This is an 79-year-old female brought in by her daughter for evaluation of a rash on her abdomen. Rash is itchy and burning as per patient. Patient denies any other complaints. Allergies: as per nursing notes Past Medical History: High cholesterol coronary artery disease Social history: Lives with family. No smoking. No alcohol. No illicit drugs. Surgical history: None General: No fevers or chills, no weakness, no weight loss HEENT: No change in vision. No sore throat,. No ear pain CardioVascular: no chest discomfort. No shortness of breath Respiratory:No cough, or wheezing. Gastrointestinal: no nausea, vomiting, diarrhea or constipation, No rectal bleeding Genitourinary: No dysuria, hematuria, or frequency Musculoskeletal: No joint or muscle pain or swelling Neurologic: No headache, vertigo, dizziness or loss of consciousness Psychiatric: nor depression Skin: No rashes or easy bruising Endocrine: no increased thirst or abnormal weight change Allergic: no skin or latex allergy All other systems reviewed and normal GENERAL: The patient is awake, alert, and fully oriented, in no acute distress. HEENT:Head is normal with no signs of trauma. Eyes: Pupils equal, round and reactive to light, Ears, and Throat are normal. Neck is supple. No Lymphadenopathy. EXTREMITIES:atraumatic, Normal range of motion, no edema. NEUROLOGICAL: Normal speech, normal gait. PSYCH: Normal mood, normal affect. 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 Patient is also noted to have a large ecchymotic area on her right groin thigh area secondary to recent cardiac cath procedure. 03/08/20 20:59 Assessment and plan: This is an 79-year-old female with a Lashell infection of the folds of the abdominal wall and pelvic area. Patient given prescription for an antifungal cream and discharged. Patient told to follow-up with her primary care doctor Past History - Medical History Allergies/Adverse Reactions: Allergies Allergy/AdvReac Type Severity Reaction Status Date / Time No Known Allergies Allergy Verified 03/08/20 20:32 Home Medications: Ambulatory Orders Acetaminophen [Tylenol .Extra-Strength -] 1,000 mg PO Q8H PRN 04/26/18 Atorvastatin Ca [Lipitor] 10 mg PO HS 04/26/18 Cholecalciferol (Vitamin D3) [Vitamin D3] 2,000 unit PO DAILY 04/26/18 Loratadine [Claritin] 10 mg PO DAILY PRN 04/26/18 Sertraline HCl [Zoloft -] 50 mg PO DAILY 04/26/18 Diltiazem Cd [Cardizem Cd -] 240 mg PO DAILY cap.cd.24h 02/10/19 Benazepril HCl 40 mg PO DAILY 12/29/19 Apixaban [Eliquis -] 5 mg PO BID #60 tablet 01/01/20 Clotrimazole [Jock Itch Relief] 15 gm TP BID #1 tube 03/08/20 Anemia: No Asthma: No Cancer: Yes (UTERUS/LUNG) Cardiac Disorders: Yes (CAD,stents x2) CVA: No COPD: No CHF: No Dementia: No Diabetes: No (BORDERLINE- DIET CONTROLLED) GI Disorders: Yes (GERD DIVERTICULITIS) Disorders: No HTN: Yes Hypercholesterolemia: Yes Liver Disease: No Seizures: No Thyroid Disease: No - Surgical History Abdominal Surgery: Yes Appendectomy: No Cardiac Surgery: No (Angioplasty with Stents 09/2014) Cholecystectomy: Yes Lung Surgery: Yes (Left Lobectomy) Neurologic Surgery: No Orthopedic Surgery: No - Immunization History Td Vaccination: (UNKNOWN) Immunization Up to Date: Yes - Psycho-Social/Smoking History Smoking Status: No Smoking History: Never smoked Have you smoked in the past 12 months: No Number of Cigarettes Smoked Daily: 0 If you are a former smoker, when did you quit?: 20 YEARS AGO - Substance Abuse Hx (Audit-C & DAST Scrn) How often the patient has a drink containing alcohol: Never Score: In Men: 4 or > Positive; In Women: 3 or > Positive: 0 Screen Result (Pos requires Nsg. Audit-10AR): Negative In the last yr the pt used illegal drug/Rx for NonMed reason: No Score: Yes response is considered Positive: 0 Screen Result (Positive result requires Nsg. DAST-10): Negative *Physical Exam - Vital Signs Last Vital Signs Temp Pulse Resp BP Pulse Ox 98.6 F 90 18 137/64 99 03/08/20 20:21 03/08/20 20:21 03/08/20 20:21 03/08/20 20:21 03/08/20 20:21 Discharge - Discharge Information Problems reviewed: Yes Clinical Impression/Diagnosis: Lashell albicans infection Condition: Good Disposition: HOME - Admission No - Follow up/Referral Referrals: George Colindres MD [Primary Care Provider] - - Patient Discharge Instructions Additional Instructions: Apply the cream to the area twice a day until symptoms have resolved. Try to keep the area as dry as possible as a moist warm environment increase and encourage the growth of the yeast infection. Return to the emergency department immediately with ANY new, persistent or worsening symptoms. Continue any medications as previously prescribed by your physician. You should follow up with your primary doctor as soon as possible regarding today's emergency department visit. . Please make sure your doctor reviews the results of your emergency evaluation. Thank you for coming to the Emergency Department today for your care. It was a pleasure to see you today. Please note that your evaluation is INCOMPLETE until you follow-up with your doctor. - Post Discharge Activity
== END 2020-03-08 21:10 | disposition home or self-care (01) ==
LOC: FER 20:16
DX: B37.9 Candidiasis, unspecified (principal)
CPT/HCPCS: 99283-25